=== PATIENT | female | born 1980 | race Two or more races ===

== ENCOUNTER 2023-04-03 10:40 | Emergency (ER) | payer MEDICARE, OTHER ==
[~2023-04-03] VITALS: Ht 167.6 cm; Wt 63.6 kg
[2023-04-03] MEDS ORDERED: ACETAMINOPHEN/CODEINE#3 (300/30mg) TAB PO ONE (11:30)
[2023-04-03] MEDS ORDERED: DexAMETHasone SOD PHOS 10MG/1ML VIAL INJ IM ONE (11:30)
[2023-04-03] MEDS ORDERED: diphenhdrAMINE HCL 25 MG CAP PO ONE (11:30)
[2023-04-03 11:38] VITALS: TEMP 99.8
[2023-04-03 12:00] LABS: Basophils # (auto) 0.1 10 ^3/uL (0-0.2); Basophils % (auto) 0.6 % (0.0-2.0); Eosinophils # (auto) 0.1 10 ^3/uL (0-0.8); Eosinophils % (auto) 0.7 % (0.0-7.0); Hematocrit 41.8 % (36.0-46.0); Hemoglobin 13.9 g/dL (12.2-16.2); Lymphocytes # (auto) 0.9 10 ^3/uL (0.4-5.4); Lymphocytes % (auto) 8.8 % (10.0-50.0); Mean Corpuscular Hemoglobin 30.7 pg (28.0-32.0); Mean Corpuscular Hgb Conc. 33.3 g/dL (32.0-36.0); Mean Corpuscular Volume 92.3 fL (80.0-100.0); Monocytes # (auto) 0.8 10 ^3/uL (0-1.3); Monocytes % (auto) 7.7 % (0.0-12.0); Neutrophils # (auto) 8.4 10 ^3/uL (1.6-8.6); Neutrophils % (auto) 82.2 % (37.0-80.0); Red Blood Cells 4.53 10^6/uL (4.0-5.20); Red Cell Distribution Width 12.3 % (11.8-14.3); White Blood Cell 10.2 10^3/uL (4.4-10.8)
[2023-04-03 12:10] LABS: Alanine Aminotransferase 44 U/L (7-40); Albumin 4.7 g/dL (3.2-4.8); Alkaline Phosphatase 197 U/L (46-116); Anion Gap 8 (5-15); Aspartate Aminotransferase 26 U/L (13-40); BUN/Creatinine Ratio 13.5 (10.0-20.0); Blood Urea Nitrogen 18 mg/dL (9-23); Calcium 9.1 mg/dL (8.7-10.4); Carbon Dioxide 20 mmol/L (20-30); Chloride 105 mmol/L (98-107); Glucose 142 mg/dL (74-106); Lipase 36 U/L (12-53); Potassium 4.4 mmol/L (3.5-5.1); Sodium 133 mmol/L (136-145)
[2023-04-03 12:11] LABS: Bilirubin, Total 0.6 mg/dL (0.2-1.0); Total Protein 7.9 g/dL (5.7-8.2)
[2023-04-03 12:57] LABS: Urine Bacteria MANY /hpf (None Seen); Urine Blood Negative /uL (Negative); Urine Clarity CLOUDY (Clear); Urine Color Yellow (Yellow); Urine Protein, UAD 3+ (Negative); Urine Specific Gravity 1.026 (1.001-1.035); Urine WBC 15 /hpf (0 - 5)
[2023-04-03 15:21] LABS: COVID19 ANTIGEN SOFIA FIA NEGATIVE (NEGATIVE); Rapid Influenza A Negative (Negative); Rapid Influenza B Negative (Negative)
[2023-04-03 15:39] VITALS: BP 124/88; PULSE 113; RESP 18; O2SAT 96
[2023-04-03] MEDS ORDERED: ACET500T58 PO (15:43)
[2023-04-03] MEDS ORDERED: IBUP-1455 PO (15:43)
[2023-04-03] MEDS ORDERED: LEVO750T8 PO (15:43)
[2023-04-03] MEDS ORDERED: LORA10CA PO (15:43)
== END 2023-04-03 15:51 | disposition home or self-care (01) ==
LOC: ER 10:40
DX: J18.9 Pneumonia, unspecified organism (principal); T78.40XA Allergy, unspecified, initial encounter; K52.9 Noninfective gastroenteritis and colitis, unspecified; N39.0 Urinary tract infection, site not specified; I10 Essential (primary) hypertension; F41.9 Anxiety disorder, unspecified; Z20.822 Contact with and (suspected) exposure to COVID-19; X58.XXXA Exposure to other specified factors, initial encounter
CPT/HCPCS: 36415; 71046; 74176; 80053; 81001; 81025; 83690; 85025; 87426; 87804; 96372; 99285; J1100

== ENCOUNTER 2023-04-07 14:35 | Emergency (ER) | payer MEDICARE, OTHER ==
[~2023-04-07] VITALS: Ht 167.6 cm; Wt 65.0 kg
[~2023-04-07 14:35] MED LIST: ACET500T58 PO; IBUP-1455 PO; LEVO750T8 PO; LORA10CA PO
[2023-04-07] MEDS ORDERED: HYDROcodone-ACET 10/325MG TAB PO ONE (15:30)
[2023-04-07 15:57] LABS: Basophils # (auto) 0 10 ^3/uL (0-0.2); Basophils % (auto) 0.6 % (0.0-2.0); Eosinophils # (auto) 0.2 10 ^3/uL (0-0.8); Eosinophils % (auto) 2.3 % (0.0-7.0); Hematocrit 37.8 % (36.0-46.0); Hemoglobin 12.6 g/dL (12.2-16.2); Lymphocytes # (auto) 0.9 10 ^3/uL (0.4-5.4); Lymphocytes % (auto) 13.2 % (10.0-50.0); Mean Corpuscular Hemoglobin 30.6 pg (28.0-32.0); Mean Corpuscular Hgb Conc. 33.4 g/dL (32.0-36.0); Mean Corpuscular Volume 91.6 fL (80.0-100.0); Monocytes # (auto) 0.4 10 ^3/uL (0-1.3); Monocytes % (auto) 5.6 % (0.0-12.0); Neutrophils # (auto) 5.5 10 ^3/uL (1.6-8.6); Neutrophils % (auto) 78.3 % (37.0-80.0); Red Blood Cells 4.13 10^6/uL (4.0-5.20)
[2023-04-07 16:06] LABS: Chloride 110 mmol/L (98-107); Potassium 4.3 mmol/L (3.5-5.1); Sodium 138 mmol/L (136-145)
[2023-04-07 16:07] LABS: Anion Gap 7 (5-15); Calcium 8.9 mg/dL (8.7-10.4); Carbon Dioxide 21 mmol/L (20-30)
[2023-04-07 16:12] LABS: Blood Urea Nitrogen 26 mg/dL (9-23); Glucose 116 mg/dL (74-106)
[2023-04-07] MEDS ORDERED: TRAM50TA2 PO (16:38)
[2023-04-07] MEDS ORDERED: CLIN150C PO (16:38)
[2023-04-07] MEDS ORDERED: CLINDAMYCIN HCL 150 MG CAP PO ONE (16:45)
[2023-04-07 18:00] VITALS: BP 125/87; PULSE 86; RESP 17; TEMP 98; O2SAT 98
== END 2023-04-07 18:18 | disposition home or self-care (01) ==
LOC: ER 14:35
DX: L03.116 Cellulitis of left lower limb (principal); I10 Essential (primary) hypertension
CPT/HCPCS: 36415; 80048; 85025; 93971

== ENCOUNTER 2023-04-14 16:03 | Emergency (ER) | payer MEDICARE, OTHER ==
[~2023-04-14] VITALS: Ht 167.6 cm; Wt 63.7 kg
[~2023-04-14 16:03] MED LIST changes: +CLIN150C PO; +TRAM50TA2 PO
[2023-04-14 16:11] VITALS: BP 118/83; PULSE 86; RESP 18; O2SAT 98
[2023-04-14 17:07] LABS: Basophils # (auto) 0.1 10 ^3/uL (0-0.2); Basophils % (auto) 0.9 % (0.0-2.0); Eosinophils # (auto) 0.1 10 ^3/uL (0-0.8); Eosinophils % (auto) 1.3 % (0.0-7.0); Hematocrit 38.6 % (36.0-46.0); Hemoglobin 12.4 g/dL (12.2-16.2); Lymphocytes # (auto) 1.6 10 ^3/uL (0.4-5.4); Lymphocytes % (auto) 17.9 % (10.0-50.0); Mean Corpuscular Hemoglobin 29.5 pg (28.0-32.0); Mean Corpuscular Hgb Conc. 32.2 g/dL (32.0-36.0); Mean Corpuscular Volume 91.7 fL (80.0-100.0); Monocytes # (auto) 0.7 10 ^3/uL (0-1.3); Monocytes % (auto) 7.4 % (0.0-12.0); Neutrophils # (auto) 6.5 10 ^3/uL (1.6-8.6); Neutrophils % (auto) 72.5 % (37.0-80.0); Nucleated Red Blood Cells % 0.1 %; Red Blood Cells 4.21 10^6/uL (4.0-5.20); Red Cell Distribution Width 13.1 % (11.8-14.3)
[2023-04-14 17:27] LABS: Alanine Aminotransferase 22 U/L (7-40); Albumin 4.3 g/dL (3.2-4.8); Alkaline Phosphatase 162 U/L (46-116); Anion Gap 5 (5-15); Aspartate Aminotransferase 26 U/L (13-40); BUN/Creatinine Ratio 11.8 (10.0-20.0); Blood Urea Nitrogen 14 mg/dL (9-23); Calcium 8.9 mg/dL (8.7-10.4); Carbon Dioxide 27 mmol/L (20-30); Chloride 106 mmol/L (98-107); Glucose 85 mg/dL (74-106); Potassium 4.4 mmol/L (3.5-5.1); Sodium 138 mmol/L (136-145)
[2023-04-14 17:28] LABS: Bilirubin, Total 0.3 mg/dL (0.2-1.0); Total Protein 7.5 g/dL (5.7-8.2)
[2023-04-14 18:23] LABS: Urine Bacteria FEW /hpf (None Seen); Urine Blood Negative /uL (Negative); Urine Clarity HAZY (Clear); Urine Color Yellow (Yellow); Urine Protein, UAD 1+ (Negative); Urine Specific Gravity 1.019 (1.001-1.035); Urine Urobilinogen Normal (Negative); Urine WBC 4 /hpf (0 - 5); Urine pH 5.5 (5.0-8.0)
[2023-04-14] MEDS ORDERED: MELO-335 PO (22:45)
[2023-04-15] MEDS ORDERED: CEPH500C PO (00:16)
[2023-04-15] MEDS ORDERED: BACDST PO (00:16)
== END 2023-04-15 00:35 | disposition home or self-care (01) ==
LOC: ER 16:03
DX: L03.116 Cellulitis of left lower limb (principal)
CPT/HCPCS: 36415; 80053; 81001; 83605; 85025; 87040

== ENCOUNTER 2024-02-16 13:16 | Inpatient (IN) | payer MEDICARE, OTHER ==
[~2024-02-16] VITALS: Ht 167.6 cm; Wt 73.0 kg
[~2024-02-16 13:16] MED LIST changes: +BACDST PO; +CEPH500C PO; +MELO15TA29 PO
[2024-02-16 14:28] LABS: Basophils # (auto) 0 10 ^3/uL (0-0.2); Basophils % (auto) 0.5 % (0.0-2.0); Eosinophils # (auto) 0.3 10 ^3/uL (0-0.8); Eosinophils % (auto) 4.4 % (0.0-7.0); Hematocrit 37.9 % (36.0-46.0); Hemoglobin 12.3 g/dL (12.2-16.2); Lymphocytes # (auto) 1.3 10 ^3/uL (0.4-5.4); Lymphocytes % (auto) 21.2 % (10.0-50.0); Mean Corpuscular Hemoglobin 30.1 pg (28.0-32.0); Mean Corpuscular Hgb Conc. 32.5 g/dL (32.0-36.0); Mean Corpuscular Volume 92.5 fL (80.0-100.0); Monocytes # (auto) 0.4 10 ^3/uL (0-1.3); Monocytes % (auto) 6.9 % (0.0-12.0); Neutrophils # (auto) 4.1 10 ^3/uL (1.6-8.6); Platelet Count (auto) 169 10^3/uL (140-450); Red Blood Cells 4.09 10^6/uL (4.0-5.20); Red Cell Distribution Width 14.1 % (11.8-14.3); White Blood Cell 6.1 10^3/uL (4.4-10.8)
[2024-02-16 14:57] LABS: Albumin 4.6 g/dL (3.2-4.8); Alkaline Phosphatase 96 U/L (46-116); Anion Gap 7 (5-15); Aspartate Aminotransferase 36 U/L (13-40); BUN/Creatinine Ratio 14.3 (10.0-20.0); Bilirubin, Total 0.3 mg/dL (0.2-1.0); Blood Urea Nitrogen 20 mg/dL (9-23); Calcium 9.5 mg/dL (8.7-10.4); Carbon Dioxide 24 mmol/L (20-31); Chloride 110 mmol/L (98-107); Glucose 165 mg/dL (74-106); Potassium 3.7 mmol/L (3.5-5.1); Sodium 141 mmol/L (136-145); Total Protein 7.2 g/dL (5.7-8.2)
[2024-02-16 15:01] LABS: Alanine Aminotransferase 25 U/L (7-40)
[2024-02-16 17:45] LABS: Urine Blood TRACE /uL (Negative); Urine Clarity Turbid (Clear); Urine Color Light-Yellow (Yellow); Urine Protein, UAD 1+ (Negative); Urine Specific Gravity 1.022 (1.001-1.035); Urine Urobilinogen Normal (Negative); Urine pH 5.5 (5.0-9.0)
[2024-02-16] MEDS: SODIUM CHLORIDE 0.9% 1,000 ML IV ONE (17:45)
[2024-02-16 18:50] VITALS: PULSE 62; RESP 12; O2SAT 98
[2024-02-16] MEDS: ONDANSETRON HCL 4 MG/2 ML VIAL IV ONE (18:50)
[2024-02-16] MEDS: MORPHINE SULFATE 4 MG/ML SYR/VIAL IV ONE (18:50)
[2024-02-16 19:20] VITALS: PULSE 67; RESP 12; O2SAT 98
[2024-02-16] MEDS ORDERED: ACETAMINOPHEN 500 MG TAB PO PRN (22:30)
[2024-02-16] MEDS ORDERED: ONDANSETRON HCL 4 MG/2 ML VIAL IV PRN (22:30)
[2024-02-16] MEDS: traMADol HCL 50 MG TAB PO PRN (23:01)
[2024-02-16 23:21] LABS: INR 1.04 (0.9-1.15); Partial Thromboplastin Time 28.2 SEC (24.5-34.5)
[2024-02-16] MEDS: SODIUM CHLORIDE 0.9% 500 ML IV ONE (23:26)
[2024-02-17 05:00] VITALS: BP 117/72; PULSE 82; RESP 20; TEMP 97.7; O2SAT 96
[2024-02-17] MEDS: HYDROCORTISONE 2.5% TOPICAL CREAM 30GM TUBE TOP SCH (06:00)
[2024-02-17] MEDS: POTASSIUM EFFERVESENT TAB 25 MEQ PO ONE (06:18)
[2024-02-17] MEDS: cefTRIAXone 1GM/50ML D5W 50 ML IV SCH (06:19)
[2024-02-17 06:57] LABS: Basophils # (auto) 0 10 ^3/uL (0-0.2); Basophils % (auto) 0.6 % (0.0-2.0); Eosinophils # (auto) 0.2 10 ^3/uL (0-0.8); Eosinophils % (auto) 3.8 % (0.0-7.0); Hematocrit 32.4 % (36.0-46.0); Hemoglobin 10.4 g/dL (12.2-16.2); Lymphocytes # (auto) 1.4 10 ^3/uL (0.4-5.4); Lymphocytes % (auto) 30.8 % (10.0-50.0); Mean Corpuscular Hgb Conc. 32.2 g/dL (32.0-36.0); Mean Corpuscular Volume 93.1 fL (80.0-100.0); Monocytes # (auto) 0.5 10 ^3/uL (0-1.3); Monocytes % (auto) 10.7 % (0.0-12.0); Neutrophils # (auto) 2.4 10 ^3/uL (1.6-8.6); Neutrophils % (auto) 54.1 % (37.0-80.0); Platelet Count (auto) 135 10^3/uL (140-450); Red Blood Cells 3.48 10^6/uL (4.0-5.20); White Blood Cell 4.5 10^3/uL (4.4-10.8)
[2024-02-17 07:06] LABS: Chloride 114 mmol/L (98-107); Potassium 4.3 mmol/L (3.5-5.1); Sodium 141 mmol/L (136-145)
[2024-02-17 07:07] LABS: Anion Gap 4 (5-15); Carbon Dioxide 23 mmol/L (20-31)
[2024-02-17 07:08] LABS: Calcium 8.2 mg/dL (8.7-10.4)
[2024-02-17 07:13] LABS: BUN/Creatinine Ratio 15.7 (10.0-20.0); Blood Urea Nitrogen 22 mg/dL (9-23); Glucose 101 mg/dL (74-106)
[2024-02-17 08:00] VITALS: BP 101/67; PULSE 68; PULSE 69; RESP 18; TEMP 97.6; O2SAT 100
[2024-02-17] MEDS: MORPHINE SULFATE INJ 2 MG/ml SYRG IV PRN (08:53)
[2024-02-17] MEDS: lamoTRIgine 25 MG TAB PO SCH (08:53)
[2024-02-17] MEDS: GABAPENTIN 300 MG CAP PO SCH (08:53)
[2024-02-17] MEDS: SERTRALINE HCL 50 MG TAB PO SCH (08:54)
[2024-02-17 09:06] LABS: Hepatitis B Surface Antigen Negative (Negative)
[2024-02-17 09:28] LABS: Hepatitis C Antibody Negative (Negative)
[2024-02-17] MEDS ORDERED: AZITHROMYCIN 500MG/ 250ML 250 ML IV SCH (10:00)
[2024-02-17] MEDS: METOPROLOL TARTRATE 50 MG TAB PO ONE (10:00)
[2024-02-17] MEDS: AZITHROMYCIN 500MG/ 250ML 250 ML IV ONE (11:01)
[2024-02-17 12:00] VITALS: BP 124/80; PULSE 67; RESP 18; TEMP 98.7; O2SAT 93
[2024-02-17 12:35] LABS: Urine Bacteria FEW /hpf (None Seen); Urine Blood 2+ /uL (Negative); Urine Clarity Clear (Clear); Urine Color Light-Yellow (Yellow); Urine Protein, UAD Negative (Negative); Urine Specific Gravity 1.015 (1.001-1.035); Urine Urobilinogen Normal (Negative); Urine WBC 8 /hpf (0 - 5); Urine pH 5.5 (5.0-9.0)
[2024-02-17 12:44] LABS: Barbiturate Scree,Urine Neg (NEGATIVE); Benzodiazephine Screen, Urine Neg (NEGATIVE); Cannabinoid Screen, Urine Neg (NEGATIVE); Cocaine Screen, Urine Neg (NEGATIVE); Opiate Scree,Urine Neg (NEGATIVE); Phencyclidine Screen, Urine Neg (NEGATIVE)
[2024-02-17 12:45] LABS: Amphetamine Screen, Urine Neg (NEGATIVE)
[2024-02-17 13:31] LABS: COVID19 ANTIGEN SOFIA FIA NEGATIVE (NEGATIVE)
[2024-02-17 16:00] VITALS: BP 93/64; PULSE 81; RESP 18; TEMP 97.2; O2SAT 90
[2024-02-17 20:00] VITALS: PULSE 71; RESP 17; O2SAT 95
[2024-02-17 21:00] VITALS: BP 119/83; PULSE 71; RESP 17; TEMP 97.9; O2SAT 94
[2024-02-17] MEDS: GABAPENTIN 100 MG CAP PO SCH (21:07)
[2024-02-17] MEDS: HYDROcodone-ACET 5/325MG TAB PO PRN (21:08)
[2024-02-17] MEDS: LORazepam 0.5 MG TAB PO PRN (23:42)
[2024-02-18] VITALS (8 sets, daily range): BP systolic 102–148; BP diastolic 72–90; PULSE 54–93; RESP 18–20; TEMP 36.9; O2SAT 92–96
[2024-02-18 07:36] LABS: Basophils # (auto) 0 10 ^3/uL (0-0.2); Basophils % (auto) 0.9 % (0.0-2.0); Eosinophils # (auto) 0.1 10 ^3/uL (0-0.8); Eosinophils % (auto) 3.7 % (0.0-7.0); Hematocrit 33.9 % (36.0-46.0); Hemoglobin 11.1 g/dL (12.2-16.2); Lymphocytes % (auto) 28.7 % (10.0-50.0); Mean Corpuscular Hemoglobin 30.3 pg (28.0-32.0); Mean Corpuscular Hgb Conc. 32.7 g/dL (32.0-36.0); Mean Corpuscular Volume 92.6 fL (80.0-100.0); Monocytes # (auto) 0.3 10 ^3/uL (0-1.3); Monocytes % (auto) 9.6 % (0.0-12.0); Neutrophils % (auto) 57.1 % (37.0-80.0); Nucleated Red Blood Cells % 0.1 %; Platelet Count (auto) 108 10^3/uL (140-450); Red Blood Cells 3.66 10^6/uL (4.0-5.20); Red Cell Distribution Width 13.9 % (11.8-14.3); White Blood Cell 3.4 10^3/uL (4.4-10.8)
[2024-02-18 07:46] LABS: Anion Gap 5 (5-15); Carbon Dioxide 22 mmol/L (20-31); Chloride 115 mmol/L (98-107); Potassium 4.1 mmol/L (3.5-5.1); Sodium 142 mmol/L (136-145)
[2024-02-18 07:47] LABS: Calcium 8.6 mg/dL (8.7-10.4)
[2024-02-18 07:51] LABS: Glucose 93 mg/dL (74-106)
[2024-02-18 07:52] LABS: BUN/Creatinine Ratio 10.9 (10.0-20.0); Blood Urea Nitrogen 14 mg/dL (9-23)
[2024-02-18] MEDS: AZITHROMYCIN 500MG/ 250ML 250 ML IV SCH (08:48)
[2024-02-18] MEDS ORDERED: CYAN-17 PO (12:08)
[2024-02-18] MEDS ORDERED: AZITTAB PO (12:08)
[2024-02-18] MEDS ORDERED: GAB100C PO (12:08)
[2024-02-18] MEDS ORDERED: CEPH250C PO (12:08)
[2024-02-18] MEDS ORDERED: ERGO1CAP23 PO (12:08)
[2024-02-18] MEDS: CYANOCOBALAMIN (B-12) 1000 MCG/1 ML VIAL IM ONE (13:17)
[2024-02-18] MEDS: ERGOCALCIFEROL 50,000 UNIT(1.25MG) CAP PO SCH (13:18)
== END 2024-02-18 18:30 | disposition home or self-care (01) | DRG 604 ==
LOC: ER 13:16 → TELE 22:28 → TELE-WESTW 23:50 → WEST WING 02-17 21:26 → TELE-WESTW 02-17 23:23
PROVIDERS: ADMIT Internal Medicine; ATTEND Surgery
DX: S01.01XA Laceration without foreign body of scalp, initial encounter (principal); J15.69 Pneumonia due to other Gram-negative bacteria; J15.9 Unspecified bacterial pneumonia; N30.00 Acute cystitis without hematuria; N12 Tubulo-interstitial nephritis, not specified as acute or chronic; G47.10 Hypersomnia, unspecified; G47.419 Narcolepsy without cataplexy; K70.30 Alcoholic cirrhosis of liver without ascites; F10.10 Alcohol abuse, uncomplicated; Y90.9 Presence of alcohol in blood, level not specified; K80.20 Calculus of gallbladder without cholecystitis without obstruction; Z20.822 Contact with and (suspected) exposure to COVID-19; I12.9 Hypertensive chronic kidney disease with stage 1 through stage 4 chronic kidney disease, or unspecified chronic kidney disease; N18.32 Chronic kidney disease, stage 3b; F31.9 Bipolar disorder, unspecified; L40.9 Psoriasis, unspecified; F41.9 Anxiety disorder, unspecified; W18.39XA Other fall on same level, initial encounter; M54.50 Low back pain, unspecified; Z99.2 Dependence on renal dialysis; Z79.899 Other long term (current) drug therapy; Y93.89 Activity, other specified; Y92.89 Other specified places as the place of occurrence of the external cause; Y99.8 Other external cause status; Z83.3 Family history of diabetes mellitus
CPT/HCPCS: 36415; 70450; 70551; 71045; 74176; 80048; 80053; 80307; 80320; 81001; 81003; 82140; 82306; 82607; 82962; 83036; 83605; 83690; 83735; 83880; 84443; 84484; 84702; 85025; 85610; 85730; 86301; 86803; 87081; 87086; 87340; 87426; 93005; 93306; 93886; 96361; 96374; 96375; 97110; 97116; 97163; 97530; G0378; J2405

== ENCOUNTER 2024-05-11 20:53 | Emergency (ER) | payer MEDICARE, OTHER ==
[~2024-05-11] VITALS: Ht 167.6 cm; Wt 67.6 kg
[~2024-05-11 20:53] MED LIST changes: +AZITTAB PO; -BACDST PO; +CEPH250C PO; -CEPH500C PO; -CLIN150C PO; +CYAN-17 PO; +ERGO1CAP23 PO; +GAB100C PO; -IBUP-1455 PO; -LEVO750T8 PO; -LORA10CA PO; -MELO15TA29 PO
[2024-05-11 21:05] VITALS: BP 146/101; PULSE 83; RESP 18; O2SAT 93
[2024-05-11 21:15] VITALS: TEMP 100.5
[2024-05-11] MEDS: ACETAMINOPHEN 325 MG TAB PO ONE (21:15)
[2024-05-11 21:37] LABS: Basophils # (auto) 0 10 ^3/uL (0-0.2); Basophils % (auto) 0.3 % (0.0-2.0); Eosinophils # (auto) 0.2 10 ^3/uL (0-0.8); Eosinophils % (auto) 3.3 % (0.0-7.0); Hematocrit 36.4 % (36.0-46.0); Hemoglobin 11.8 g/dL (12.2-16.2); Lymphocytes # (auto) 0.8 10 ^3/uL (0.4-5.4); Lymphocytes % (auto) 11.1 % (10.0-50.0); Mean Corpuscular Hemoglobin 29.3 pg (28.0-32.0); Mean Corpuscular Hgb Conc. 32.5 g/dL (32.0-36.0); Mean Corpuscular Volume 90.2 fL (80.0-100.0); Monocytes # (auto) 0.6 10 ^3/uL (0-1.3); Monocytes % (auto) 7.7 % (0.0-12.0); Neutrophils # (auto) 5.6 10 ^3/uL (1.6-8.6); Neutrophils % (auto) 77.6 % (37.0-80.0); Nucleated Red Blood Cells % 0.1 %; Platelet Count (auto) 121 10^3/uL (140-450); Red Blood Cells 4.03 10^6/uL (4.0-5.20); Red Cell Distribution Width 14.5 % (11.8-14.3); White Blood Cell 7.2 10^3/uL (4.4-10.8)
--- NOTE | 2024-05-11 21:37 | DVH ---
Exam: CT CT AB PEL WO CON-NO ORAL OR IV History: abd pain Comparison Study: None available at time of dictation. TECHNIQUE: Multidetector CT of the abdomen was performed from lung bases to pubic symphysis. Imaging was performed without IV contrast. Axial, coronal and sagittal multiplanar reformats were obtained fr om the axial data set by the technologist. Radiation Dose Information: CT Dose: CTDI volume is 6.87 mGy. Dose-length product is 376.6 mGy*cm FINDINGS: Evaluation of solid organs is limited due to lack of intravenous contrast use. Findings: Lung Bases: Scarring or atelectasis posterior costophrenic angles bilaterally. Not much different dahlia n Normal heart size. No pleural or pericardial effusion. Liver: The liver is normal in size. No focal lesions. Gallbladder and Biliary Tree: Small gallstones in the gallbladder. Spleen: Unremarkable Pancreas: The pancreas is grossly normal in appearance. Adrenal Glands: Unremarkable Kidneys: Kidneys are grossly normal without calculi or hydronephrosis. Bladder: Grossly unremarkable for degree of distention. Bowel: The stomach is grossly normal in appearance. Small bowel and colon are normal in caliber and d istribution. The appendix is not visualized; however, no secondary findings of acute appendicitis id entified. Ascites: Absent Lymphadenopathy: No mesenteric, retroperitoneal or periportal lymphadenopathy. Abdominal Wall and Mesentery: Unremarkable. Vasculature: The visualized abdominal aorta is normal in size and caliber. Evaluation of abdominal a nd pelvic vessels is limited due to lack of intravenous contrast. Pelvic Organs: Unremarkable Musculoskeletal: No aggressive focal bony lesions, acute fractures or dislocation. Soft tissues: Unremarkable IMPRESSION: 1. Small gallstones in the gallbladder 2. Scarring in the lung bases bilaterally not significantly changed from February of 2024. 3. No findings to suggest bowel obstruction. Large stool burden throughout the colon. Radiation optimization: All CT scans at this facility use at least one of these dose optimization radha hniques: automated exposure control mA and/or kV adjustment per patient size (includes targeted exam s where dose is matched to clinical indication) or iterative reconstruction. HS:Y
[2024-05-11 21:46] LABS: Alanine Aminotransferase 14 U/L (7-40); Albumin 4.6 g/dL (3.2-4.8); Alkaline Phosphatase 87 U/L (46-116); Anion Gap 6 (5-15); Aspartate Aminotransferase 14 U/L (13-40); BUN/Creatinine Ratio 12.9 (10.0-20.0); Bilirubin, Total 0.4 mg/dL (0.2-1.0); Blood Urea Nitrogen 19 mg/dL (9-23); Calcium 9.5 mg/dL (8.7-10.4); Carbon Dioxide 22 mmol/L (20-31); Chloride 106 mmol/L (98-107); Glucose 86 mg/dL (74-106); Lipase 24 U/L (12-53); Potassium 4.6 mmol/L (3.5-5.1); Total Protein 7.2 g/dL (5.7-8.2)
[2024-05-11 22:03] LABS: Sodium 134 mmol/L (136-145)
[2024-05-11 22:22] LABS: Urine Bacteria FEW /hpf (None Seen); Urine Blood TRACE /uL (Negative); Urine Clarity Ex.Turbid (Clear); Urine Color Colorless (Yellow); Urine Protein, UAD TRACE (Negative); Urine Specific Gravity 1.012 (1.001-1.035); Urine Squamous Epithelial Cell MANY /hpf (<5); Urine Urobilinogen Normal (Negative); Urine WBC 118 /hpf (0 - 5); Urine pH 5.5 (5.0-9.0)
--- NOTE | 2024-05-11 22:33 | ED.PDOC ---
History of Present Illness HPI Comments 44-year-old female complaining of left upper quadrant abdominal pain for the last two days. Patient was concerned because she has a history of pancreatitis. She was has a history of gallstones. Last episode of pancreatitis he was two months ago. She has been advised by GI specialist she needs surgery on her pancreas and on her gallbladder which he was not been scheduled yet. Patient states he has been feeling very fatigued, lethargic. No new foods no new medications. Chief Complaint: Abdominal Pain Time Seen by MD: 21:00 Primary Care Provider: BENEDICT Reviewed Notes: Nurses Notes Allergies: Coded Allergies: NO KNOWN ALLERGIES (Unverified , 03/10/16) Home Meds Active Scripts Cyanocobalamin (B12) 1,000 Mcg Cap, 1000 MCG PO DAILY for 30 Days, #30 CAP Prov:JAQUELIN BLANCHARD RESIDENT 02/18/24 Gabapentin (Gabapentin) 100 Mg Cap, 100 MG PO BID for 30 Days, #60 CAP Prov:JAQUELIN BLANCHARD [facility] 02/18/24 Ergocalciferol (VITAMIN D 85515 UNIT) 50,000 [place], [address] UNIT PO Q7D for 90 Days, #12 CAP Prov:JAQUELIN BLANCHARD [facility] 02/18/24 Cephalexin (KEFLEX CAPSULE) 250 Mg Cp, 2 CAP PO BID for 4 Days, #28 CAP Prov:JAQUELIN BLANCHARD 02/18/24 Azithromycin (Zithromax Z-Rafiq) 250 Mg Tab, 250 MG PO DAILY for 4 Days, #4 TAB Prov:JAQUELIN BLANCHARD [facility] 02/18/24 Tramadol Hcl (Tramadol Hcl) 50 Mg Tab, 50 MG PO Q8HP PRN for 5 Days, #15 TAB Prov:YOANA LANDA MD 04/07/23 Acetaminophen (Acetaminophen) 500 Mg Tab, 500 MG PO Q4HP PRN, #30 TAB Prov:WENCESLAO MCCLOUD PAC 04/03/23 Information Source: Patient Mode of Arrival: Ambulatory Past Medical History PAST MEDICAL HISTORY: Anxiety, HTN 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 AIRPLANE RENTAL CLERK History Family History Family History: Unknown Social History Smoker: Non-Smoker Alcohol: Denies ETOH Use, Sober Drugs: Denies Drug Use Lives In: Home Constitutional: denies: chills, diaphoresis, fatigue, fever, malaise, sweats, weakness, others EENTM: denies: blurred vision, double vision, ear bleeding, ear discharge, ear drainage, ear pain, ear ringing, eye pain, eye redness, hearing loss, mouth pain, mouth swelling, nasal discharge, nose bleeding, nose congestion, nose pain, photophobia, tearing, throat pain, throat swelling, voice changes, others Respiratory: denies: cough, hemoptysis, orthopnea, SOB at rest, shortness of breath, SOB with excertion, stridor, wheezing, others Cardiovascular: denies: chest pain, dizzy spells, diaphoresis, Dyspnea on exertion, edema, irregular heart beat, left arm pain, lightheadedness, palpitati ons, PND, syncope, others Gastrointestinal: reports: abdomen distended, abdominal pain, nausea; denies: blood streaked bowels, constipated, diarrhea, dysphagia, difficulty swallowing, hematemesis, melena, poor appetite, poor fluid intake, rectal bleeding, rectal pain, vomiting, others Genitourinary: denies: abnormal vagina bleeding, burning, dyspareunia, dysuria, flank pain, frequency, hematuria, incontinence, pain, , vagina discharge, urgency, others Neurological: denies: dizziness, fainting, headache, left sided numbness, left sided weakness, numbness, paresthesia, pre-existing deficit, right sided numbness, right sided weakness, seizure, speech problems, tingling, tremors, weakness, others Musculoskeletal: denies: back pain, gout, joint pain, joint swelling, muscle pain, muscle stiffness, neck pain, others Integumetry: denies: bruises, change in color, change in hair/nails, dryness, laceration, lesions, lumps, rash, wounds, others Allergic/Immunocompromised: denies: Difficulty Healing, Frequent Infections, Hives, Itching, others Hematologic/Lymphatic: denies: anemia, blood clots, easy bleeding, easy bruising, swollen glands, others Endocrine: denies: excessive hunger, excessive sweating, excessive thirst, excessive urination, flushing, intolerance to cold, intolerance to heat, unexplained weight gain, unexplained weight loss, others Psychiatric: denies: anxiety, bipolar disorder, depression, hopeless, panic disorder, schizophrenia, sleepless, suicidal, others Physical Exam General Appearance: No Apparent Distress, Normal HEENT: Normal ENT Inspection, Pharynx Normal, TMs Normal Neck: Full Range of Motion, Non-Tender, Normal, Normal Inspection Respiratory: Chest Non-Tender, Lungs Clear, No Accessory Muscle Use, No Respiratory Distress, Normal Breath Sounds Cardiovascular: No Edema, No JVD, No Murmur, No Gallop, Normal Peripheral Pulses, Regular Rate/Rhythm Breast Exam: Deferred Gastrointestinal: LUQ (Tender to palpation), No Organomegaly, Normal Bowel Sounds, Soft Genitalia: Deferred Pelvic: Deferred Rectal: Deferred Extremities: No calf tenderness, Normal capillary refill, Normal inspection, Normal range of motion, Non-tender, No pedal edema Musculoskeletal : Apperance: Normal Neurologic: Alert, downstairs maid II-XII nml as Tested, No Motor Deficits, Normal Affect, Normal Mood, No Sensory Deficits Cerebellar Function: Normal Reflexes: Normal Skin: Dry, Normal Color, Warm Lymphatic: No Adenopathy Was a procedure done? Was a procedure done?: No Differential Dx Considerations may include: Pancreatitis, cholecystitis, urinary tract infection, pyelonephritis X-Ray, Labs, Meds, VS Vital Signs Date Time Temp Pulse Resp B/P (MAP) Pulse Ox O2 Delivery O2 Flow Rate FiO2 05/11/24 21:15 100.5 05/11/24 21:05 100.5 83 18 146/101 (116) 93 Lab Test 05/11/24 21:11 05/11/24 21:03 Range/Units White Blood Count 7.2 4.4-10.8 10^3/uL Red Blood Count 4.03 4.0-5.20 10^6/uL Hemoglobin 11.8 L 12.2-16.2 g/dL Hematocrit 36.4 36.0-46.0 % Mean Corpuscular Volume 90.2 80.0-100.0 fL Mean Corpuscular Hemoglobin 29.3 28.0-32.0 pg Mean Corpuscular Hemoglobin Concent 32.5 32.0-36.0 g/dL Red Cell Distribution Width 14.5 H 11.8-14.3 % Platelet Count 121 L 140-450 10^3/uL Mean Platelet Volume 9.0 6.9-10.8 fL Neutrophils (%) (Auto) 77.6 37.0-80.0 % Lymphocytes (%) (Auto) 11.1 10.0-50.0 % Monocytes (%) (Auto) 7.7 0.0-12.0 % Eosinophils (%) (Auto) 3.3 0.0-7.0 % Basophils (%) (Auto) 0.3 0.0-2.0 % Neutrophils # (Auto) 5.6 1.6-8.6 10 ^3/uL Lymphocytes # (Auto) 0.8 0.4-5.4 10 ^3/uL Monocytes # (Auto) 0.6 0-1.3 10 ^3/uL Eosinophils # (Auto) 0.2 0-0.8 10 ^3/uL Basophils # (Auto) 0 0-0.2 10 ^3/uL Nucleated Red Blood Cells 0.1 % Sodium Level 134 L 136-145 mmol/L Potassium Level 4.6 3.5-5.1 mmol/L Chloride Level 106 98-107 mmol/L Carbon Dioxide Level 22 20-31 mmol/L Anion Gap 6 5-15 Blood Urea Nitrogen 19 9-23 mg/dL Creatinine 1.47 H 0.550-1.02 mg/dL Glomerular Filtration Rate Calc 45 >90 mL/min BUN/Creatinine Ratio 12.9 10.0-20.0 Serum Glucose 86 74-106 mg/dL Calcium Level 9.5 8.7-10.4 mg/dL Total Bilirubin 0.4 0.2-1.0 mg/dL Aspartate Amino Transferase (AST) 14 13-40 U/L Alanine Aminotransferase (ALT) 14 7-40 U/L Alkaline Phosphatase 87 46-116 U/L Total Protein 7.2 5.7-8.2 g/dL Albumin 4.6 3.2-4.8 g/dL Lipase 24 12-53 U/L Urine Color Colorless Yellow Urine Clarity Ex.turbid Clear Urine pH 5.5 5.0-9.0 Urine Specific [place] 1.012 1.001-1.035 Urine Protein Trace H Negative Urine Ketones Negative Negative Urine Blood Trace H Negative /uL Urine Nitrite Negative Negative Urine Bilirubin Negative Negative Urine Urobilinogen Normal Negative mg/dL Urine Leukocyte Esterase 3+ Negative /uL Urine RBC 6 0 - 4 /hpf Urine WBC 118 0 - 5 /hpf Urine Squamous Epithelial Cells Many <5 /hpf Urine Bacteria Few H None Seen /hpf Urine Glucose Normal Normal mg/dL Current Medications Medications (Trade) Dose Ordered Sig/Juancarlos Route Start Time Stop Time Status Last Admin Acetaminophen (Tylenol Tablet) 1,000 mg ONCE ONCE PO 05/11/24 21:15 05/11/24 21:16 DC 05/11/24 21:15 X-Ray, Labs, Meds, VS Comment Imaging: X-rays and CT scans were reviewed and interpreted by this provider, imaging shows no fractures and no pathological disease. Pending radiology review. Laboratory: Labs reviewed and interpreted by this provider. No significant abnormalities noted. Patient has prior medical visits reviewed. Med reconciliation performed Vital signs reviewed Time of 1ST Reevaluation: 22:41 Reevaluation 1ST: Improved Patient Education/Counseling: Diagnosis, Treatment, Need For Follow Up (Follow up in the next 24 hours if symptoms worsen.) Family Education/Counseling: Diagnosis Departure 1 Departure Time of Disposition: 22:40 Impression: Primary Impression: Urinary tract infection Qualified Codes: N30.01 - Acute cystitis with hematuria Disposition: HOME / SELF CARE / HOMELESS Condition: Fair e-Prescriptions Nitrofurantoin Monohydrate Mac (Macrobid) 100 Mg Cap 100 MG PO BID for 7 Days, #14 CAP Prov: LUPE BROWNE 05/11/24 Discharged With: Self Critical Care Note Critical Care Time?: No Stability Stability form required: No Heart Score Heart Score: Heart Score Response (Comments) Value History N/A 0 EKG N/A 0 Age N/A 0 Risk Factors N/A 0 Troponin N/A 0 Total 0 LUPE BROWNE May 11, 2024 22:33
[2024-05-11] MEDS ORDERED: NITR-87 PO (22:41)
[2024-05-11] MEDS: MORPHINE SULFATE 4 MG/ML SYR/VIAL IM ONE (23:15)
[2024-05-11] MEDS: ONDANSETRON ODT 4 MG TAB PO ONE (23:16)
[2024-05-11] MEDS: cefTRIAXone SOD 1,000 MG VL IM ONE (23:16)
== END 2024-05-11 23:16 | disposition home or self-care (01) ==
LOC: ER 20:53
DX: N39.0 Urinary tract infection, site not specified (principal); I10 Essential (primary) hypertension; F41.9 Anxiety disorder, unspecified; Z98.890 Other specified postprocedural states; Z79.899 Other long term (current) drug therapy
CPT/HCPCS: 36415; 74176; 80053; 81001; 83690; 85025; 96372; 99285; J0696

== ENCOUNTER 2024-08-31 17:47 | Emergency (ER) | payer MEDICARE, OTHER ==
[~2024-08-31] VITALS: Ht 165.1 cm; Wt 69.6 kg
[~2024-08-31 17:47] MED LIST changes: +NITR-87 PO
--- NOTE | 2024-08-31 18:19 | ED.PDOC ---
History of Present Illness(SKN Chief Complaint: Rash Time Seen by MD: 17:53 Primary Care Provider: [facility] History of Present Illness: Nurses Notes, Medications, Allergies Allergies: Coded Allergies: NO KNOWN ALLERGIES (Unverified , 03/10/16) Home Meds Active Scripts Nitrofurantoin Monohydrate Mac (Macrobid) 100 Mg Cap, 100 MG PO BID for 7 Days, #14 CAP Prov:LUPE BROWNE GUIDE VISITOR 05/11/24 Cyanocobalamin (B12) 1,000 Mcg Cap, 1000 MCG PO DAILY for 30 Days, #30 CAP Prov:JAQUELIN BLANCHARD [facility] 02/18/24 Gabapentin (Gabapentin) 100 Mg Cap, 100 MG PO BID for 30 Days, #60 CAP Prov:JAQUELIN BLANCHARD [facility] 02/18/24 Ergocalciferol (VITAMIN D 12964 UNIT) 50,000 [place], [address] UNIT PO Q7D for 90 Days, #12 CAP Prov:JAQUELIN BLANCHARD [facility] 02/18/24 Cephalexin (KEFLEX CAPSULE) 250 Mg Cp, 2 CAP PO BID for 4 Days, #28 CAP Prov:JAQUELIN BLANCHARD [facility] 02/18/24 Azithromycin (Zithromax Z-Rafiq) 250 Mg Tab, 250 MG PO DAILY for 4 Days, #4 TAB Prov:JAQUELIN BLANCHARD [facility] 02/18/24 Tramadol Hcl (Tramadol Hcl) 50 Mg Tab, 50 MG PO Q8HP PRN for 5 Days, #15 TAB Prov:YOANA LANDA MD 04/07/23 Acetaminophen (Acetaminophen) 500 Mg Tab, 500 MG PO Q4HP PRN, #30 TAB Prov:WENCESLAO MCCLOUD PAC 04/03/23 Information Source: Patient Mode of Arrival: Ambulatory Past Medical History PAST MEDICAL HISTORY: Anxiety, HTN 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: No Pertinent PUMP SERVICE SUPERVISOR History Family History Family History: Unknown Social History Smoker: Non-Smoker Alcohol: Denies ETOH Use, Sober Drugs: Denies Drug Use Lives In: Home Constitutional: denies: chills, diaphoresis, fatigue, fever, malaise, sweats, weakness, others EENTM: denies: blurred vision, double vision, ear bleeding, ear discharge, ear drainage, ear pain, ear ringing, eye pain, eye redness, hearing loss, mouth pain, mouth swelling, nasal discharge, nose bleeding, nose congestion, nose pain, photophobia, tearing, throat pain, throat swelling, voice changes, others Respiratory: denies: cough, hemoptysis, orthopnea, SOB at rest, shortness of breath, SOB with excertion, stridor, wheezing, others Cardiovascular: denies: chest pain, dizzy spells, diaphoresis, Dyspnea on exertion, edema, irregular heart beat, left arm pain, lightheadedness, palpitations, PND, syncope, others Gastrointestinal: denies: abdomen distended, abdominal pain, blood streaked bowels, constipated, diarrhea, dysphagia, difficulty swallowing, hematemesis, melena, nausea, poor appetite, poor fluid intake, rectal bleeding, rectal pain, vomiting, others Genitourinary: denies: abnormal vagina bleeding, burning, dyspareunia, dysuria, flank pain, frequency, hematuria, incontinence, pain, , vagina discharge, urgency, others Neurological: denies: dizziness, fainting, headache, left sided numbness, left sided weakness, numbness, paresthesia, pre-existing deficit, right sided numbness, right sided weakness, seizure, speech problems, tingling, tremors, weakness, others Musculoskeletal: denies: back pain, gout, joint pain, joint swelling, muscle pain, muscle stiffness, neck pain, others Integumetry: reports: rash; denies: bruises, change in color, change in hair/nails, dryness, laceration, lesions, lumps, wounds, others Allergic/Immunocompromised: denies: Difficulty Healing, Frequent Infections, Hives, Itching, others Hematologic/Lymphatic: denies: anemia, blood clots, easy bleeding, easy bruising, swollen glands, others Endocrine: denies: excessive hunger, excessive sweating, excessive thirst, excessive urination, flushing, intolerance to cold, intolerance to heat, unexplained weight gain, unexplained weight loss, others Psychiatric: denies: anxiety, bipolar disorder, depression, hopeless, panic disorder, schizophrenia, sleepless, suicidal, others Physical Exam General Appearance: No Apparent Distress, Normal HEENT: Normal ENT Inspection, Pharynx Normal, TMs Normal Neck: Full Range of Motion, Non-Tender, Normal, Normal Inspection Respiratory: Chest Non-Tender, Lungs Clear, No Accessory Muscle Use, No Respiratory Distress, Normal Breath Sounds Cardiovascular: No Edema, No JVD, No Murmur, No Gallop, Normal Peripheral Pulses, Regular Rate/Rhythm Breast Exam: Deferred Gastrointestinal: No Organomegaly, Non Tender, No Pulsatile Mass, Normal Bowel Sounds, Soft Genitalia: Deferred Pelvic: Deferred Rectal: Deferred Extremities: No calf tenderness, Normal capillary refill, Normal inspection, Normal range of motion, Non-tender, No pedal edema Musculoskeletal : Apperance: Normal Neurologic: Alert, proofreader II-XII nml as Tested, No Motor Deficits, Normal Affect, Normal Mood, No Sensory Deficits Cerebellar Function: Normal Reflexes: Normal Skin: Dry, Normal Color, Warm Lymphatic: No Adenopathy Was a procedure done? Was a procedure done?: No Differential Diagnosis (INTG) Differential Diagnosis: Abrasion Differential Diagnosis: Impetigo, Lyme disease, Scabies, Tinea X-Ray, Labs, Meds, VS Vital Signs Date Time Temp Pulse Resp B/P (MAP) Pulse Ox O2 Delivery O2 Flow Rate FiO2 08/31/24 18:23 98.4 75 20 135/86 (102) 93 98.4 08/31/24 18:23 75 20 93 Room Air 08/31/24 18:07 98.4 75 20 135/86 (102) 93 98.4 Lab Test 08/31/24 19:47 Range/Units White Blood Count 5.2 4.4-10.8 10^3/uL Red Blood Count 4.28 4.0-5.20 10^6/uL Hemoglobin 12.6 12.2-16.2 g/dL Hematocrit 38.0 36.0-46.0 % Mean Corpuscular Volume 88.7 80.0-100.0 fL Mean Corpuscular Hemoglobin 29.3 28.0-32.0 pg Mean Corpuscular Hemoglobin Concent 33.1 32.0-36.0 g/dL Red Cell Distribution Width 13.7 11.8-14.3 % Platelet Count 131 L 140-450 10^3/uL Mean Platelet Volume 9.3 6.9-10.8 fL Neutrophils (%) (Auto) 60.9 37.0-80.0 % Lymphocytes (%) (Auto) 26.1 10.0-50.0 % Monocytes (%) (Auto) 9.3 0.0-12.0 % Eosinophils (%) (Auto) 3.1 0.0-7.0 % Basophils (%) (Auto) 0.6 0.0-2.0 % Neutrophils # (Auto) 3.2 1.6-8.6 10 ^3/uL Lymphocytes # (Auto) 1.4 0.4-5.4 10 ^3/uL Monocytes # (Auto) 0.5 0-1.3 10 ^3/uL Eosinophils # (Auto) 0.2 0-0.8 10 ^3/uL Basophils # (Auto) 0 0-0.2 10 ^3/uL Nucleated Red Blood Cells 0.0 % Sodium Level 142 136-145 mmol/L Potassium Level 4.3 3.5-5.1 mmol/L Chloride Level 111 H 98-107 mmol/L Carbon Dioxide Level 23 20-31 mmol/L Anion Gap 8 5-15 Blood Urea Nitrogen 18 9-23 mg/dL Creatinine 1.38 H 0.550-1.02 mg/dL Glomerular Filtration Rate Calc 49 >90 mL/min BUN/Creatinine Ratio 13.0 10.0-20.0 Serum Glucose 116 H 74-106 mg/dL Lactic Acid Level 0.6 0.4-2.0 mmol/L Calcium Level 9.1 8.7-10.4 mg/dL Total Bilirubin 0.2 0.2-1.0 mg/dL Aspartate Amino Transferase (AST) 18 13-40 U/L Alanine Aminotransferase (ALT) 15 7-40 U/L Alkaline Phosphatase 91 46-116 U/L Total Protein 6.5 5.7-8.2 g/dL Albumin 4.3 3.2-4.8 g/dL Time of 1ST Reevaluation: 18:18 Reevaluation 1ST: Unchanged Patient Education/Counseling: Diagnosis, Treatment, Prognosis, Need For Follow Up Family Education/Counseling: No Family Present Departure 1 Departure Disposition: 01 HOME / SELF CARE / HOMELESS Condition: Stable Discharged With: Self Critical Care Note Critical Care Time?: No Stability Stability form required: ÁNGEL Noel Aug 31, 2024 18:19
[2024-08-31 18:23] VITALS: BP 135/86; PULSE 75; RESP 20; TEMP 98.4; O2SAT 93
[2024-08-31 19:58] LABS: Basophils # (auto) 0 10 ^3/uL (0-0.2); Basophils % (auto) 0.6 % (0.0-2.0); Eosinophils # (auto) 0.2 10 ^3/uL (0-0.8); Eosinophils % (auto) 3.1 % (0.0-7.0); Hemoglobin 12.6 g/dL (12.2-16.2); Lymphocytes # (auto) 1.4 10 ^3/uL (0.4-5.4); Lymphocytes % (auto) 26.1 % (10.0-50.0); Mean Corpuscular Hemoglobin 29.3 pg (28.0-32.0); Mean Corpuscular Hgb Conc. 33.1 g/dL (32.0-36.0); Mean Corpuscular Volume 88.7 fL (80.0-100.0); Monocytes # (auto) 0.5 10 ^3/uL (0-1.3); Monocytes % (auto) 9.3 % (0.0-12.0); Neutrophils # (auto) 3.2 10 ^3/uL (1.6-8.6); Neutrophils % (auto) 60.9 % (37.0-80.0); Platelet Count (auto) 131 10^3/uL (140-450); Red Blood Cells 4.28 10^6/uL (4.0-5.20); Red Cell Distribution Width 13.7 % (11.8-14.3); White Blood Cell 5.2 10^3/uL (4.4-10.8)
[2024-08-31 20:24] LABS: Alanine Aminotransferase 15 U/L (7-40); Albumin 4.3 g/dL (3.2-4.8); Alkaline Phosphatase 91 U/L (46-116); Anion Gap 8 (5-15); Aspartate Aminotransferase 18 U/L (13-40); Blood Urea Nitrogen 18 mg/dL (9-23); Calcium 9.1 mg/dL (8.7-10.4); Carbon Dioxide 23 mmol/L (20-31); Potassium 4.3 mmol/L (3.5-5.1); Sodium 142 mmol/L (136-145); Total Protein 6.5 g/dL (5.7-8.2)
[2024-08-31 20:27] LABS: Bilirubin, Total 0.2 mg/dL (0.2-1.0); Chloride 111 mmol/L (98-107); Glucose 116 mg/dL (74-106)
[2024-08-31] MEDS: IOHEXOL 300 MG/ML 100ML BOTTLE IJ ONE (21:16)
--- NOTE | 2024-08-31 21:55 | DVH ---
Exam: CT CT AB PEL WITH IV CON ONLY History: abdominal pain COMPARISON: May 11, 2024 Technique: Multidetector spiral CT of the abdomen and pelvis was performed from lung bases to pubic s ymphysis. Intravenous contrast was administered during this examination. Portal venous imaging was obtained. Axial, coronal and sagittal multiplanar reformats were performed by the technologist on a separate workstation. Radiation Dose : 1. Abdomen/Pelvis: CTDIvol 9.27mGy, DLP 519.78 mGy*cm. CONTRAST: Type of contrast: Omnipaque 350 Contrast injected: 100 ml Findings: Lung Bases: No acute or significant lung base finding. Normal heart size. No pleural or pericardial effusion. Bibasilar atelectasis/scarring Liver: The liver is normal in size. No focal lesions. Normal hepatic vascular enhancement. Diffuse s teatosis. Gallbladder and Biliary Tree: Cholelithiasis noted without secondary findings of cholecystitis or lin iary obstruction. Spleen: Unremarkable Pancreas: The pancreas is normal in appearance without focal lesions or abnormal enhancement. Adrenal Glands: Unremarkable Kidneys: No hydronephrosis. Bladder: Unremarkable Bowel: The stomach is grossly normal in appearance. Small bowel and colon are normal in caliber and d istribution. The appendix is not visualized; however, no secondary findings of acute appendicitis id entified. Moderate to large colonic stool burden Ascites: Absent Lymphadenopathy: No mesenteric, retroperitoneal or periportal lymphadenopathy. Abdominal Wall and Mesentery: Unremarkable. Vasculature: The visualized abdominal aorta is normal in size and caliber. Abdominal and pelvic vess els demonstrate normal enhancement. Pelvic Organs: Unremarkable Musculoskeletal: No aggressive focal bony lesions, acute fractures or dislocation. IMPRESSION: 1. No acute abdominal or pelvic finding. 2. Moderate to large colonic stool burden Radiation optimization: All CT scans at this facility use at least one of these dose optimization radha hniques: automated exposure control mA and/or kV adjustment per patient size (includes targeted exam s where dose is matched to clinical indication) or iterative reconstruction.
[2024-08-31] MEDS ORDERED: ONDANSETRON HCL 4 MG/2 ML VIAL IV ONE (23:00)
[2024-08-31] MEDS ORDERED: SODIUM CHLORIDE 0.9% 1,000 ML IV ONE (23:00)
[2024-08-31] MEDS ORDERED: PANTOPRAZOLE 40 MG/10 ML VIAL INJ IV ONE (23:00)
--- NOTE | 2024-08-31 23:25 | ED.PDOC ---
GI ASSESSMENT HPI Comments 44-year-old female with PMHx Chronic Pancreatitis, Anxiety presents with a chief complaint of abdominal pain with constipation. Patient states that she has chronic pancreatitis and is requesting pain medication. Patient became agitated after speaking with physician and requested to have her IV removed so that she may elope from the department. Patient was seen leaving the ER with steady gait. Chief Complaint: Abdominal Pain Time Seen by MD: 23:08 Primary Care Provider: [facility] Reviewed Notes: Medications, Allergies Allergies: Coded Allergies: NO KNOWN ALLERGIES (Unverified , 03/10/16) Home Meds Active Scripts Nitrofurantoin Monohydrate Mac (Macrobid) 100 Mg Cap, 100 MG PO BID for 7 Days, #14 CAP Prov:LUPE BROWNE 05/11/24 Cyanocobalamin (B12) 1,000 Mcg Cap, 1000 MCG PO DAILY for 30 Days, #30 CAP Prov:JAQUELIN BLANCHARD 02/18/24 Gabapentin (Gabapentin) 100 Mg Cap, 100 MG PO BID for 30 Days, #60 CAP Prov:JAQUELIN BLANCHARD 02/18/24 Ergocalciferol (VITAMIN D 45987 UNIT) 50,000 [place], [address] UNIT PO Q7D for 90 Days, #12 CAP Prov:JAQUELIN BLANCHARD 02/18/24 Cephalexin (KEFLEX CAPSULE) 250 Mg Cp, 2 CAP PO BID for 4 Days, #28 CAP Prov:JAQUELIN BLANCHARD 02/18/24 Azithromycin (Zithromax Z-Rafiq) 250 Mg Tab, 250 MG PO DAILY for 4 Days, #4 TAB Prov:JAQUELIN BLANCHARD 02/18/24 Tramadol Hcl (Tramadol Hcl) 50 Mg Tab, 50 MG PO Q8HP PRN for 5 Days, #15 TAB Prov:YOANA LANDA MD 04/07/23 Acetaminophen (Acetaminophen) 500 Mg Tab, 500 MG PO Q4HP PRN, #30 TAB Prov:WENCESLAO MCCLOUD PAC 04/03/23 Information Source: Patient Mode of Arrival: Ambulatory Timing: Days Duration: Intermittent Prehospital treatment: None Quality: Aching Vomitus: None Stool: Impaction Severity: Moderate Recent: None Recent Hx of: None Pain Location: Epigastric Associated sign and symptoms: Constipation, Abdominal Pain Past Medical History PAST MEDICAL HISTORY: Anxiety, HTN 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 TELEVISION INSTALLER HELPER History Family History Family History: Unknown Social History Smoker: Non-Smoker Alcohol: Sober Drugs: Denies Drug Use Lives In: Home Constitutional: denies: chills, diaphoresis, fatigue, fever, malaise, sweats, weakness, others EENTM: denies: blurred vision, double vision, ear bleeding, ear discharge, ear drainage, ear pain, ear ringing, eye pain, eye redness, hearing loss, mouth pain, mouth swelling, nasal discharge, nose bleeding, nose congestion, nose kiko n, photophobia, tearing, throat pain, throat swelling, voice changes, others Respiratory: denies: cough, hemoptysis, orthopnea, SOB at rest, shortness of breath, SOB with excertion, stridor, wheezing, others Cardiovascular: denies: chest pain, dizzy spells, diaphoresis, Dyspnea on exertion, edema, irregular heart beat, left arm pain, lightheadedness, palpitations, PND, syncope, others Gastrointestinal: reports: abdominal pain, constipated; denies: abdomen distended, blood streaked bowels, diarrhea, dysphagia, difficulty swallowing, hematemesis, melena, nausea, poor appetite, poor fluid intake, rectal bleeding, rectal pain, vomiting, others Genitourinary: denies: abnormal vagina bleeding, burning, dyspareunia, dysuria, flank pain, frequency, hematuria, incontinence, pain, , vagina discharge, urgency, others Neurological: denies: dizziness, fainting, headache, left sided numbness, left sided weakness, numbness, paresthesia, pre-existing deficit, right sided numbness, right sided weakness, seizure, speech problems, tingling, tremors, weakness, others Musculoskeletal: denies: back pain, gout, joint pain, joint swelling, muscle pain, muscle stiffness, neck pain, others Integumetry: denies: bruises, change in color, change in hair/nails, dryness, laceration, lesions, lumps, rash, wounds, others Allergic/Immunocompromised: denies: Difficulty Healing, Frequent Infections, Hives, Itching, others Hematologic/Lymphatic: denies: anemia, blood clots, easy bleeding, easy bruising, swollen glands, others Endocrine: denies: excessive hunger, excessive sweating, excessive thirst, excessive urination, flushing, intolerance to cold, intolerance to heat, unexplained weight gain, unexplained weight loss, others Psychiatric: denies: anxiety, bipolar disorder, depression, hopeless, panic disorder, schizophrenia, sleepless, suicidal, others All Other Systems: Reviewed and Negative Physical Exam General Appearance: No Apparent Distress, Normal HEENT: Normal ENT Inspection, Pharynx Normal, TMs Normal Neck: Full Range of Motion, Non-Tender, Normal, Normal Inspection Respiratory: Chest Non-Tender, Lungs Clear, No Accessory Muscle Use, No Respiratory Distress, Normal Breath Sounds Cardiovascular: No Edema, No JVD, No Murmur, No Gallop, Normal Peripheral Pulses, Regular Rate/Rhythm Breast Exam: Deferred Gastrointestinal: No Organomegaly, Non Tender, No Pulsatile Mass, Normal Bowel Sounds, Soft Genitalia: Deferred Pelvic: Deferred Rectal: Deferred Extremities: No calf tenderness, Normal capillary refill, Normal inspection, Normal range of motion, Non-tender, No pedal edema Musculoskeletal : Apperance: Normal Neurologic: Alert, stemhole borer II-XII nml as Tested, No Motor Deficits, Normal Affect, Normal Mood, No Sensory Deficits Cerebellar Function: Normal Reflexes: Normal Skin: Dry, Normal Color, Warm Lymphatic: No Adenopathy Was a procedure done? Was a procedure done?: No GI differential Dx Differential Diagnosis: Appendicitis, Hernia, Hepatitis, Inflammatory BD, UTI, Urolithiasis, Dehydration, Electrolyte Imbalance, Food Poisoning, Bacterial X-Ray, Labs, Meds, VS Vital Signs Date Time Temp Pulse Resp B/P (MAP) Pulse Ox O2 Delivery O2 Flow Rate FiO2 08/31/24 18:23 98.4 75 20 135/86 (102) 93 98.4 08/31/24 18:23 75 20 93 Room Air 08/31/24 18:07 98.4 75 20 135/86 (102) 93 98.4 Lab Test 08/31/24 23:10 08/31/24 19:47 Range/Units Urine Color Light-yellow Yellow Urine Clarity Turbid H Clear Urine pH 6.0 5.0-9.0 Urine Specific [place] > 1.050 H 1.001-1.035 Urine Protein Negative Negative Urine Ketones Negative Negative Urine Blood Negative Negative /uL Urine Nitrite Negative Negative Urine Bilirubin Negative Negative Urine Urobilinogen Normal Negative mg/dL Urine Leukocyte Esterase Negative Negative /uL Urine RBC 2 0 - 4 /hpf Urine Microscopic WBC 5 0-5 /HPF Urine Squamous Epithelial Cells Many <5 /hpf Urine Bacteria Few H None Seen /hpf Urine Mucus Few None Seen Urine Glucose Normal Normal mg/dL White Blood Count 5.2 4.4-10.8 10^3/uL Red Blood Count 4.28 4.0-5.20 10^6/uL Hemoglobin 12.6 12.2-16.2 g/dL Hematocrit 38.0 36.0-46.0 % Mean Corpuscular Volume 88.7 80.0-100.0 fL Mean Corpuscular Hemoglobin 29.3 28.0-32.0 pg Mean Corpuscular Hemoglobin Concent 33.1 32.0-36.0 g/dL Red Cell Distribution Width 13.7 11.8-14.3 % Platelet Count 131 L 140-450 10^3/uL Mean Platelet Volume 9.3 6.9-10.8 fL Neutrophils (%) (Auto) 60.9 37.0-80.0 % Lymphocytes (%) (Auto) 26.1 10.0-50.0 % Monocytes (%) (Auto) 9.3 0.0-12.0 % Eosinophils (%) (Auto) 3.1 0.0-7.0 % Basophils (%) (Auto) 0.6 0.0-2.0 % Neutrophils # (Auto) 3.2 1.6-8.6 10 ^3/uL Lymphocytes # (Auto) 1.4 0.4-5.4 10 ^3/uL Monocytes # (Auto) 0.5 0-1.3 10 ^3/uL Eosinophils # (Auto) 0.2 0-0.8 10 ^3/uL Basophils # (Auto) 0 0-0.2 10 ^3/uL Nucleated Red Blood Cells 0.0 % Sodium Level 142 136-145 mmol/L Potassium Level 4.3 3.5-5.1 mmol/L Chloride Level 111 H 98-107 mmol/L Carbon Dioxide Level 23 20-31 mmol/L Anion Gap 8 5-15 Blood Urea Nitrogen 18 9-23 mg/dL Creatinine 1.38 H 0.550-1.02 mg/dL Glomerular Filtration Rate Calc 49 >90 mL/min BUN/Creatinine Ratio 13.0 10.0-20.0 Serum Glucose 116 H 74-106 mg/dL Lactic Acid Level 0.6 0.4-2.0 mmol/L Calcium Level 9.1 8.7-10.4 mg/dL Total Bilirubin 0.2 0.2-1.0 mg/dL Aspartate Amino Transferase (AST) 18 13-40 U/L Alanine Aminotransferase (ALT) 15 7-40 U/L Alkaline Phosphatase 91 46-116 U/L Total Protein 6.5 5.7-8.2 g/dL Albumin 4.3 3.2-4.8 g/dL Time of 1ST Reevaluation: 23:52 Reevaluation 1ST: Unchanged Patient Education/Counseling: Diagnosis, Treatment Family Education/Counseling: No Family Present Departure 1 Departure Time of Disposition: 05:18 (When patient hurt I was going to call her other doctors to come up with a treatment plan, patient decided she was going to leave the emergency room.) Impression: Primary Impression: Abdominal pain Qualified Codes: R10.84 - Generalized abdominal pain Additional Impression: At risk for elopement from emergency department Disposition: 07 LEFT AWOL/ELOPED Condition: Fair Discharged With: Self Critical Care Note Critical Care Time?: No Stability Stability form required: No Heart Score Heart Score: Heart Score Response (Comments) Value History N/A 0 EKG N/A 0 Age N/A 0 Risk Factors N/A 0 Troponin N/A 0 Total 0 I personally scribed for CONNOR ESCALANTE MD ([email or web address]) on 08/31/24 at 23:25. Electronically submitted by Fahad Hernandez ([email or web address]). CONNOR ESCALANTE MD Aug 31, 2024 23:25
[2024-08-31 23:30] LABS: Urine Bacteria FEW /hpf (None Seen); Urine Blood Negative /uL (Negative); Urine Clarity Turbid (Clear); Urine Color Light-Yellow (Yellow); Urine Mucus FEW (None Seen); Urine Protein, UAD Negative (Negative); Urine Squamous Epithelial Cell MANY /hpf (<5); Urine Urobilinogen Normal (Negative); Urine WBC 5 /HPF (0-5)
[2024-08-31 23:31] LABS: Urine Specific Gravity > 1.050 (1.001-1.035)
== END 2024-08-31 23:22 | disposition left against medical advice (07) ==
LOC: ER 17:47
DX: R10.9 Unspecified abdominal pain (principal); R45.1 Restlessness and agitation; F41.9 Anxiety disorder, unspecified; I10 Essential (primary) hypertension; Z98.890 Other specified postprocedural states; Z79.899 Other long term (current) drug therapy
CPT/HCPCS: 36415; 74177; 80053; 81001; 83605; 85025; 99285; Q9967

== ENCOUNTER 2024-10-17 22:27 | Emergency (ER) | payer MEDICARE, OTHER ==
[~2024-10-17] VITALS: Ht 165.1 cm; Wt 71.8 kg
[2024-10-17 22:56] VITALS: BP 30/87; PULSE 86; RESP 18; TEMP 98.4; O2SAT 96
--- NOTE | 2024-10-17 23:07 | ED.PDOC ---
History of Present Illness HPI Comments 44-year-old female patient with past medical history of COVID-19 infection complicated by acute hypoxemic respiratory failure and mechanical ventilation with a tracheostomy at [facility] in 2020, after which she was to relearn everything. chronic pancreatitis status post pancreatic stent, questionable c irrhosis, chronic kidney disease, she presented to the emergency department with a chief complaint of repeated falls over the past 2 days. Patient states she fell once yesterday, and fell twice the other day. Patient states like she is about to pass out at any time. Noted also a right hand weakness past 2 days Chief Complaint: Syncope Time Seen by MD: 23:07 Primary Care Provider: [facility] Reviewed Notes: Nurses Notes Allergies: Coded Allergies: NO KNOWN ALLERGIES (Unverified , 03/10/16) Home Meds Active Scripts Elastic Bandages & Supports (Hong Wrist Brace) Mis, UNIT XX DAILY, #1 3 Refills Prov:VICENTA CARMONA MD 10/18/24 Nitrofurantoin Monohydrate Mac (Macrobid) 100 Mg Cap, 100 MG PO BID for 7 Days, #14 CAP Prov:LUPE BROWNE 05/11/24 Cyanocobalamin (B12) 1,000 Mcg Cap, 1000 MCG PO DAILY for 30 Days, #30 CAP Prov:JAQUELIN BLANCHARD 02/18/24 Gabapentin (Gabapentin) 100 Mg Cap, 100 MG PO BID for 30 Days, #60 CAP Prov:JAQUELIN BLANCHARD 02/18/24 Ergocalciferol (VITAMIN D 19766 UNIT) 50,000 [place], [address] UNIT PO Q7D for 90 Days, #12 CAP Prov:JAQUELIN BLANCHARD 02/18/24 Cephalexin (KEFLEX CAPSULE) 250 Mg Cp, 2 CAP PO BID for 4 Days, #28 CAP Prov:JAQUELIN BLANCHARD 02/18/24 Azithromycin (Zithromax Z-Rafiq) 250 Mg Tab, 250 MG PO DAILY for 4 Days, #4 TAB Prov:JAQUELIN BLANCHARD 02/18/24 Tramadol Hcl (Tramadol Hcl) 50 Mg Tab, 50 MG PO Q8HP PRN for 5 Days, #15 TAB Prov:YOANA LANDA MD 04/07/23 Acetaminophen (Acetaminophen) 500 Mg Tab, 500 MG PO Q4HP PRN, #30 TAB Prov:WENCESLAO MCCLOUD PAC 04/03/23 Information Source: Patient Mode of Arrival: Ambulatory Severity: Moderate Timing: Days Duration: Intermittent Past Medical History PAST MEDICAL HISTORY: Anxiety, HTN, Liver Past Medical History (Other): Pancreatitis, alcoholic liver cirrhosis, psoriasis 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 STONE POLISHER HAND History Family History Family History: Unknown Social History Smoker: Non-Smoker Alcohol: Sober Drugs: Denies Drug Use Lives In: Home Constitutional: denies: chills, diaphoresis, fatigue, fever, malaise, sweats, weakness, others EENTM: denies: blurred vision, double vision, ear bleeding, ear discharge, ear drainage, ear pain, ear ringing, eye pain, eye redness, hearing loss, mouth pain, mouth swelling, nasal discharge, nose bleeding, nose congestion, nose pain, photophobia, tearing, throat pain, throat swelling, voice changes, others Respiratory: denies: cough, hemoptysis, orthopnea, SOB at rest, shortness of breath, SOB with excertion, stridor, wheezing, others Cardiovascular: denies: chest pain, dizzy spells, diaphoresis, Dyspnea on exertion, edema, irregular heart beat, left arm pain, lightheadedness, palpitations, PND, syncope, others Gastrointestinal: denies: abdomen distended, abdominal pain, blood streaked bowels, constipated, diarrhea, dysphagia, difficulty swallowing, hematemesis, melena, nausea, poor appetite, poor fluid intake, rectal bleeding, rectal pain, vomiting, others Genitourinary: denies: abnormal vagina bleeding, burning, dyspareunia, dysuria, flank pain, frequency, hematuria, incontinence, pain, , vagina discharge, urgency, others Neurological: reports: fainting, right sided weakness (Right hand), weakness; denies: dizziness, headache, left sided numbness, left sided weakness, numbness, paresthesia, pre-existing deficit, right sided numbness, seizure, speech problems, tingling, tremors, others Musculoskeletal: denies: back pain, gout, joint pain, joint swelling, muscle pain, muscle stiffness, neck pain, others Integumetry: denies: bruises, change in color, change in hair/nails, dryness, laceration, lesions, lumps, rash, wounds, others Allergic/Immunocompromised: denies: Difficulty Healing, Frequent Infections, Hives, Itching, others Hematologic/Lymphatic: denies: anemia, blood clots, easy bleeding, easy bruising, swollen glands, others Endocrine: denies: excessive hunger, excessive sweating, excessive thirst, excessive urination, flushing, intolerance to cold, intolerance to heat, unexplained weight gain, unexplained weight loss, others Psychiatric: denies: anxiety, bipolar disorder, depression, hopeless, panic disorder, schizophrenia, sleepless, suicidal, others Physical Exam General Appearance: No Apparent Distress, Normal HEENT: Normal ENT Inspection, Pharynx Normal, TMs Normal Neck: Full Range of Motion, Non-Tender, Normal, Normal Inspection Respiratory: Chest Non-Tender, Lungs Clear, No Accessory Muscle Use, No Respiratory Distress, Normal Breath Sounds Cardiovascular: No Edema, No JVD, No Murmur, No Gallop, Normal Peripheral Pulses, Regular Rate/Rhythm Breast Exam: Deferred Gastrointestinal: No Organomegaly, Non Tender, No Pulsatile Mass, Normal Bowel Sounds, Soft Genitalia: Deferred Pelvic: Deferred Rectal: Deferred Extremities: No calf tenderness, Normal capillary refill, Normal inspection, Normal range of motion, Non-tender, No pedal edema Musculoskeletal : Apperance: Normal Neurologic: Alert, cooler servicer II-XII nml as Tested, No Motor Deficits, Normal Affect, Normal Mood, No Sensory Deficits Cerebellar Function: Normal Reflexes: Normal Skin: Dry, Normal Color, Warm Lymphatic: No Adenopathy Was a procedure done? Was a procedure done?: No Differential Dx Considerations may include: Anemia, electrolyte imbalance, syncope, confusion X-Ray, Labs, Meds, VS Vital Signs Date Time Temp Pulse Resp B/P (MAP) Pulse Ox O2 Delivery O2 Flow Rate FiO2 10/17/24 22:56 98.4 86 18 30/87 (68) 96 98.4 Lab Test 10/17/24 23:12 Range/Units White Blood Count 4.8 4.4-10.8 10^3/uL Red Blood Count 4.15 4.0-5.20 10^6/uL Hemoglobin 12.3 12.2-16.2 g/dL Hematocrit 37.3 36.0-46.0 % Mean Corpuscular Volume 89.7 80.0-100.0 fL Mean Corpuscular Hemoglobin 29.6 28.0-32.0 pg Mean Corpuscular Hemoglobin Concent 33.0 32.0-36.0 g/dL Red Cell Distribution Width 15.0 H 11.8-14.3 % Platelet Count 123 L 140-450 10^3/uL Mean Platelet Volume 9.2 6.9-10.8 fL Neutrophils (%) (Auto) 62.5 37.0-80.0 % Lymphocytes (%) (Auto) 22.8 10.0-50.0 % Monocytes (%) (Auto) 10.6 0.0-12.0 % Eosinophils (%) (Auto) 3.3 0.0-7.0 % Basophils (%) (Auto) 0.8 0.0-2.0 % Neutrophils # (Auto) 3.0 1.6-8.6 10 ^3/uL Lymphocytes # (Auto) 1.1 0.4-5.4 10 ^3/uL Monocytes # (Auto) 0.5 0-1.3 10 ^3/uL Eosinophils # (Auto) 0.2 0-0.8 10 ^3/uL Basophils # (Auto) 0 0-0.2 10 ^3/uL Nucleated Red Blood Cells 0.1 % Sodium Level 142 136-145 mmol/L Potassium Level 3.9 3.5-5.1 mmol/L Chloride Level 108 H 98-107 mmol/L Carbon Dioxide Level 26 20-31 mmol/L Anion Gap 8 5-15 Blood Urea Nitrogen 15 9-23 mg/dL Creatinine 1.40 H 0.550-1.02 mg/dL Glomerular Filtration Rate Calc 48 >90 mL/min BUN/Creatinine Ratio 10.7 10.0-20.0 Serum Glucose 84 74-106 mg/dL Calcium Level 9.7 8.7-10.4 mg/dL Magnesium Level 1.9 1.6-2.6 mg/dL Total Bilirubin 0.4 0.2-1.0 mg/dL Aspartate Amino Transferase (AST) 30 13-40 U/L Alanine Aminotransferase (ALT) 19 7-40 U/L Alkaline Phosphatase 84 46-116 U/L Total Protein 7.0 5.7-8.2 g/dL Albumin 4.5 3.2-4.8 g/dL Plasma/Serum Blood Alcohol < 3.0 <10 mg/dL EXAM: CT HEAD WITHOUT CONTRAST INDICATION: syncope, right hand weakness TECHNIQUE: CT of the head without intravenous contrast. Radiation Dose : 1. Head: CT Dose: CTDI volume is 57.01 mGy. Dose-length product is 1123.41 mGy*cm The dose indicators for CT are the volume Computed Tomography (CT) Dose Index (CTDIvol) and the Dose Length Product (DLP), and are measured in units of mGy and mGy-cm, respectively. These indicators are not patient dose, but values generated from the CT scanner acquisition factors. The report includes radiation exposure data for exposures received during this examination. COMPARISON: CT HEAD WITHOUT CONTRAST on DOS: 02/16/24 FINDINGS: There is no evidence of acute intracranial hemorrhage, extra-axial collection, mass effect, midline shift, herniation or hydrocephalus. The ventricles, sulci and cisterns are age appropriate. The orr-white differentiation is intact. The visualized paranasal sinuses and mastoid air cells are clear. The surrounding soft tissues and osseous structures are unremarkable. IMPRESSION: 1. No acute intracranial abnormality. Time of 1ST Reevaluation: 23:05 Reevaluation 1ST: Unchanged Patient Education/Counseling: Diagnosis, Treatment Family Education/Counseling: No Family Present Departure 1 Departure Time of Disposition: 01:00 Impression: Primary Impression: Acute radial nerve palsy of right upper extremity Additional Impression: Falls Disposition: 01 HOME / SELF CARE / HOMELESS Condition: Stable e-Prescriptions Elastic Bandages & Supports (Hong Wrist Brace) Mis UNIT XX DAILY, #1 3 Refills Prov: VICENTA CARMONA MD 10/18/24 Discharged With: Self Critical Care Note Critical Care Time?: No Stability Stability form required: No Heart Score Heart Score: Heart Score Response (Comments) Value History N/A 0 EKG N/A 0 Age N/A 0 Risk Factors N/A 0 Troponin N/A 0 Total 0 I personally scribed for VICENTA CARMONA MD ([email or web address]) on 10/17/24 at 23:07. Electronically submitted by Joselo San ([email or web address]). I personally scribed for VICENTA CARMONA MD ([email or web address]) on 10/18/24 at 00:48. Electronically submitted by Joselo San ([email or web address]). VICENTA CARMONA MD Oct 17, 2024 23:07
[2024-10-17 23:23] LABS: Basophils # (auto) 0 10 ^3/uL (0-0.2); Basophils % (auto) 0.8 % (0.0-2.0); Eosinophils # (auto) 0.2 10 ^3/uL (0-0.8); Eosinophils % (auto) 3.3 % (0.0-7.0); Hematocrit 37.3 % (36.0-46.0); Hemoglobin 12.3 g/dL (12.2-16.2); Lymphocytes # (auto) 1.1 10 ^3/uL (0.4-5.4); Lymphocytes % (auto) 22.8 % (10.0-50.0); Mean Corpuscular Hemoglobin 29.6 pg (28.0-32.0); Mean Corpuscular Volume 89.7 fL (80.0-100.0); Monocytes # (auto) 0.5 10 ^3/uL (0-1.3); Monocytes % (auto) 10.6 % (0.0-12.0); Neutrophils % (auto) 62.5 % (37.0-80.0); Nucleated Red Blood Cells % 0.1 %; Platelet Count (auto) 123 10^3/uL (140-450); Red Blood Cells 4.15 10^6/uL (4.0-5.20); White Blood Cell 4.8 10^3/uL (4.4-10.8)
[2024-10-17 23:45] LABS: Alanine Aminotransferase 19 U/L (7-40); Albumin 4.5 g/dL (3.2-4.8); Alkaline Phosphatase 84 U/L (46-116); Anion Gap 8 (5-15); Aspartate Aminotransferase 30 U/L (13-40); BUN/Creatinine Ratio 10.7 (10.0-20.0); Bilirubin, Total 0.4 mg/dL (0.2-1.0); Blood Urea Nitrogen 15 mg/dL (9-23); Calcium 9.7 mg/dL (8.7-10.4); Carbon Dioxide 26 mmol/L (20-31); Glucose 84 mg/dL (74-106); Magnesium 1.9 mg/dL (1.6-2.6); Potassium 3.9 mmol/L (3.5-5.1); Sodium 142 mmol/L (136-145)
[2024-10-18] LABS: Chloride 108 mmol/L (98-107)
[2024-10-18 00:01] LABS: Blood Alcohol < 3.0 mg/dL (<10)
--- NOTE | 2024-10-18 00:01 | DVH ---
EXAM: CT HEAD WITHOUT CONTRAST INDICATION: syncope, right hand weakness TECHNIQUE: CT of the head without intravenous contrast. Radiation Dose : 1. Head: CT Dose: CTDI volume is 57.01 mGy. Dose-length product is 1123.41 mGy*cm The dose indicators for CT are the volume Computed Tomography (CT) Dose Index (CTDIvol) and the Dose Length Product (DLP), and are measured in units of mGy and mGy-cm, respectively. These indicators are not patient dose, but values generated from the CT scanner acquisition factors. The report includes radiation exposure data for exposures received during this examination. COMPARISON: CT HEAD WITHOUT CONTRAST on DOS: 02/16/24 FINDINGS: There is no evidence of acute intracranial hemorrhage, extra-axial collection, mass effect, midline s hift, herniation or hydrocephalus. The ventricles, sulci and cisterns are age appropriate. The orr-white differentiation is intact. The visualized paranasal sinuses and mastoid air cells are clear. The surrounding soft tissues and osseous structures are unremarkable. IMPRESSION: 1. No acute intracranial abnormality. Radiation optimization: All CT scans at this facility use at least one of these dose optimization radha hniques: automated exposure control mA and/or kV adjustment per patient size (includes targeted exam s where dose is matched to clinical indication) or iterative reconstruction.
[2024-10-18] MEDS ORDERED: [UNRECOGNIZED DRUG - CODE] XX (01:05)
== END 2024-10-18 01:06 | disposition home or self-care (01) ==
LOC: ER 22:27
DX: G56.31 Lesion of radial nerve, right upper limb (principal); I10 Essential (primary) hypertension; F41.9 Anxiety disorder, unspecified; Z79.899 Other long term (current) drug therapy; Z98.890 Other specified postprocedural states
CPT/HCPCS: 36415; 70450; 80053; 80320; 83735; 85025

== ENCOUNTER 2024-11-02 19:32 | Emergency (ER) | payer MEDICARE, OTHER ==
[~2024-11-02] VITALS: Ht 165.1 cm; Wt 66.6 kg
[~2024-11-02 19:32] MED LIST changes: +[UNRECOGNIZED DRUG - CODE] XX
[2024-11-02 21:30] LABS: Alanine Aminotransferase 20 U/L (7-40); Albumin 4.6 g/dL (3.2-4.8); Alkaline Phosphatase 70 U/L (46-116); Anion Gap 8 (5-15); Aspartate Aminotransferase 28 U/L (<34); BUN/Creatinine Ratio 11.3 (10.0-20.0); Blood Urea Nitrogen 16 mg/dL (9-23); Calcium 9.1 mg/dL (8.7-10.4); Carbon Dioxide 27 mmol/L (20-31); Chloride 102 mmol/L (98-107); Lipase 21 U/L (12-53); Potassium 4.9 mmol/L (3.5-5.1); Sodium 137 mmol/L (136-145); Total Protein 7.2 g/dL (5.7-8.2)
--- NOTE | 2024-11-02 21:33 | DVH ---
CT SCAN ABDOMEN AND PELVIS WITHOUT CONTRAST CLINICAL HISTORY: abd pain TECHNIQUE: Helical axial images are obtained from the lung bases through the pelvis without oral cont rast. No intravenous contrast was administered. Coronal and sagittal reformatted images were generate d from thin section reconstructions. One or more of the following radiation dose reduction techniques were used for this examination: automated exposure control, adjustment of the mA and/or kV according to patient size, use of iterative reconstruction technique. COMPARISON: CT CT AB PEL WO CON-NO ORAL OR IV on DOS: 05/11/24, CT CT AB PEL WO CON-NO ORAL OR IV on DOS: 02/17/24, CT CT AB PEL WO CON-NO ORAL OR IV on DOS: 04/03/23 FINDINGS: LOWER THORAX: Scattered scarring/reticulation again noted within the imaged lung bases. ABDOMEN AND PELVIS: Evaluation of visceral and vascular structures is limited due to lack of contrast administration. As visualized, the unenhanced liver and adrenals appears grossly unremarkable. Spleen is again mildly enlarged. Small, dependent gallbladder calculi/calcification again noted. No other CT evidence of c holecystitis at this time. Relatively stable appearing cyst in the pancreatic tail measuring approximately 2.2 cm in diameter. N o peripancreatic inflammatory changes noted at this time. No hydroureteronephrosis or sizable, obstructing urinary tract calculi identified. Scattered aortoiliac atherosclerotic calcifications. No evidence of abdominal aortic aneurysm. No evidence of small-bowel obstruction. Normal caliber appendix. Moderate to large volume stool throu ghout the colon rectum. No free intraperitoneal air or fluid identified. No sizable bladder calculus. No destructive osseous lesions identified. IMPRESSION: No bowel obstruction, free intraperitoneal air/fluid or sizable inflammatory collections identified o n this noncontrast examination. Moderate to large volume colorectal stool may indicate constipation. Please correlate clinically. Other relatively chronic appearing findings as above.
[2024-11-02 21:41] LABS: Bilirubin, Total 0.3 mg/dL (0.2-1.0); Glucose 138 mg/dL (74-106)
[2024-11-02 21:47] LABS: Urine Bacteria MOD /hpf (None Seen); Urine Blood 2+ /uL (Negative); Urine Clarity Ex.Turbid (Clear); Urine Color Colorless (Yellow); Urine Protein, UAD Negative (Negative); Urine Specific Gravity 1.011 (1.001-1.035); Urine Squamous Epithelial Cell MANY /hpf (<5); Urine Urobilinogen Normal (Negative); Urine WBC 12 /HPF (0-5); Urine WBC Clumps PRESENT /hpf (None Seen); Urine pH 6.5 (5.0-9.0)
[2024-11-02 21:54] LABS: Basophils # (auto) 0 10 ^3/uL (0-0.2); Basophils % (auto) 0.3 % (0.0-2.0); Eosinophils # (auto) 0 10 ^3/uL (0-0.8); Eosinophils % (auto) 0.5 % (0.0-7.0); Hematocrit 40.7 % (36.0-46.0); Hemoglobin 13.4 g/dL (12.2-16.2); Lymphocytes # (auto) 0.7 10 ^3/uL (0.4-5.4); Lymphocytes % (auto) 10.1 % (10.0-50.0); Monocytes # (auto) 0.3 10 ^3/uL (0-1.3); Monocytes % (auto) 3.8 % (0.0-12.0); Neutrophils % (auto) 85.3 % (37.0-80.0); Platelet Count (auto) 149 10^3/uL (140-450); Red Blood Cells 4.62 10^6/uL (4.0-5.20); Red Cell Distribution Width 14.6 % (11.8-14.3)
--- NOTE | 2024-11-02 22:33 | ED.PDOC ---
GI ASSESSMENT HPI Comments 44-year-old female complaining of epigastric abdominal pain which started two days ago. Reports 9/10 pain. Reports a history of pancreatitis. States last flare-up of pancreatitis was over a year ago. Nothing makes it better, nothing makes it worse. No urinary symptoms. No fever no chills. Patient denies any alcohol use denies any eating or red meats. Chief Complaint: Abdominal Pain Time Seen by MD: 19:35 Primary Care Provider: [facility] Reviewed Notes: Nurses Notes Allergies: Coded Allergies: NO KNOWN ALLERGIES (Unverified , 03/10/16) Home Meds Active Scripts Elastic Bandages & Supports (Hong Wrist Brace) Mis, UNIT XX DAILY, #1 3 Refills Prov:VICENTA CARMONA MD 10/18/24 Nitrofurantoin Monohydrate Mac (Macrobid) 100 Mg Cap, 100 MG PO BID for 7 Days, #14 CAP Prov:LUPE BROWNE [facility] SERVICES MANAGER 05/11/24 Cyanocobalamin (B12) 1,000 Mcg Cap, 1000 MCG PO DAILY for 30 Days, #30 CAP Prov:JAQUELIN BLANCHARD RESIDENT 02/18/24 Gabapentin (Gabapentin) 100 Mg Cap, 100 MG PO BID for 30 Days, #60 CAP Prov:JAQUELIN BLANCHARD 02/18/24 Ergocalciferol (VITAMIN D 23287 UNIT) 50,000 [place], [address] UNIT PO Q7D for 90 Days, #12 CAP Prov:JAQUELIN BLANCHARD 02/18/24 Cephalexin (KEFLEX CAPSULE) 250 Mg Cp, 2 CAP PO BID for 4 Days, #28 CAP Prov:JAQUELIN BLANCHARD 02/18/24 Azithromycin (Zithromax Z-Rafiq) 250 Mg Tab, 250 MG PO DAILY for 4 Days, #4 TAB Prov:JAQUELIN BLANCHARD 02/18/24 Tramadol Hcl (Tramadol Hcl) 50 Mg Tab, 50 MG PO Q8HP PRN for 5 Days, #15 TAB Prov:YOANA LANDA MD 04/07/23 Acetaminophen (Acetaminophen) 500 Mg Tab, 500 MG PO Q4HP PRN, #30 TAB Prov:WENCESLAO MCCLOUD PAC 04/03/23 Information Source: Patient Mode of Arrival: Ambulatory Past Medical History PAST MEDICAL HISTORY: Anxiety, HTN, Liver Surgical History: 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 REPAIRER History: No Pertinent JEWELRY REPAIRER History Family History Family History: Unknown Social History Smoker: Non-Smoker Alcohol: Sober Drugs: Denies Drug Use Lives In: Home Constitutional: denies: chills, diaphoresis, fatigue, fever, malaise, sweats, weakness, others EENTM: denies: blurred vision, double vision, ear bleeding, ear discharge, ear drainage, ear pain, ear ringing, eye pain, eye redness, hearing loss, mouth pain, mouth swelling, nasal discharge, nose bleeding, nose congestion, nose pain, photophobia, tearing, throat pain, throat swelling, voice changes, others Respiratory: denies: cough, hemoptysis, orthopnea, SOB at rest, shortness of breath, SOB with excertion, stridor, wheezing, others Cardiovascular: denies: chest pain, dizzy spells, diaphoresis, Dyspnea on exertion, edema, irregular heart beat, left arm pain, lightheadedness, palpitations, PND, syncope, others Gastrointestinal: reports: abdominal pain, nausea, vomiting; denies: abdomen distended, blood streaked bowels, constipated, diarrhea, dysphagia, difficulty swallowing, hematemesis, melena, poor appetite, poor fluid intake, rectal bleeding, rectal pain, others Genitourinary: denies: abnormal vagina bleeding, burning, dyspareunia, dysuria, flank pain, frequency, hematuria, incontinence, pain, , vagina discharge, urgency, others Neurological: denies: dizziness, fainting, headache, left sided numbness, left sided weakness, numbness, paresthesia, pre-existing deficit, right sided numbness, right sided weakness, seizure, speech problems, tingling, tremors, weakness, others Musculoskeletal: denies: back pain, gout, joint pain, joint swelling, muscle pain, muscle stiffness, neck pain, others Integumetry: denies: bruises, change in color, change in hair/nails, dryness, laceration, lesions, lumps, rash, wounds, others Allergic/Immunocompromised: denies: Difficulty Healing, Frequent Infections, Hives, Itching, others Hematologic/Lymphatic: denies: anemia, blood clots, easy bleeding, easy bruising, swollen glands, others Physical Exam General Appearance: Moderate Distress, Normal HEENT: Normal ENT Inspection, Pharynx Normal, TMs Normal Neck: Full Range of Motion, Non-Tender, Normal, Normal Inspection Respiratory: Chest Non-Tender, Lungs Clear, No Accessory Muscle Use, No Respiratory Distress, Normal Breath Sounds Cardiovascular: No Edema, No JVD, No Murmur, No Gallop, Normal Peripheral Pulses, Regular Rate/Rhythm Breast Exam: Deferred Gastrointestinal: Epigastric (Epigastric tenderness), No Organomegaly, No Pulsatile Mass, Normal Bowel Sounds, Soft Genitalia: Deferred Pelvic: Deferred Rectal: Deferred Extremities: No calf tenderness, Normal capillary refill, Normal inspection, Normal range of motion, Non-tender, No pedal edema Musculoskeletal : Apperance: Normal Neurologic: Alert, surface room shop optician II-XII nml as Tested, No Motor Deficits, Normal Affect, Normal Mood, No Sensory Deficits Cerebellar Function: Normal Reflexes: Normal Skin: Dry, Normal Color, Warm Lymphatic: No Adenopathy Was a procedure done? Was a procedure done?: No GI differential Dx Differential Diagnosis: Gastritis/PUD, Gastroenteritis, GI hemorrhage, Ovarian cyst/torsion, Pancreatitis, Urinary Obstruction, UTI X-Ray, Labs, Meds, VS Vital Signs Date Time Temp Pulse Resp B/P (MAP) Pulse Ox O2 Delivery O2 Flow Rate FiO2 11/02/24 19:53 97.8 83 20 136/73 (94) 97 97.8 Lab Test 11/02/24 21:00 11/02/24 20:00 Range/Units White Blood Count 7.0 4.4-10.8 10^3/uL Red Blood Count 4.62 4.0-5.20 10^6/uL Hemoglobin 13.4 12.2-16.2 g/dL Hematocrit 40.7 36.0-46.0 % Mean Corpuscular Volume 88.0 80.0-100.0 fL Mean Corpuscular Hemoglobin 29.0 28.0-32.0 pg Mean Corpuscular Hemoglobin Concent 33.0 32.0-36.0 g/dL Red Cell Distribution Width 14.6 H 11.8-14.3 % Platelet Count 149 140-450 10^3/uL Mean Platelet Volume 9.9 6.9-10.8 fL Neutrophils (%) (Auto) 85.3 H 37.0-80.0 % Lymphocytes (%) (Auto) 10.1 10.0-50.0 % Monocytes (%) (Auto) 3.8 0.0-12.0 % Eosinophils (%) (Auto) 0.5 0.0-7.0 % Basophils (%) (Auto) 0.3 0.0-2.0 % Neutrophils # (Auto) 6.0 1.6-8.6 10 ^3/uL Lymphocytes # (Auto) 0.7 0.4-5.4 10 ^3/uL Monocytes # (Auto) 0.3 0-1.3 10 ^3/uL Eosinophils # (Auto) 0 0-0.8 10 ^3/uL Basophils # (Auto) 0 0-0.2 10 ^3/uL Nucleated Red Blood Cells 0.0 % Sodium Level 137 136-145 mmol/L Potassium Level 4.9 3.5-5.1 mmol/L Chloride Level 102 98-107 mmol/L Carbon Dioxide Level 27 20-31 mmol/L Anion Gap 8 5-15 Blood Urea Nitrogen 16 9-23 mg/dL Creatinine 1.42 H 0.550-1.02 mg/dL Glomerular Filtration Rate Calc 47 >90 mL/min BUN/Creatinine Ratio 11.3 10.0-20.0 Serum Glucose 138 H 74-106 mg/dL Calcium Level 9.1 8.7-10.4 mg/dL Total Bilirubin 0.3 0.2-1.0 mg/dL Aspartate Amino Transferase (AST) 28 <34 U/L Alanine Aminotransferase (ALT) 20 7-40 U/L Alkaline Phosphatase 70 46-116 U/L Total Protein 7.2 5.7-8.2 g/dL Albumin 4.6 3.2-4.8 g/dL Lipase 21 12-53 U/L Urine Color Colorless Yellow Urine Clarity Ex.turbid Clear Urine pH 6.5 5.0-9.0 Urine Specific [place] 1.011 1.001-1.035 Urine Protein Negative Negative Urine Ketones Negative Negative Urine Blood 2+ H Negative /uL Urine Nitrite Negative Negative Urine Bilirubin Negative Negative Urine Urobilinogen Normal Negative mg/dL Urine Leukocyte Esterase 3+ Negative /uL Urine RBC 2 0 - 4 /hpf Urine WBC Clumps Present None Seen /hpf Urine Microscopic WBC 12 H 0-5 /HPF Urine Squamous Epithelial Cells Many <5 /hpf Urine Bacteria Mod H None Seen /hpf Urine Glucose Normal Normal mg/dL X-Ray, Labs, Meds, VS Comment Imaging: X-rays and CT scans were reviewed and interpreted by this provider, imaging shows no fractures and no pathological disease. Pending radiology review. Laboratory: Labs reviewed and interpreted by this provider. No significant abnormalities noted. Patient has prior medical visits reviewed. Med reconciliation performed Vital signs reviewed Time of 1ST Reevaluation: 22:32 Reevaluation 1ST: Improved Patient Education/Counseling: Diagnosis, Treatment, Need For Follow Up (Follow up with PCP in the next 2-4 days. Return to the emergency department the next 24 hours if symptoms worsen.) Family Education/Counseling: No Family Present SEPSIS Sepsis Screen Date sepsis recognized/suspect: Nov 02, 2024 Time Sepsis recognized/suspect: 1945 Recent Procedure: No On Antibiotic Therapy: No Respiratory Rate >20: No Heart Rate >90: No Temp<36 C (96.8 F) or >38.3 C: No SBP <90 or MAP <65 mmHG: No New Acute Mental Status Change: No Is the patient on CPAP, BIPAP,: No Physician Orders Ct Ab Pel Wo Con-No Oral Or Iv (11/02/24 20:37) Vital Signs Date Time Temp Pulse Resp B/P (MAP) Pulse Ox O2 Delivery O2 Flow Rate FiO2 11/02/24 19:53 97.8 83 20 136/73 (94) 97 97.8 Laboratory Tests Test 11/02/24 21:00 White Blood Count 7.0 10^3/uL (4.4-10.8) Departure 1 Departure Time of Disposition: 22:31 Impression: Primary Impression: Urinary tract infection Qualified Codes: N30.01 - Acute cystitis with hematuria Additional Impression: Gastritis Qualified Codes: K29.00 - Acute gastritis without bleeding Disposition: 01 HOME / SELF CARE / HOMELESS Condition: Fair e-Prescriptions Nitrofurantoin Monohydrate Mac (Macrobid) 100 Mg Cap 100 MG PO BID for 7 Days, #14 CAP Prov: LUPE BROWNE 11/02/24 Discharged With: Self Critical Care Note Critical Care Time?: No Stability Stability form required: No Heart Score Heart Score: Heart Score Response (Comments) Value History N/A 0 EKG N/A 0 Age N/A 0 Risk Factors N/A 0 Troponin N/A 0 Total 0 LUPE BROWNE Nov 02, 2024 22:33
[2024-11-02] MEDS: KETOROLAC TROMETH 30 MG/ML 1ML VIAL IM ONE (23:02)
[2024-11-02] MEDS: cefTRIAXone SOD 1,000 MG VL IM ONE (23:02)
[2024-11-02 23:05] VITALS: BP 136/82; PULSE 86; RESP 16; TEMP 97.9; O2SAT 96
== END 2024-11-02 23:24 | disposition home or self-care (01) ==
LOC: ER 19:32
DX: N39.0 Urinary tract infection, site not specified (principal); K29.00 Acute gastritis without bleeding; F41.9 Anxiety disorder, unspecified; I10 Essential (primary) hypertension; Z98.890 Other specified postprocedural states; Z87.19 Personal history of other diseases of the digestive system; Z79.899 Other long term (current) drug therapy
CPT/HCPCS: 36415; 74176; 80053; 81001; 83690; 85025

== ENCOUNTER 2024-11-28 21:11 | Inpatient (IN) | payer MEDICARE, OTHER ==
[~2024-11-28] VITALS: Ht 165.1 cm; Wt 82.3 kg
[2024-11-28 22:02] LABS: Hematocrit 38.0 % (36.0-46.0); Hemoglobin 12.3 g/dL (12.2-16.2); Mean Corpuscular Hemoglobin 28.6 pg (28.0-32.0); Mean Corpuscular Volume 88.8 fL (80.0-100.0); Nucleated Red Blood Cells % 0.0 %
[2024-11-28 22:17] LABS: Alanine Aminotransferase 17 U/L (7-40); Albumin 4.1 g/dL (3.2-4.8); Alkaline Phosphatase 68 U/L (46-116); Anion Gap 4 (5-15); BUN/Creatinine Ratio 14.6 (10.0-20.0); Blood Urea Nitrogen 18 mg/dL (9-23); Calcium 9.2 mg/dL (8.7-10.4); Carbon Dioxide 28 mmol/L (20-31); Glucose 95 mg/dL (74-106); INR 0.97 (0.9-1.15); Partial Thromboplastin Time 28.2 SEC (24.5-34.5); Potassium 4.9 mmol/L (3.5-5.1); Prothrombin Time 10.3 sec (9.3-11.8); Sodium 140 mmol/L (136-145); Total Protein 6.5 g/dL (5.7-8.2)
[2024-11-28 22:19] LABS: Chloride 108 mmol/L (98-107)
[2024-11-28 22:32] LABS: Bilirubin, Total < 0.2 mg/dL (0.2-1.0)
--- NOTE | 2024-11-28 23:19 | ED.PDOC ---
History of Present Illness HPI Comments 44 y/o F presents with c/c shortness of breath, wheezing, cough, chest and bilateral arm pain. Patient endorses on having respiratory symptoms, due to a chronic pneumonia infection, for over the past year but reports on symptoms getting, progressively, worse along with additional onset of pain symptoms over the past 2x weeks. Patient denies having any fever, chills, nausea, vomiting, or further associated symptoms. Chief Complaint: Shortness of Breath Time Seen by MD: 21:30 Primary Care Provider: [facility] Reviewed Notes: Nurses Notes, Medications, Allergies Allergies: Coded Allergies: NO KNOWN ALLERGIES (Unverified , 03/10/16) Home Meds Active Scripts Nitrofurantoin Monohydrate Mac (Macrobid) 100 Mg Cap, 100 MG PO BID for 7 Days, #14 CAP Prov:LUPE BROWNEP 11/02/24 Elastic Bandages & Supports (Hong Wrist Brace) Mis, UNIT XX DAILY, #1 3 Refills Prov:VICENTA CARMONA MD 10/18/24 Nitrofurantoin Monohydrate Mac (Macrobid) 100 Mg Cap, 100 MG PO BID for 7 Days, #14 CAP Prov:LUPE BROWNE 05/11/24 Cyanocobalamin (B12) 1,000 Mcg Cap, 1000 MCG PO DAILY for 30 Days, #30 CAP Prov:JAQUELIN BLANCHARD [facility] 02/18/24 Gabapentin (Gabapentin) 100 Mg Cap, 100 MG PO BID for 30 Days, #60 CAP Prov:JAQUELIN BLANCHARD [facility] 02/18/24 Ergocalciferol (VITAMIN D 02615 UNIT) 50,000 [place], [address] UNIT PO Q7D for 90 Days, #12 CAP Prov:JAQUELIN BLANCHARD [facility] 02/18/24 Cephalexin (KEFLEX CAPSULE) 250 Mg Cp, 2 CAP PO BID for 4 Days, #28 CAP Prov:JAQUELIN BLANCHARD 02/18/24 Azithromycin (Zithromax Z-Rafiq) 250 Mg Tab, 250 MG PO DAILY for 4 Days, #4 TAB Prov:JAQUELIN BLANCHARD 02/18/24 Tramadol Hcl (Tramadol Hcl) 50 Mg Tab, 50 MG PO Q8HP PRN for 5 Days, #15 TAB Prov:YOANA LANDA MD 04/07/23 Acetaminophen (Acetaminophen) 500 Mg Tab, 500 MG PO Q4HP PRN, #30 TAB Prov:WENCESLAO MCCLOUD PAC 04/03/23 Information Source: Patient Mode of Arrival: Ambulatory Severity: Moderate Timing: Hours Duration: Since onset Prehospital treatment: None Past Medical History PAST MEDICAL HISTORY: Anxiety, HTN, Liver 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: No Pertinent TOOLING INSPECTOR History Family History Family History: Unknown Social History Smoker: Non-Smoker Alcohol: Sober Drugs: Denies Drug Use Lives In: Home All Other Systems: Reviewed and Negative (As per HPI) Physical Exam General Appearance: Mild Distress, Normal HEENT: Normal ENT Inspection, Pharynx Normal, TMs Normal Neck: Full Range of Motion, Non-Tender, Normal, Normal Inspection Respiratory: Chest Non-Tender, Lungs Clear, No Accessory Muscle Use, No Respiratory Distress, Normal Breath Sounds Cardiovascular: No Edema, No JVD, No Murmur, No Gallop, Normal Peripheral Pulses, Regular Rate/Rhythm Breast Exam: Deferred Gastrointestinal: No Organomegaly, Non Tender, No Pulsatile Mass, Normal Bowel Sounds, Soft Genitalia: Deferred Pelvic: Deferred Rectal: Deferred Extremities: No calf tenderness, Normal capillary refill, Normal inspection, Normal range of motion, Non-tender, No pedal edema Musculoskeletal : Apperance: Normal Neurologic: Alert, prepress stripper II-XII nml as Tested, No Motor Deficits, Normal Affect, Normal Mood, No Sensory Deficits Cerebellar Function: Normal Reflexes: Normal Skin: Dry, Normal Color, Warm Lymphatic: No Adenopathy Was a procedure done? Was a procedure done?: No Differential Dx Considerations may include: PNA, URI, viral syndrome, MT, PE, ACS, Angina, among others X-Ray, Labs, Meds, VS Vital Signs Date Time Temp Pulse Resp B/P (MAP) Pulse Ox O2 Delivery O2 Flow Rate FiO2 11/28/24 23:45 60 20 98 Nasal Cannula 3.0 11/28/24 23:45 97.3 76 20 113/75 (88) 98 97.3 11/28/24 21:45 99.5 79 12 117/76 (90) 95 99.5 11/28/24 21:44 71 Lab Test 11/29/24 00:19 11/28/24 21:46 Range/Units Troponin I High Sensitivity Pending < 3 L </=34 ng/L White Blood Count 7.3 4.4-10.8 10^3/uL Red Blood Count 4.28 4.0-5.20 10^6/uL Hemoglobin 12.3 12.2-16.2 g/dL Hematocrit 38.0 36.0-46.0 % Mean Corpuscular Volume 88.8 80.0-100.0 fL Mean Corpuscular Hemoglobin 28.6 28.0-32.0 pg Mean Corpuscular Hemoglobin Concent 32.3 32.0-36.0 g/dL Red Cell Distribution Width 15.2 H 11.8-14.3 % Platelet Count 132 L 140-450 10^3/uL Mean Platelet Volume 9.1 6.9-10.8 fL Neutrophils (%) (Auto) 71.1 37.0-80.0 % Lymphocytes (%) (Auto) 16.3 10.0-50.0 % Monocytes (%) (Auto) 9.2 0.0-12.0 % Eosinophils (%) (Auto) 2.8 0.0-7.0 % Basophils (%) (Auto) 0.6 0.0-2.0 % Neutrophils # (Auto) 5.2 1.6-8.6 10 ^3/uL Lymphocytes # (Auto) 1.2 0.4-5.4 10 ^3/uL Monocytes # (Auto) 0.7 0-1.3 10 ^3/uL Eosinophils # (Auto) 0.2 0-0.8 10 ^3/uL Basophils # (Auto) 0 0-0.2 10 ^3/uL Nucleated Red Blood Cells 0.0 % Prothrombin Time 10.3 9.3-11.8 sec Prothrombin Time INR 0.97 0.9-1.15 Activated Partial Thromboplast Time 28.2 24.5-34.5 SEC Sodium Level 140 136-145 mmol/L Potassium Level 4.9 3.5-5.1 mmol/L Chloride Level 108 H 98-107 mmol/L Carbon Dioxide Level 28 20-31 mmol/L Anion Gap 4 L 5-15 Blood Urea Nitrogen 18 9-23 mg/dL Creatinine 1.23 H 0.550-1.02 mg/dL Glomerular Filtration Rate Calc 56 >90 mL/min BUN/Creatinine Ratio 14.6 10.0-20.0 Serum Glucose 95 74-106 mg/dL Lactic Acid Level 0.6 0.4-2.0 mmol/L Calcium Level 9.2 8.7-10.4 mg/dL Total Bilirubin < 0.2 L 0.2-1.0 mg/dL Aspartate Amino Transferase (AST) 24 13-40 U/L Alanine Aminotransferase (ALT) 17 7-40 U/L Alkaline Phosphatase 68 46-116 U/L Total Protein 6.5 5.7-8.2 g/dL Albumin 4.1 3.2-4.8 g/dL PATIENT: SAMIR KIRKLAND ACCT: [id number] UNIT: [id number] : 1980 LOC: ER ROOM / BED: / AGE / SEX: 44 / F ADM STATUS: REG ER SERVICE 34 ORDERING PHYSICIAN: VICENTA CARMONA MD PROCEDURE(s): CXRP - CHEST PORTABLE REASON: SOB ORDER NUMBER(s): [id number], ACCESSION NUMBER(s): [id number] CHEST RADIOGRAPH REASON FOR EXAM: SOB COMPARISON: XY CHEST XRAY 1 VIEW on DOS: 02/17/24 TECHNIQUE: One view of the chest is provided FINDINGS: The cardiomediastinal silhouette is within normal limits for technique. There is persistent mild elevation of the right hemidiaphragm. There is no focal airspace disease. There is no significant pleural effusion. No acute bony abnormality is identified. IMPRESSION: No radiographic evidence of acute cardiopulmonary process. Time of 1ST Reevaluation: 22:00 Reevaluation 1ST: Unchanged Patient Education/Counseling: Diagnosis, Treatment, Need For Follow Up Family Education/Counseling: No Family Present SEPSIS Sepsis Screen Date sepsis recognized/suspect: Nov 28, 2024 Time Sepsis recognized/suspect: 2144 Recent Procedure: No On Antibiotic Therapy: No Respiratory Rate >20: No Heart Rate >90: No Temp<36 C (96.8 F) or >38.3 C: No SBP <90 or MAP <65 mmHG: No New Acute Mental Status Change: No Is the patient on CPAP, BIPAP,: No Physician Orders Troponin-I Hs (11/29/24 00:00) Blood Culture (11/28/24 21:35) Chest Portable (11/28/24 21:35) Electrocardigram (11/28/24 21:35) Covid19 Antigen Yesenia (11/28/24 ) Rapid Influenza A&B (11/28/24 21:35) Ceftriaxone 1gm/50ml D5w (Rocephin) (11/29/24 01:00) Azithromycin 500mg/ 250ml (Zithromax 50 (11/29/24 01:00) Vital Signs Date Time Temp Pulse Resp B/P (MAP) Pulse Ox O2 Delivery O2 Flow Rate FiO2 11/28/24 23:45 60 20 98 Nasal Cannula 3.0 11/28/24 23:45 97.3 76 20 113/75 (88) 98 97.3 11/28/24 21:45 99.5 79 12 117/76 (90) 95 99.5 11/28/24 21:44 71 Laboratory Tests Test 11/28/24 21:46 Lactic Acid Level 0.6 mmol/L (0.4-2.0) White Blood Count 7.3 10^3/uL (4.4-10.8) Departure 1 Departure Time of Disposition: 01:04 Impression: Primary Impression: Respiratory failure with hypoxia Additional Impressions: Pneumonia Acute renal injury Disposition: ADMITTED INPATIENT Condition: Guarded Discharged With: Self Comments Shortness of Breath with Hypoxia Chief Complaint: Shortness of breath with cough and wheezing History of Present Illness: Patient is a 44-year-old female presenting to the Emergency Department with complaints of shortness of breath, cough, and wheezing that has been ongoing for the past three weeks. She reports that symptoms worsen with exertion. The patient states she was hospitalized for pneumonia approximately three weeks ago, but her symptoms have not improved since discharge. On presentation, her oxygen saturation was noted to be 89% on room air, requiring supplemental oxygen via nasal cannula. She has no reported fever, chest pain, or hemoptysis. The patient appears to be in mild respiratory distress with evidence of hypoxia. Review of Systems: Respiratory: Positive for shortness of breath, cough, and wheezing. Worse with exertion. Vital Signs: O2 Saturation: 89% on room air, improved with supplemental oxygen Other vital signs not reported in brush washer Physical Exam: General: 44-year-old female in mild respiratory distress. HEENT: Not reported. Cardiovascular: Not reported. Respiratory: Mild Diminished breath sounds at the bases bilaterally. Abdomen: Not reported. Extremities: Not reported. Neurological: Not reported. Lab Results: BUN: 18 mg/dL (normal) Creatinine: 1.23 mg/dL (mildly elevated) Troponin: <3 ng/L (normal) WBC: 7.3 x 10^3/?L (normal) Platelets: 132 x 10^3/?L (slightly low) Imaging and Other Relevant Results: Chest X-ray: No acute pathology. No clear infiltrate visualized. Medical Decision Making: Summary Statement: 44-year-old female with history of recent pneumonia presenting with persistent shortness of breath, cough, wheezing, and hypoxia requiring supplemental oxygen. Labs show mild acute kidney injury and mild thrombocytopenia. Problem List: 1. Respiratory failure with hypoxia 2. Partially treated pneumonia 3. Acute kidney injury 4. Dehydration 5. Mild thrombocytopenia Differential Diagnosis: Partially treated pneumonia, community-acquired pneumonia with resistant organism, viral pneumonia, pulmonary embolism, exacerbation of undiagnosed asthma or COPD, interstitial lung disease, heart failure, atypical pneumonia, COVID-19 pneumonia. ED Course: Patient was placed on supplemental oxygen via nasal cannula for hyp oxia. Administered IV Rocephin and IV azithromycin for empiric antibiotic coverage. Bronchodilator nebulizer treatment provided for wheezing. Laboratory studies revealed mild acute kidney injury and mild thrombocytopenia. Chest X-ray showed no acute pathology or clear infiltrate. Assessment and Plan: 1. Respiratory Failure with Hypoxia: - Continue supplemental oxygen to maintain O2 saturation >92% - Admit to medical floor for continued respiratory support and monitoring - Continue bronchodilator treatments as needed for wheezing - Consider pulmonary consultation if no improvement 2. Partially Treated Pneumonia: - Continue IV antibiotics with Rocephin and azithromycin - Consider respiratory cultures to identify potential resistant organisms - Monitor for clinical improvement 3. Acute Kidney Injury with Dehydration: - Initiate IV fluid resuscitation - Monitor renal function with serial creatinine measurements - Adjust medication dosing as appropriate for renal function 4. Mild Thrombocytopenia: - Monitor platelet count - Consider hematology consultation if platelets continue to decrease 5. Disposition: Admit to medical floor for management of respiratory failure, continued antibiotic therapy, and monitoring of renal function. Additional Notes: Patient admitted for respiratory failure with hypoxia, partially treated pneumonia, and acute kidney injury Billing Information: ICD-10: J96.01 - Acute respiratory failure with hypoxia ICD-10: J18.9 - Pneumonia, unspecified organism ICD-10: N17.9 - Acute kidney injury, unspecified ICD-10: E86.0 - Dehydration Critical Care Note Critical Care Time?: No Stability Stability form required: No Heart Score Heart Score: Heart Score Response (Comments) Value History Slightly Suspicious 0 EKG Normal 0 Age <45 0 Risk Factors 1 or 2 risk factors 1 Troponin Normal limit 0 Total 1 I personally scribed for VICENTA CARMONA MD ([email or web address]) on 11/28/24 at 23:19. Electronically submitted by Howard Keller ([email or web address]). I personally scribed for VICENTA CARMONA MD ([email or web address]) on 11/29/24 at 00:56. Electronically submitted by Tim Scott ([email or web address]). VICENTA CARMONA MD Nov 28, 2024 23:19
--- NOTE | 2024-11-28 23:56 | DVH ---
CHEST RADIOGRAPH REASON FOR EXAM: SOB COMPARISON: XY CHEST XRAY 1 VIEW on DOS: 02/17/24 TECHNIQUE: One view of the chest is provided FINDINGS: The cardiomediastinal silhouette is within normal limits for technique. There is persistent mild elevation of the right hemidiaphragm. There is no focal airspace disease. There is no significa nt pleural effusion. No acute bony abnormality is identified. IMPRESSION: No radiographic evidence of acute cardiopulmonary process.
[2024-11-29] MEDS ORDERED: ALBUTEROL SULF 2.5 MG/0.5ML(0.5%) NEB SOLN NEB ONE (01:15)
[2024-11-29] MEDS: LEVALBUTEROL HCL 1.25 MG/3 ML NEB NEB ONE (01:29)
[2024-11-29] MEDS ORDERED: ONDANSETRON HCL 4 MG/2 ML VIAL IV PRN (04:15)
[2024-11-29] MEDS ORDERED: DOCUSATE SOD 100 MG CAP PO PRN (04:15)
[2024-11-29] MEDS ORDERED: ALBUTEROL SULF 2.5 MG/0.5ML(0.5%) NEB SOLN NEB PRN (04:15)
[2024-11-29] MEDS ORDERED: ACETAMINOPHEN 325 MG TAB PO PRN (04:15)
[2024-11-29] MEDS ORDERED: IPRATROPIUM BROM 0.5 MG/2.5ML INH SOL NEB PRN (04:15)
[2024-11-29 04:23] VITALS: BP 117/74; PULSE 79; RESP 18; O2SAT 98
[2024-11-29] MEDS ORDERED: MORPHINE SULFATE INJ 2 MG/ml SYRG IV PRN (04:45)
[2024-11-29] MEDS: methylPREDNISolone SOD SUCC 125 MG/2 ML VL IV ONE (04:45)
[2024-11-29] MEDS ORDERED: NITROGLYCERIN 0.4 MG SL TAB SL PRN (04:45)
--- NOTE | 2024-11-29 04:55 | DVHHP2 ---
History of Present Illness Reason for Visit: Respiratory failure with hypoxia History of Present Illness The patient is a 44-year-old female with past medical history of anxiety, liver disease, and hypertension who presented to [facility] ED with complaint of shortness of breaths. Patient reports symptoms progressively get worse with wheezing, hypoxia, cough with greenish sputum, chest pain, bilateral arm pain, getting worse that prompted this visit. Patient reports that she has been experiencing symptoms of chronic pneumonia infection for over the past year, but reports symptoms getting worse along with new onset of pain for the past 2 weeks. Patient was seen and evaluated in the ED, laboratory data shows WBC 7.3, platelets 132, sodium 140, potassium 4.9, BUN 18, creatinine 1.23, glucose 95, calcium 9.2, troponin < 3, blood pressure 113/75, heart rate 76, temperature 97.6 F, O2 saturation 99% on oxygen. Chest x-ray showed no radiographic evidence of acute cardiopulmonary disease. Patient was started on IV antibiotic regimen azithromycin, please see medication orders section in the computer. On my assessment, patient denied chest pain at this moment, no headache, no dizziness, currently on oxygen, no nausea, no vomiting, no fever, no chills. Patient was admitted for further evaluation and medical management. Past Medical History Anxiety, HTN, Liver Past Surgical History Family History Reviewed, noncontributory to the management of this case. Past Social History The patient lives at home, denies smoking, alcohol or illicit drugs abuse. Review of Systems Constitutional: Yes: Weakness; No: Fever, Chills, Sweats, Malaise, Other Eyes: No: Pain, Vision change, Conjunctivae inflammation, Eyelid inflammation, Other, Redness ENT: No: Ear pain, Ear discharge, Nose pain, Nose discharge, Nose congestion, Mouth pain, Mouth swelling, Throat pain, Throat swelling, Other Respiratory: Cough, Shortness of breath, SOB with excertion, Wheezing, Other (SOB at rest); No: Dry, Hemoptysis, Pleuritic Pain, Sputum, Wheezing Cardiovascular: No: Chest Pain, Palpitations, Orthopnea, Paroxysmal Noc. Dyspnea, Edema, Lt Headedness, Other Gastrointestinal: No: Nausea, Vomiting, Abdominal Pain, Diarrhea, Constipation, Melena, Hematochezia, Other Genitourinary: No Dysuria, No Frequency, No Incontinence, No Hematuria, No Retention, No Other Musculoskeletal: No: other, neck pain, shoulder pain, arm pain, back pain, hand pain, leg pain, foot pain Skin: No: Rash, Lesions, Jaundice, Bruising, Other Neurological: No: Weakness, Numbness, Incoordination, Change in speech, Confusion, Seizures, Other Allergies: Coded Allergies: NO KNOWN ALLERGIES (Unverified , 03/10/16) Medications Current Medications Medications Dose Ordered Sig/Juancarlos Route Start Time Stop Time Status Last Admin Dose Admin Albuterol 2.5 mg Q4HPRN PRN NEB 11/29/24 04:15 Ipratropium [place] 0.5 mg Q4HPRN PRN NEB 11/29/24 04:15 Sodium Chloride 10 ml Q8HR IV 11/29/24 06:00 Acetaminophen/ Hydrocodone Bitart 1 tab Q4HP PRN PO 11/29/24 04:15 Ondansetron HCl 4 mg Q4HP PRN IV 11/29/24 04:15 Docusate Sodium 100 mg BIDPRN PRN PO 11/29/24 04:15 Acetaminophen 650 mg Q6HP PRN PO 11/29/24 04:15 Exam Vital Signs Vital Signs Date Time Temp Pulse Resp B/P (MAP) Pulse Ox O2 Delivery O2 Flow Rate FiO2 11/29/24 04:23 79 18 117/74 98 3.0 11/29/24 01:29 Nasal Cannula* 32 11/28/24 23:45 97.3 97.3 General Appearance: Alert, Oriented X3, Cooperative, No acute distress HEENT: Atraumatic, PERRLA, EOMI, Mucous membr. moist/pink Respiratory: Normal air movement, Other (Diminished breath sounds) Cardiovascular: Regular rate, Normal S1, Normal S2, No murmurs Abdominal: Normal bowel sounds, Soft, No tenderness, No hepatospenomegaly, No masses Extremities: No clubbing, No cyanosis, No edema, Normal pulses, No tenderness/swelling Skin: No rashes, No breakdown, No significant lesion Neuro: Normal speech, Normal tone, Sensation intact, Cranial nerves 3-12 NL, Reflexes 2+, Other (Generalized weakness) Psych/Mental Status: Mental status NL, Mood NL Labs/Xrays Labs Test 11/29/24 00:19 11/28/24 21:46 Range/Units Troponin I High Sensitivity < 3 L </=34 ng/L White Blood Count 7.3 4.4-10.8 10^3/uL Red Blood Count 4.28 4.0-5.20 10^6/uL Hemoglobin 12.3 12.2-16.2 g/dL Hematocrit 38.0 36.0-46.0 % Mean Corpuscular Volume 88.8 80.0-100.0 fL Mean Corpuscular Hemoglobin 28.6 28.0-32.0 pg Mean Corpuscular Hemoglobin Concent 32.3 32.0-36.0 g/dL Red Cell Distribution Width 15.2 H 11.8-14.3 % Platelet Count 132 L 140-450 10^3/uL Mean Platelet Volume 9.1 6.9-10.8 fL Neutrophils (%) (Auto) 71.1 37.0-80.0 % Lymphocytes (%) (Auto) 16.3 10.0-50.0 % Monocytes (%) (Auto) 9.2 0.0-12.0 % Eosinophils (%) (Auto) 2.8 0.0-7.0 % Basophils (%) (Auto) 0.6 0.0-2.0 % Neutrophils # (Auto) 5.2 1.6-8.6 10 ^3/uL Lymphocytes # (Auto) 1.2 0.4-5.4 10 ^3/uL Monocytes # (Auto) 0.7 0-1.3 10 ^3/uL Eosinophils # (Auto) 0.2 0-0.8 10 ^3/uL Basophils # (Auto) 0 0-0.2 10 ^3/uL Nucleated Red Blood Cells 0.0 % Prothrombin Time 10.3 9.3-11.8 sec Prothrombin Time INR 0.97 0.9-1.15 Activated Partial Thromboplast Time 28.2 24.5-34.5 SEC Sodium Level 140 136-145 mmol/L Potassium Level 4.9 3.5-5.1 mmol/L Chloride Level 108 H 98-107 mmol/L Carbon Dioxide Level 28 20-31 mmol/L Anion Gap 4 L 5-15 Blood Urea Nitrogen 18 9-23 mg/dL Creatinine 1.23 H 0.550-1.02 mg/dL Glomerular Filtration Rate Calc 56 >90 mL/min BUN/Creatinine Ratio 14.6 10.0-20.0 Serum Glucose 95 74-106 mg/dL Lactic Acid Level 0.6 0.4-2.0 mmol/L Calcium Level 9.2 8.7-10.4 mg/dL Total Bilirubin < 0.2 L 0.2-1.0 mg/dL Aspartate Amino Transferase (AST) 24 13-40 U/L Alanine Aminotransferase (ALT) 17 7-40 U/L Alkaline Phosphatase 68 46-116 U/L Total Protein 6.5 5.7-8.2 g/dL Albumin 4.1 3.2-4.8 g/dL PATIENT: SAMIR KIRKLAND ACCT: [id number] UNIT: [id number] : 1980 LOC: ER ROOM / BED: / AGE / SEX: 44 / F ADM STATUS: REG ER SERVICE 34 ORDERING PHYSICIAN: VICENTA CARMONA MD PROCEDURE(s): CXRP - CHEST PORTABLE REASON: SOB ORDER NUMBER(s): [id number], ACCESSION NUMBER(s): [id number] CHEST RADIOGRAPH REASON FOR EXAM: SOB COMPARISON: XY CHEST XRAY 1 VIEW on DOS: 02/17/24 TECHNIQUE: One view of the chest is provided FINDINGS: The cardiomediastinal silhouette is within normal limits for technique. There is persistent mild elevation of the right hemidiaphragm. There is no focal airspace disease. There is no significant pleural effusion. No acute bony abnormality is identified. IMPRESSION: No radiographic evidence of acute cardiopulmonary process. SEPSIS Sepsis Screen Date sepsis recognized/suspect: Nov 28, 2024 Time Sepsis recognized/suspect: 2144 Recent Procedure: No On Antibiotic Therapy: No Respiratory Rate >20: No Heart Rate >90: No Temp<36 C (96.8 F) or >38.3 C: No SBP <90 or MAP <65 mmHG: No New Acute Mental Status Change: No Is the patient on CPAP, BIPAP,: No Physician Orders Blood Culture (11/28/24 21:35) Chest Portable (11/28/24 21:35) Electrocardigram (11/28/24 21:35) Covid19 Antigen Yesenia (11/28/24 ) Rapid Influenza A&B (11/28/24 21:35) Complete Blood Count (11/29/24 04:07) Comprehensive Metabolic Panel (11/29/24 04:07) Albuterol Medneb (Ventolin Medneb) (11/29/24 04:15) Ipratropium Medneb (Atrovent Medneb) (11/29/24 04:15) Allergies (11/29/24 04:07) Code Status (11/29/24 04:07) Sodium Chloride Lock (Saline Lock Ns) (11/29/24 06:00) Oxygen Per Hour (11/29/24 04:07) Hydrocodone-Acet 5/325mg Tab (Pala 5/32 (11/29/24 04:15) Ondansetron Hcl (Zofran) (11/29/24 04:15) Docusate Sodium Capsule (Colace Capsule) (11/29/24 04:15) Complete Blood Count (11/30/24 04:00) Comprehensive Metabolic Panel (11/30/24 04:00) Cardiac Diet-2gna,Lofat,Lochol (11/29/24 Breakfast) Condition: Serious (11/29/24 04:07) Acetaminophen Tablet (Tylenol Tablet) (11/29/24 04:15) Bedrest With Bathroom Privileg (11/29/24 04:07) Sequential Compression Device (11/29/24 ) Vital Signs Date Time Temp Pulse Resp B/P (MAP) Pulse Ox O2 Delivery O2 Flow Rate FiO2 11/29/24 04:23 79 18 117/74 98 3.0 11/29/24 01:29 20 99 Nasal Cannula* 3 32 11/28/24 23:45 60 20 98 Nasal Cannula 3.0 11/28/24 23:45 97.3 76 20 113/75 (88) 98 97.3 11/28/24 21:45 99.5 79 12 117/76 (90) 95 99.5 11/28/24 21:44 71 Laboratory Tests Test 11/28/24 21:46 Lactic Acid Level 0.6 mmol/L (0.4-2.0) White Blood Count 7.3 10^3/uL (4.4-10.8) Medications Medications Dose Ordered Sig/Juancarlos Route Start Time Stop Time Status Last Admin Dose Admin Levalbuterol HCl 1.25 mg STAT ONCE NEB 11/29/24 01:30 11/29/24 01:31 DC 11/29/24 01:29 1.25 MG Assessment/Plan Assessment/Plan Respiratory failure with hypoxia Acute renal injury Pneumonia, unspecified organism Generalized weakness Plan 1. Admit to telemetry unit 2. Breathing treatment 3. Pain control management 4. IV antibiotic management 5. Management of fluids and electrolytes 6. Consultation for hospitalist 7. Diagnostic test chest x-ray 8. DVT prophylaxis-on SCDs 9. Repeat labs CBC, CMP in a.m. 10. Home medication reviewed and reconciled 11. Continue with current medical management 12. Treatment plan discussed with patient and RN. Patient verbalized understanding. Plan discussed with: Patient, Other (RN) My Orders Orders - GABRIELLA GUZMAN DNP Procedure Category Date Status Time Complete Blood Count LAB 11/29/24 Logged 04:07 Comprehensive LAB 11/29/24 Logged Metabolic Panel 04:07 Albuterol Medneb PHA 11/29/24 In Process (Ventolin Medneb) 04:15 Ipratropium Medneb PHA 11/29/24 In Process (Atrovent Medneb) 04:15 Allergies LUCERO 11/29/24 In Process 04:07 Code Status CODE 11/29/24 Transmitted 04:07 Sodium Chloride Lock PHA 11/29/24 In Process (Saline Lock Ns) 06:00 Oxygen Per Hour RT 11/29/24 Transmitted 04:07 Hydrocodone-Acet PHA 11/29/24 In Process 5/325mg Tab (Pala 04:15 Ondansetron Hcl PHA 11/29/24 In Process (Zofran) 04:15 Docusate Sodium PHA 11/29/24 In Process Capsule (Colace 04:15 Complete Blood Count LAB 11/30/24 Verified 04:00 Comprehensive LAB 11/30/24 Verified Metabolic Panel 04:00 Cardiac DIET 11/29/24 Transmitted Diet-2gna,Lofat,Lochol Breakfast Condition: Serious LUCERO 11/29/24 In Process 04:07 Acetaminophen Tablet PHA 11/29/24 In Process (Tylenol Tablet) 04:15 Bedrest With Bathroom LUCERO 11/29/24 In Process Privileg 04:07 Sequential LUCERO 11/29/24 In Process Compression Device Problem List: (1) Respiratory failure with hypoxia (2) Acute renal injury (3) Pneumonia, unspecified organism (4) Generalized weakness Date of Service: Nov 29, 2024 Billing Provider: GABRIELLA GUZMAN DNP Common Visit Codes: [id number] INP/OBS CARE (HIGH) GABRIELLA GUZMAN DNP Nov 29, 2024 04:55
[2024-11-29 05:00] LABS: Hematocrit 39.3 % (36.0-46.0); Hemoglobin 12.5 g/dL (12.2-16.2); Mean Corpuscular Hemoglobin 28.7 pg (28.0-32.0); Mean Corpuscular Volume 90.5 fL (80.0-100.0); Nucleated Red Blood Cells % 0.1 %
[2024-11-29] MEDS: cefTRIAXone 1GM/50ML D5W 50 ML IV ONE (05:03)
[2024-11-29] MEDS: SODIUM CHLORIDE 0.9% 1,000 ML IVB ONE (05:03)
[2024-11-29 05:18] LABS: Alanine Aminotransferase 15 U/L (7-40); Albumin 4.2 g/dL (3.2-4.8); Alkaline Phosphatase 71 U/L (46-116); Anion Gap 5 (5-15); BUN/Creatinine Ratio 13.2 (10.0-20.0); Blood Urea Nitrogen 15 mg/dL (9-23); Calcium 9.3 mg/dL (8.7-10.4); Carbon Dioxide 28 mmol/L (20-31); Chloride 105 mmol/L (98-107); Glucose 90 mg/dL (74-106); Potassium 4.1 mmol/L (3.5-5.1); Sodium 138 mmol/L (136-145); Total Protein 6.7 g/dL (5.7-8.2)
[2024-11-29 05:19] LABS: Bilirubin, Total 0.3 mg/dL (0.2-1.0)
[2024-11-29] MEDS: SODIUM CHLOR 0.9% PF (SALINE LOCK) 10ML VIAL/SYR IV SCH (06:00)
[2024-11-29 07:00] LABS: COVID19 ANTIGEN SOFIA FIA NEGATIVE (NEGATIVE)
[2024-11-29] MEDS: AZITHROMYCIN 500MG/ 250ML 250 ML IV ONE (07:18)
[2024-11-29 07:20] VITALS: PULSE 61; RESP 16; O2SAT 95
[2024-11-29] MEDS: HYDROcodone-ACET 5/325MG TAB PO PRN ×2 (08:38→23:12)
[2024-11-29] MEDS: FAMOTIDINE (10MG/ML) 2ML VL IV SCH (10:18)
--- NOTE | 2024-11-29 13:26 | DVHINCON2 ---
Date of service: Nov 29, 2024 Referring Physician Cristóbal Torres Np Reason for Consultation Acute respiratory failure History of Present Illness History Source: Patient Exam Limitations: No limitations HPI Patient is a 44-year old gentleman with a history of liver disease and COVID in 2019 who presented with cough and mucus production. Was seen in the emergency room where she required supplemental oxygen and was admitted for further workup. Chest x-ray demonstrated bilateral hilar lymphadenopathy and pulmonology was consulted to assist in management. Home Meds Active Scripts Nitrofurantoin Monohydrate Mac (Macrobid) 100 Mg Cap, 100 MG PO BID for 7 Days, #14 CAP Prov:LUEP [place]SH[place] 11/02/24 Elastic Bandages & Supports (Hong Wrist Brace) Mis, UNIT XX DAILY, #1 3 Refills Prov:VICENTA CARMONA MD 10/18/24 Nitrofurantoin Monohydrate Mac (Macrobid) 100 Mg Cap, 100 MG PO BID for 7 Days, #14 CAP Prov:LUPE BROWNEP 05/11/24 Cyanocobalamin (B12) 1,000 Mcg Cap, 1000 MCG PO DAILY for 30 Days, #30 CAP Prov:JAQUELIN BLANCHARD 02/18/24 Gabapentin (Gabapentin) 100 Mg Cap, 100 MG PO BID for 30 Days, #60 CAP Prov:JAQUELIN BLANCHARD 02/18/24 Ergocalciferol (VITAMIN D 07575 UNIT) 50,000 [place], [address] UNIT PO Q7D for 90 Days, #12 CAP Prov:JAQUELIN BLANCHARD 02/18/24 Cephalexin (KEFLEX CAPSULE) 250 Mg Cp, 2 CAP PO BID for 4 Days, #28 CAP Prov:JAQUELIN BLANCHARD 02/18/24 Azithromycin (Zithromax Z-Rafiq) 250 Mg Tab, 250 MG PO DAILY for 4 Days, #4 TAB Prov:JAQUELIN BLANCHARD 02/18/24 Tramadol Hcl (Tramadol Hcl) 50 Mg Tab, 50 MG PO Q8HP PRN for 5 Days, #15 TAB Prov:YOANA LANDA MD 04/07/23 Acetaminophen (Acetaminophen) 500 Mg Tab, 500 MG PO Q4HP PRN, #30 TAB Prov:WENCESLAO MCCLOUD PAC 04/03/23 Past Medical History Cardiac: No pertinent Hx Pulmonary: Other (COVID) Central Nervous System: No pertinent Hx GI: No pertinent Hx Hemotology/Oncology: No pertinent Hx Hepatobiliary: ETOH liver disease Psychiatric: No pertinent Hx Musculoskeletal: No pertinent Hx Rheumotologic: No pertinent Hx Infectious Disease: No peritnent Hx ENT: No pertinent Hx Renal/: No pertinent Hx Endocrine: No pertinent Hx Dermatology: No pertinent Hx Past Surgical History: No pertinent Hx Family History: No pertinent Hx Patient Family History: Patient reports no known family medical history. Smoker: No Hx (Negative) Alocohol: None Drugs: None Lives with: With family Domestic Violence: Neg Review of Systems Constitutional: No symptom reported Ears, Nose, & Throat: No symptom reported Eyes: No symptom reported Pulmonary/Respiratory: Cough Cardiovascular: No symptom reported Gastrointestinal: No symptom reported Genitourinary: No symptom reported Musculoskeletal: No symptom reported Skin: No symptom reported Psychiatric: No symptom reported Endocrine: No symptom reported Hemotologic/Lymphatic: No symptom reported H&P Exam Vital Signs Vital Signs Date Time Temp Pulse Resp B/P (MAP) Pulse Ox O2 Delivery O2 Flow Rate FiO2 11/29/24 11:43 59 11/29/24 08:29 98.6 13 103/70 (81) 95 98.6 11/29/24 07:20 Room Air* 0 21 General Appeara: Well developed, Well nourished, Normal Appearance Head Exam: Normal inspection Neck Exam: Normal inspection, Non-tender, Normal alignment Eye Exam: bilateral eye Normal inspection, bilateral eye PERRL, bilateral eye EOMI Ear Exam: bilateral ear Auricle normal, bilateral ear Canal normal, bilateral ear TM normal Nasal Exam: Normal inspection Mouth: Normal Inspection Pulmonary/Respiratory: Decreased breath sounds Cardiovascular/Chest: Normal inspection Peripheral Pulses: 4+ Radial (R), 4+ Radial (L), 4+ Brachial (R), 4+ Brachial (L) Abdominal Exam: Normal bowel sounds Labs/Xrays Labs Test 11/29/24 05:51 11/29/24 04:38 11/29/24 00:19 11/28/24 21:46 Range/Units Influenza Type A Antigen Negative Negative Influenza Type B Antigen Negative Negative SARS-CoV-2 Antigen (Rapid) Negative NEGATIVE White Blood Count 8.2 4.4-10.8 10^3/uL Red Blood Count 4.34 4.0-5.20 10^6/uL Hemoglobin 12.5 12.2-16.2 g/dL Hematocrit 39.3 36.0-46.0 % Mean Corpuscular Volume 90.5 80.0-100.0 fL Mean Corpuscular Hemoglobin 28.7 28.0-32.0 pg Mean Corpuscular Hemoglobin Concent 31.7 L 32.0-36.0 g/dL Red Cell Distribution Width 15.5 H 11.8-14.3 % Platelet Count 139 L 140-450 10^3/uL Mean Platelet Volume 9.1 6.9-10.8 fL Neutrophils (%) (Auto) 67.9 37.0-80.0 % Lymphocytes (%) (Auto) 20.2 10.0-50.0 % Monocytes (%) (Auto) 8.9 0.0-12.0 % Eosinophils (%) (Auto) 2.5 0.0-7.0 % Basophils (%) (Auto) 0.5 0.0-2.0 % Neutrophils # (Auto) 5.6 1.6-8.6 10 ^3/uL Lymphocytes # (Auto) 1.7 0.4-5.4 10 ^3/uL Monocytes # (Auto) 0.7 0-1.3 10 ^3/uL Eosinophils # (Auto) 0.2 0-0.8 10 ^3/uL Basophils # (Auto) 0 0-0.2 10 ^3/uL Nucleated Red Blood Cells 0.1 % Sodium Level 138 136-145 mmol/L Potassium Level 4.1 3.5-5.1 mmol/L Chloride Level 105 98-107 mmol/L Carbon Dioxide Level 28 20-31 mmol/L Anion Gap 5 5-15 Blood Urea Nitrogen 15 9-23 mg/dL Creatinine 1.14 H 0.550-1.02 mg/dL Glomerular Filtration Rate Calc 61 >90 mL/min BUN/Creatinine Ratio 13.2 10.0-20.0 Serum Glucose 90 74-106 mg/dL Calcium Level 9.3 8.7-10.4 mg/dL Total Bilirubin 0.3 0.2-1.0 mg/dL Aspartate Amino Transferase (AST) 22 13-40 U/L Alanine Aminotransferase (ALT) 15 7-40 U/L Alkaline Phosphatase 71 46-116 U/L Total Protein 6.7 5.7-8.2 g/dL Albumin 4.2 3.2-4.8 g/dL Troponin I High Sensitivity < 3 L </=34 ng/L Prothrombin Time 10.3 9.3-11.8 sec Prothrombin Time INR 0.97 0.9-1.15 Activated Partial Thromboplast Time 28.2 24.5-34.5 SEC Lactic Acid Level 0.6 0.4-2.0 mmol/L Assessment/Plan Plan Impression Acute hypoxemic respiratory failure Bilateral hilar lymphadenopathy Acute bronchitis/pneumonia Hx of COVID Patient seen and examined Events Low oxygen requirements On 2 liters nasal cannula Desaturations reported Labs and imaging reviewed Chest x-ray shows bilateral hilar lymphadenopathy Management Supplemental oxygen Titrate to maintain sats 90% or above Incentive spirometry Antibiotics Bronchodilators Monitor renal function Monitor electrolytes Supplement as needed Obtain UDS and D-dimer Obtain CT of the chest without contrast to better characterize lung parenchyma DVT prophylaxis Plan discussed with: Patient CORY SOL MD Nov 29, 2024 13:26
[2024-11-29] MEDS: methylPREDNISolone SOD SUCC 40 MG/ML VL IV SCH (14:22)
[2024-11-29 15:39] LABS: Benzodiazephine Screen, Urine Neg (NEGATIVE)
[2024-11-29 15:40] LABS: Opiate Scree,Urine Neg (NEGATIVE); Phencyclidine Screen, Urine Neg (NEGATIVE)
[2024-11-29 15:50] LABS: Amphetamine Screen, Urine Neg (NEGATIVE); Barbiturate Scree,Urine Neg (NEGATIVE); Cannabinoid Screen, Urine Neg (NEGATIVE); Cocaine Screen, Urine Neg (NEGATIVE)
[2024-11-29 16:30] VITALS: BP 129/86; PULSE 77; RESP 20; TEMP 98.2; O2SAT 95
[2024-11-29 16:32] VITALS: PULSE 77; RESP 20; O2SAT 95
--- NOTE | 2024-11-29 17:07 | DVH ---
Procedure: CT CHEST WITHOUT CONTRAST Reason for study/Clinical History: bilateral hilar lymphadenopathy Comparison Study: Chest radiograph performed same date. Exam Date: 11/29/2024 02:00 PM TECHNIQUE: Multidetector CT of the chest was performed from the lung apices to the upper abdomen with out the use of intravenous contract. Coronal and sagittal multiplanar reformats were performed. Radiation Dose Information: CT Dose: CTDI volume is 8.4 mGy. Dose-length product is 309.4 mGy*cm The dose indicators for CT are the volume Computed Tomography (CT) Dose Index (CTDIvol) and the Dose Length Product (DLP), and are measured in units of mGy and mGy-cm, respectively. These indicators are not patient dose, but values generated from the CT scanner acquisition factors. The report includes radiation exposure data for exposures received during this examination. FINDINGS: Lower neck: Normal thyroid. Lungs: Linear scarring present in the bilateral upper lobes. There is left lower lobe atelectasis. No suspicious pulmonary nodule. Central airways: Patent. Pleura: No pleural effusion or pneumothorax. Heart/Vascular Structures: Normal heart size. No pericardial effusion. Normal caliber thoracic aorta. Enlarged main pulmonary artery measuring 4.7 cm. Lymph Nodes: Limited evaluation for hilar lymphadenopathy without intravenous contrast. Within this l imitation there does appear to be an enlarged right hilar lymph nodes measuring up to 2.6 cm in short axis. No significant axillary or mediastinal lymph nodes. Musculoskeletal: No acute osseous abnormality. Soft tissues: Normal. Upper abdomen: Limited portions of the upper abdomen show gallstones and enlarged spleen and liver IMPRESSION: 1. Right hilar lymphadenopathy. Findings could be related to sequelae of a recent lung infection alte rnatively can be seen in setting such as sarcoidosis. 2. Scarring in the lungs which could be related to previous infection. No suspicious lung nodule or c onfluence airspace disease however clinical correlation for any ongoing infection is recommended. 3. Enlarged main pulmonary artery measuring 4.7 cm which can be seen in pulmonary arterial hypertensi on. Correlation with echocardiogram recommended. 4. Enlarged liver and spleen. Correlation for underlying systemic process recommended. 5. Gallstones. HS:Y Radiation optimization: All CT scans at this facility use at least one of these dose optimization radha hniques: automated exposure control mA and/or kV adjustment per patient size (includes targeted exam s where dose is matched to clinical indication) or iterative reconstruction.
[2024-11-29 20:00] VITALS: PULSE 56; PULSE 60; RESP 18; O2SAT 98
[2024-11-29 21:00] VITALS: BP 128/88; PULSE 60; RESP 18; TEMP 98.1; O2SAT 98
[2024-11-30] VITALS (10 sets, daily range): BP systolic 101–147; BP diastolic 54–104; PULSE 57–70; RESP 15–19; TEMP 98.1–98.6; O2SAT 91–100
[2024-11-30 07:40] LABS: Hematocrit 36.9 % (36.0-46.0); Hemoglobin 12.2 g/dL (12.2-16.2); Mean Corpuscular Hemoglobin 30.5 pg (28.0-32.0); Mean Corpuscular Volume 92.2 fL (80.0-100.0); Nucleated Red Blood Cells % 0.0 %
[2024-11-30 07:54] LABS: Alanine Aminotransferase 13 U/L (7-40); Alkaline Phosphatase 66 U/L (46-116); Anion Gap 9 (5-15); BUN/Creatinine Ratio 14.4 (10.0-20.0); Blood Urea Nitrogen 18 mg/dL (9-23); Calcium 9.6 mg/dL (8.7-10.4); Carbon Dioxide 22 mmol/L (20-31); Potassium 4.8 mmol/L (3.5-5.1); Sodium 138 mmol/L (136-145); Total Protein 6.4 g/dL (5.7-8.2)
[2024-11-30 07:55] LABS: Albumin 3.9 g/dL (3.2-4.8)
[2024-11-30 07:56] LABS: Bilirubin, Total 0.2 mg/dL (0.2-1.0); Chloride 107 mmol/L (98-107); Glucose 146 mg/dL (74-106)
[2024-11-30 08:56] LABS: Urine Protein, UAD Negative (Negative)
[2024-11-30] MEDS: cefTRIAXone 1GM/50ML D5W 50 ML IV SCH (11:06)
[2024-11-30] MEDS: AZITHROMYCIN 500MG/ 250ML 250 ML IV SCH (12:22)
--- NOTE | 2024-11-30 12:54 | DVHPN2 ---
Progress Note - Dictate Date Seen: Nov 30, 2024 Has the PT tested + for MRSA If YES, has PT been informed?: No Medical Necessity Reason Pt with a Central, PICC or Fol: No vital signs Vital Sign Date Time Temp Pulse Resp B/P (MAP) Pulse Ox O2 Delivery O2 Flow Rate FiO2 11/30/24 09:43 96 Nasal Cannula* 1 24 11/30/24 09:00 98.1 66 19 136/93 (107) 98.1 Total Intake and Output 11/29/24 11/29/24 11/30/24 15:00 23:00 07:00 Intake Total 250 ml 100 ml 950 ml Balance 250 ml 100 ml 950 ml medications Current Medications Medications Dose Ordered Sig/Juancarlos Route Start Time Stop Time Status Last Admin Dose Admin Albuterol 2.5 mg Q4HPRN PRN NEB 11/29/24 04:15 Ipratropium [place] 0.5 mg Q4HPRN PRN NEB 11/29/24 04:15 Sodium Chloride 10 ml Q8HR IV 11/29/24 06:00 11/30/24 05:10 10 ML Acetaminophen/ Hydrocodone Bitart 1 tab Q4HP PRN PO 11/29/24 04:15 11/29/24 17:42 1 TAB Ondansetron HCl 4 mg Q4HP PRN IV 11/29/24 04:15 Docusate Sodium 100 mg BIDPRN PRN PO 11/29/24 04:15 Acetaminophen 650 mg Q6HP PRN PO 11/29/24 04:15 Ceftriaxone Sodium 50 ml @ 100 mls/hr DAILY@09 IV 11/30/24 09:00 11/30/24 11:06 100 MLS/HR Azithromycin 250 ml @ 125 mls/hr DAILY IV 11/30/24 10:00 11/30/24 12:22 125 MLS/HR Methylprednisolone Sodium Succinate 40 mg Q8HR IV 11/29/24 14:00 11/30/24 05:10 40 MG Famotidine 20 mg Q12HR IV 11/29/24 10:00 11/30/24 11:06 20 MG Nitroglycerin 0.4 mg Q5MINP PRN SL 11/29/24 04:45 Morphine Sulfate 2 mg Q30M PRN IV 11/29/24 04:45 Acetaminophen/ Hydrocodone Bitart 2 tab Q4HPRN PRN PO 11/29/24 23:00 11/30/24 11:24 2 TAB laboratory and microbiology Laboratory Tests 11/30/24 06:54 Test 11/30/24 06:54 Range/Units Serum Glucose 146 H 74-106 mg/dL Assessment/Plan Acute hypoxemic respiratory failure Bilateral hilar lymphadenopathy Acute bronchitis/pneumonia Hx of COVID Patient seen and examined Events none CT chest reviewed 1. Right hilar lymphadenopathy. 2. Scarring in the lungs which could be related to previous infection. No suspicious lung nodule or confluence airspace disease however clinical correlation for any ongoing infection is recommended. 3. Enlarged main pulmonary artery measuring 4.7 cm which can be seen in pulmonary arterial hypertension. Correlation with echocardiogram recommended. 4. Enlarged liver and spleen. Correlation for underlying systemic process recommended. 5. Gallstones. Management Supplemental oxygen Titrate to maintain sats 90% or above Incentive spirometry Antibiotics Bronchodilators Monitor renal function Monitor electrolytes Supplement as needed DVT prophylaxis Plan discussed with: Patient CORY SOL MD Nov 30, 2024 12:54
--- NOTE | 2024-11-30 15:51 | DVHPNRES ---
Progress Note Date Seen: Nov 30, 2024 Resident Creating Document: NIKI THOMAS RESIDENT Has the PT tested + for MRSA If YES, has PT been informed?: No Medical Necessity Reason Pt with a Central, PICC or Fol: No Subjective Review of Systems 44-year-old female with past medical history of anxiety, liver disease and hypertension presented to the emergency department with complaints of shortness of Breath. Patient reports she has been having it for The past 2 weeks, but symptoms increased in the past 2 days were she had wheezing, hypoxia, cough with greenish sputum chest pain which was about 5/ 10 in intensity, right arm pain radiating to her hands, which prompted her to this visit. She complains that it is associated with dizziness, disorientation, blurred vision and her child has told her on several occasions that which he says is making no sense. Patient gives history that she has had chronic pneumonia infections over the past year. she reports that she was given home oxygen before and had not required it until 2 days ago when she needed 1-2 L of oxygen that she had at home to feel better. patient denies any recent travel or sick contacts. 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 PMH: Anxiety, hypertension, liver disease, gallstone PSH: Family history: Reviewed, noncontributory to the management of this case Past social history: The patient lives at home, denies smoking, reports she took alcohol before but quit in 2021 and does not take it anymore and denies any drug abuse. Allergies: None ROS: The patient was seen and examined by me in the bedside. Overnight events were reviewed. Today the patient is hypersomnolent during history taking and examination. She reports feeling better than yesterday. she sees nasal cannula oxygen helps her feel better. She does report feeling drowsy and slightly confused today. Rest of the ROS is negative Objective vital signs Vital Sign Date Time Temp Pulse Resp B/P (MAP) Pulse Ox O2 Delivery O2 Flow Rate FiO2 11/30/24 13:00 98.6 57 19 147/104 (118) 100 98.6 11/30/24 09:43 Nasal Cannula* 1 24 Total Intake and Output 11/29/24 11/29/24 11/30/24 15:00 23:00 07:00 Intake Total 250 ml 100 ml 950 ml Balance 250 ml 100 ml 950 ml medications Current Medications Medications Dose Ordered Sig/Juancarlos Route Start Time Stop Time Status Last Admin Dose Admin Albuterol 2.5 mg Q4HPRN PRN NEB 11/29/24 04:15 Ipratropium [place] 0.5 mg Q4HPRN PRN NEB 11/29/24 04:15 Sodium Chloride 10 ml Q8HR IV 11/29/24 06:00 11/30/24 14:00 10 ML Acetaminophen/ Hydrocodone Bitart 1 tab Q4HP PRN PO 11/29/24 04:15 11/29/24 17:42 1 TAB Ondansetron HCl 4 mg Q4HP PRN IV 11/29/24 04:15 Docusate Sodium 100 mg BIDPRN PRN PO 11/29/24 04:15 Acetaminophen 650 mg Q6HP PRN PO 11/29/24 04:15 Ceftriaxone Sodium 50 ml @ 100 mls/hr DAILY@09 IV 11/30/24 09:00 11/30/24 11:06 100 MLS/HR Azithromycin 250 ml @ 125 mls/hr DAILY IV 11/30/24 10:00 11/30/24 12:22 125 MLS/HR Methylprednisolone Sodium Succinate 40 mg Q8HR IV 11/29/24 14:00 11/30/24 15:35 40 MG Famotidine 20 mg Q12HR IV 11/29/24 10:00 11/30/24 11:06 20 MG Nitroglycerin 0.4 mg Q5MINP PRN SL 11/29/24 04:45 Morphine Sulfate 2 mg Q30M PRN IV 11/29/24 04:45 Acetaminophen/ Hydrocodone Bitart 2 tab Q4HPRN PRN PO 11/29/24 23:00 11/30/24 11:24 2 TAB Examination Pt is lying on bed General Appearance: Alert, Oriented X3, Cooperative, Not in acute distress HEENT: Atraumatic, Mucous membranes moist/pink; patient has nasal cannula, on 1 L of oxygen Respiratory: Clear to auscultation, Normal air movement, No added sounds Cardiovascular: Regular rate, Normal S1, Normal S2, No murmurs Abdominal: Active bowel sounds, Soft, no distention, no tenderness Extremities: No edema, Normal pulses, No tenderness/swelling Skin: No Significant rash, except past surgical scars Neuro: Normal speech, sensorimotor deficits none Psych/Mental Status: Mental status NL, Mood NL Nurse was there as a/c tech during examination laboratory and microbiology Laboratory Tests 11/30/24 06:54 Test 11/30/24 06:54 Range/Units Serum Glucose 146 H 74-106 mg/dL Microbiology Date/Time Source Procedure Growth Status 11/28/24 21:46 Blood Blood Culture - Preliminary NO GROWTH AFTER 24 HOURS OF INCUBATION. Resulted Labs and/or images reviewed: Labs reviewed by me, Image(s) reviewed by me Problem List/Assessment/Plan Problem List/Assessment/Plan # acute Gram- positive/ Gram-negative pneumonia # acute on chronic hypoxic respiratory failure likely due to above # Lymphadenopathy likely reactive/ malignancy to be ruled out outpatient basis -Rapid influenza and COVID test negative -patient is currently on oxygen NC - Nebulization Albuterol 2.5 mg q.4 PRN - Nebulization ipratropium bromide 0.5 mg q.4 PRN - methylprednisolone 40 mg IV Q 8 - azithromycin and ceftriaxone has been started - chest x-ray normal - CT shows right hilar lymphadenopathy; Scarring in the lungs which could be related to previous infection # PAH -CT chest: Enlarged main pulmonary artery measuring 4.7 cm which can be seen in pulmonary arterial hypertension -echo, pending # Mild YOKO likely VMN - monitor lab # cholelithiasis -As seen in CT chest -Outpatient follow-up # hx of chronic pancreatitis/ pseudocyst -monitor labs -outpatient followup GI prophylaxis: Not indicated DVT prophylaxis: Lovenox 40 mg sc Diet: Regular Goals of care discussed with the patient for more than 27 minutes: Full code status Case discussed with Dr. Landa patient and nurse. Plan discussed with: Patient, Other (rn) Date of Service: Nov 30, 2024 Billing Provider: ADILIA LANDA MD Common Visit Codes: [id number] INP/OBS CARE(HIGH) NIKI THOMAS RESIDENT Nov 30, 2024 15:50 DEISY HINTON RESIDENT Nov 30, 2024 16:26 ADILIA LANDA MD Nov 30, 2024 19:47
[2024-11-30] MEDS: ENOXAPARIN SOD 40 MG/0.4 ML SYRINGE SC ONE (16:00)
[2024-11-30] MEDS: LORazepam 0.5 MG TAB PO PRN (17:19)
[2024-12-01] VITALS (10 sets, daily range): BP systolic 130–154; BP diastolic 72–102; PULSE 55–82; RESP 14–18; TEMP 97.5–98.8; O2SAT 94–100
[2024-12-01 07:24] LABS: Calcium 9.9 mg/dL (8.7-10.4); Chloride 103 mmol/L (98-107); Potassium 4.7 mmol/L (3.5-5.1); Sodium 141 mmol/L (136-145)
[2024-12-01 07:25] LABS: Anion Gap 9 (5-15); Carbon Dioxide 29 mmol/L (20-31)
[2024-12-01 07:31] LABS: BUN/Creatinine Ratio 21.1 (10.0-20.0); Blood Urea Nitrogen 26 mg/dL (9-23); Glucose 110 mg/dL (74-106)
[2024-12-01] MEDS: ENOXAPARIN SOD 40 MG/0.4 ML SYRINGE SC SCH (09:58)
[2024-12-01 11:41] LABS: Free T4 (Free Thyroxine) 0.63 ng/dL (0.89-1.76)
--- NOTE | 2024-12-01 13:21 | DVHPN2 ---
Progress Note - Dictate Date Seen: Dec 01, 2024 Has the PT tested + for MRSA If YES, has PT been informed?: No Medical Necessity Reason Pt with a Central, PICC or Fol: No vital signs Vital Sign Date Time Temp Pulse Resp B/P (MAP) Pulse Ox O2 Delivery O2 Flow Rate FiO2 12/01/24 08:38 98.8 60 16 154/102 (119) 99 98.8 12/01/24 06:17 Room Air 12/01/24 06:17 0 N/A Total Intake and Output 11/30/24 11/30/24 12/01/24 15:00 23:00 07:00 Intake Total 300 ml 1000 ml 600 ml Balance 300 ml 1000 ml 600 ml medications Current Medications Medications Dose Ordered Sig/Juancarlos Route Start Time Stop Time Status Last Admin Dose Admin Albuterol 2.5 mg Q4HPRN PRN NEB 11/29/24 04:15 Ipratropium [place] 0.5 mg Q4HPRN PRN NEB 11/29/24 04:15 Sodium Chloride 10 ml Q8HR IV 11/29/24 06:00 12/01/24 05:31 10 ML Acetaminophen/ Hydrocodone Bitart 1 tab Q4HP PRN PO 11/29/24 04:15 11/29/24 17:42 1 TAB Ondansetron HCl 4 mg Q4HP PRN IV 11/29/24 04:15 Docusate Sodium 100 mg BIDPRN PRN PO 11/29/24 04:15 Acetaminophen 650 mg Q6HP PRN PO 11/29/24 04:15 Ceftriaxone Sodium 50 ml @ 100 mls/hr DAILY@09 IV 11/30/24 09:00 12/01/24 09:00 100 MLS/HR Azithromycin 250 ml @ 125 mls/hr DAILY IV 11/30/24 10:00 11/30/24 12:22 125 MLS/HR Methylprednisolone Sodium Succinate 40 mg Q8HR IV 11/29/24 14:00 12/01/24 05:31 40 MG Famotidine 20 mg Q12HR IV 11/29/24 10:00 12/01/24 09:58 20 MG Nitroglycerin 0.4 mg Q5MINP PRN SL 11/29/24 04:45 Morphine Sulfate 2 mg Q30M PRN IV 11/29/24 04:45 Acetaminophen/ Hydrocodone Bitart 2 tab Q4HPRN PRN PO 11/29/24 23:00 12/01/24 00:39 2 TAB Enoxaparin Sodium 40 mg DAILY SC 12/01/24 10:00 12/01/24 09:58 40 MG Lorazepam 0.5 mg Q6HP PRN PO 11/30/24 16:30 11/30/24 17:19 0.5 MG Levothyroxine Sodium 25 mcg QAM@0600 PO 12/02/24 06:00 laboratory and microbiology Laboratory Tests 12/01/24 05:50 11/30/24 06:54 Test 12/01/24 05:50 Range/Units Serum Glucose 110 H 74-106 mg/dL Assessment/Plan Acute hypoxemic respiratory failure Bilateral hilar lymphadenopathy Acute bronchitis/pneumonia Hx of COVID Patient seen and examined Events Low oxygen requirements On room air No distress CT chest reviewed 1. Right hilar lymphadenopathy. 2. Scarring in the lungs which could be related to previous infection. No suspicious lung nodule or confluence airspace disease however clinical correlation for any ongoing infection is recommended. 3. Enlarged main pulmonary artery measuring 4.7 cm which can be seen in pulmonary arterial hypertension. Correlation with echocardiogram recommended. 4. Enlarged liver and spleen. Correlation for underlying systemic process recommended. 5. Gallstones. Management Supplemental oxygen as needed Titrate to maintain sats 90% or above Incentive spirometry Continue antibiotics F/u cultures Bronchodilators Monitor renal function Monitor electrolytes Supplement as needed Patient would benefit from outpatient pulmonary follow up DVT prophylaxis Plan discussed with: Patient CORY SOL MD Dec 01, 2024 13:21
[2024-12-01] MEDS: LEVOTHYROXINE SODIUM 25 MCG TAB PO ONE (13:25)
--- NOTE | 2024-12-01 14:14 | DVHPNRES ---
Progress Note Date Seen: Dec 01, 2024 Resident Creating Document: NIKI THOMAS RESIDENT Has the PT tested + for MRSA If YES, has PT been informed?: No Medical Necessity Reason Pt with a Central, PICC or Fol: No Subjective Review of Systems 44-year-old female with past medical history of anxiety, liver disease and hypertension presented to the emergency department with complaints of shortness of Breath. Patient reports she has been having it for the past 2 weeks, but symptoms increased in the past 2 days were she had wheezing, hypoxia, cough with greenish sputum chest pain which was about 5/ 10 in intensity, right arm pain radiating to her hands, which prompted her to this visit. She complains that it is associated with dizziness, disorientation, blurred vision and her child has told her on several occasions that which he says is making no sense. Patient gives history that she has had chronic pneumonia infections over the past year. she reports that she was given home oxygen before and had not required it until 2 days ago when she needed 1-2 L of oxygen that she had at home to feel better. patient denies any recent travel or sick contacts. 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 PMH: Anxiety, hypertension, liver disease, gallstone PSH: Family history: Reviewed, noncontributory to the management of this case Past social history: The patient lives at home, denies smoking, reports she took alcohol before but quit in 2021 and does not take it anymore and denies any drug abuse. Allergies: None ROS: The patient was seen and examined by me in the bedside. Overnight events were reviewed. Today the patient seems anxious would say she is feeling much better than she did yesterday. Today the patient is hypersomnolent during history taking and examination. She reports feeling better than yesterday. she sees nasal cannula oxygen helps her feel better. She does report feeling drowsy and slightly confused today. Rest of the ROS is negative Objective vital signs Vital Sign Date Time Temp Pulse Resp B/P (MAP) Pulse Ox O2 Delivery O2 Flow Rate FiO2 12/01/24 13:00 97.6 72 14 145/99 (114) 98 97.6 12/01/24 06:17 Room Air 12/01/24 06:17 0 N/A Total Intake and Output 11/30/24 11/30/24 12/01/24 15:00 23:00 07:00 Intake Total 300 ml 1000 ml 600 ml Balance 300 ml 1000 ml 600 ml medications Current Medications Medications Dose Ordered Sig/Juancarlos Route Start Time Stop Time Status Last Admin Dose Admin Albuterol 2.5 mg Q4HPRN PRN NEB 11/29/24 04:15 Ipratropium [place] 0.5 mg Q4HPRN PRN NEB 11/29/24 04:15 Sodium Chloride 10 ml Q8HR IV 11/29/24 06:00 12/01/24 05:31 10 ML Acetaminophen/ Hydrocodone Bitart 1 tab Q4HP PRN PO 11/29/24 04:15 11/29/24 17:42 1 TAB Ondansetron HCl 4 mg Q4HP PRN IV 11/29/24 04:15 Docusate Sodium 100 mg BIDPRN PRN PO 11/29/24 04:15 Acetaminophen 650 mg Q6HP PRN PO 11/29/24 04:15 Ceftriaxone Sodium 50 ml @ 100 mls/hr DAILY@09 IV 11/30/24 09:00 12/01/24 09:00 100 MLS/HR Azithromycin 250 ml @ 125 mls/hr DAILY IV 11/30/24 10:00 12/01/24 13:25 125 MLS/HR Methylprednisolone Sodium Succinate 40 mg Q8HR IV 11/29/24 14:00 12/01/24 05:31 40 MG Famotidine 20 mg Q12HR IV 11/29/24 10:00 12/01/24 09:58 20 MG Nitroglycerin 0.4 mg Q5MINP PRN SL 11/29/24 04:45 Morphine Sulfate 2 mg Q30M PRN IV 11/29/24 04:45 Acetaminophen/ Hydrocodone Bitart 2 tab Q4HPRN PRN PO 11/29/24 23:00 12/01/24 00:39 2 TAB Enoxaparin Sodium 40 mg DAILY SC 12/01/24 10:00 12/01/24 09:58 40 MG Lorazepam 0.5 mg Q6HP PRN PO 11/30/24 16:30 12/01/24 13:35 0.5 MG Levothyroxine Sodium 25 mcg QAM@0600 PO 12/02/24 06:00 Examination Pt is lying on bed General Appearance: Alert, Oriented X3, Cooperative, Not in acute distress HEENT: Atraumatic, Mucous membranes moist/pink; patient has nasal cannula, on 2 L of oxygen Respiratory: Clear to auscultation, Normal air movement, No added sounds Cardiovascular: Regular rate, Normal S1, Normal S2, No murmurs Abdominal: Active bowel sounds, Soft, no distention, no tenderness Extremities: No edema, Normal pulses, No tenderness/swelling Skin: No Significant rash, except past surgical scars Neuro: Normal speech, sensorimotor deficits none Psych/Mental Status: Mental status NL, Mood NL Nurse was there as sales utility representative during examination laboratory and microbiology Laboratory Tests 12/01/24 05:50 11/30/24 06:54 Test 12/01/24 05:50 Range/Units Serum Glucose 110 H 74-106 mg/dL Microbiology Date/Time Source Procedure Growth Status 11/28/24 21:46 Blood Blood Culture - Preliminary NO GROWTH AFTER 48 HOURS OF INCUBATION. Resulted Labs and/or images reviewed: Labs reviewed by me, Image(s) reviewed by me Problem List/Assessment/Plan Problem List/Assessment/Plan # Acute Gram- positive/ Gram-negative pneumonia # Acute on chronic hypoxic respiratory failure likely due to above # Lymphadenopathy likely reactive/ malignancy to be ruled out outpatient basis -Rapid influenza and COVID test negative -patient is currently on oxygen [place] - Nebulization Albuterol 2.5 mg q.4 PRN - Nebulization ipratropium bromide 0.5 mg q.4 PRN - methylprednisolone 40 mg IV Q 8 changed to prednisolone 40 mg OD - azithromycin and ceftriaxone has been started - chest x-ray normal - blood and sputum culture, pending - CT shows right hilar lymphadenopathy; Scarring in the lungs which could be related to previous infection - Pulmonary consult suggest: Supplemental oxygen as needed, Titrate to maintain sats 90% or above # PAH -CT chest: Enlarged main pulmonary artery measuring 4.7 cm which can be seen in pulmonary arterial hypertension -echo, pending # Mild YOKO likely VMN - monitor lab # cholelithiasis -As seen in CT chest -Outpatient follow-up # hx of chronic pancreatitis/ pseudocyst -monitor labs -outpatient followup GI prophylaxis: Not indicated DVT prophylaxis: Lovenox 40 mg sc Diet: Regular Goals of care discussed with the patient for more than 27 minutes: Full code status Case discussed with Dr. Landa, patient and nurse. Plan discussed with: Patient, Other (rn) My Orders My Orders Orders - NIKI THOMAS Procedure Category Date Status Time Enoxaparin Sodium PHA 12/01/24 In Process (Lovenox) 10:00 Date of Service: Dec 01, 2024 Billing Provider: ADILIA LANDA MD Common Visit Codes: [id number] INP/OBS CARE(HIGH) NIKI THOMAS Dec 01, 2024 14:14 ADILIA LANDA MD Dec 01, 2024 18:22
[2024-12-01] MEDS: predniSONE 20 MG TAB PO ONE (16:00)
--- NOTE | 2024-12-01 17:35 | ECG ---
[facility] Test Date: 2024-11-28 Test Time: 21:44:39 Pat Name: SAMIR KIRKLAND Department: ER Room: [facility] Gender: F [employer]: : 1980 Requested By: VICENTA CARMONA Order Number: [id number] Reading MD: Edenilson Hoover Measurements Intervals Miles Rate: 71 P: 48 TX: 155 QRS: 67 QRSD: 104 T: 47 QT: 394 QTc: 429 Interpretive Statements Sinus rhythm Electronically Signed On 12-02-2024 15:52:31 PDT by Edenilson Hoover Please click the below link to view image of tracing.
[2024-12-01] MEDS: diphenhdrAMINE HCL 50 MG/1 ML VL IV PRN (18:03)
[2024-12-02] VITALS (10 sets, daily range): BP systolic 126–139; BP diastolic 91–102; PULSE 54–69; RESP 14–18; TEMP 97.9–98.4; O2SAT 94–97
[2024-12-02] MEDS: LEVOTHYROXINE SODIUM 25 MCG TAB PO SCH (05:21)
[2024-12-02] MEDS: predniSONE 20 MG TAB PO SCH (09:26)
--- NOTE | 2024-12-02 09:26 | DVHSR ---
APPROVED REPORT EXAM: Two-dimensional and M-mode echocardiogram with Doppler, color Doppler and Bubble Study. Blood Pressure: 130/72 mmHg INDICATION ? PAH RISK FACTORS Height: 5'5", Weight: 165 DIMENSIONS LVDd5.2 (3.8-5.7cm)LA (2D)3.8 (1.9-4.0cm)Aortic Root3.2 (2.0-3.7cm) LVDs3.1 (2.5-4.0cm)LA (MM) (1.9-4.0cm)Aortic Cusp Exc2.1 (1.5-2.0cm) EF (%) 70.0 (55-70%)Rt. Atrium5.2 (1.9-4.0cm)Asc. Aorta2.9 cm IVSd0.9 (0.7-1.1cm)RV (D)4.8 (1.8-2.4cm) PWd0.6 (0.7-1.1cm) Mitral Valve MitralMitral Stenosis E wave0.92m/sMV Mean GR.mmHg A wave0.61m/sMV Peak GR.mmHg E/A ratio1.52D MVAcm2 DECEL [id number] 1/2 Timems Aortic Valve Aortic ValveAortic Stenosis V11.04m/Marcelo Mean GR.4mmHg V21.28m/Marcelo Peak GR.7mmHg LVOT Diameter2.2 (1.8-2.4cm)Doppler AVA3.09cm2 Pulmonic Valve V20.92m/s Tricuspid Valve TR Velocity2.60m/s [id number] ATRIA Injection of bubbles documented no interatrial shunt. Other Information Quality : Technically LimitedRhythm : Technically limited study due to body habitus. Conclusion LV EF IS 70% AND IS NORMAL SLIGHTLY DILATED RV NORMAL VALVES NO EFFUSION NORMAL RVSP
[2024-12-02 10:10] LABS: Base Excess 1.4 mmol/L (-2.0-3.0)
[2024-12-02 13:07] LABS: Anti-Centromere B Antibody <0.2 AI (0.0-0.9); Anti-Jo-1 Antibody <0.2 AI (0.0-0.9); Anti-dsDNA Antibody <1 IU/mL (0-9); Antichromatin Antibody <0.2 AI (0.0-0.9); Antiscleroderma-70 Antibody <0.2 AI (0.0-0.9); Sjogren's Anti-SS-A Antibody <0.2 AI (0.0-0.9); Sjogren's Anti-SS-B Antibody <0.2 AI (0.0-0.9)
--- NOTE | 2024-12-02 14:25 | DVHPN2 ---
Progress Note - Dictate Date Seen: Dec 02, 2024 Has the PT tested + for MRSA If YES, has PT been informed?: No Medical Necessity Reason Pt with a Central, PICC or Fol: No vital signs Vital Sign Date Time Temp Pulse Resp B/P (MAP) Pulse Ox O2 Delivery O2 Flow Rate FiO2 12/02/24 13:00 98.4 69 18 134/95 (108) 97 98.4 12/02/24 08:51 Nasal Cannula* 2 28 Total Intake and Output 12/01/24 12/01/24 12/02/24 15:00 23:00 07:00 Intake Total 50 ml 800 ml 450 ml Balance 50 ml 800 ml 450 ml medications Current Medications Medications Dose Ordered Sig/Juancarlos Route Start Time Stop Time Status Last Admin Dose Admin Albuterol 2.5 mg Q4HPRN PRN NEB 11/29/24 04:15 Ipratropium [place] 0.5 mg Q4HPRN PRN NEB 11/29/24 04:15 Sodium Chloride 10 ml Q8HR IV 11/29/24 06:00 12/02/24 05:23 10 ML Acetaminophen/ Hydrocodone Bitart 1 tab Q4HP PRN PO 11/29/24 04:15 11/29/24 17:42 1 TAB Ondansetron HCl 4 mg Q4HP PRN IV 11/29/24 04:15 Docusate Sodium 100 mg BIDPRN PRN PO 11/29/24 04:15 Acetaminophen 650 mg Q6HP PRN PO 11/29/24 04:15 Ceftriaxone Sodium 50 ml @ 100 mls/hr DAILY@09 IV 11/30/24 09:00 12/02/24 09:00 100 MLS/HR Azithromycin 250 ml @ 125 mls/hr DAILY IV 11/30/24 10:00 Hold 12/01/24 13:25 125 MLS/HR Famotidine 20 mg Q12HR IV 11/29/24 10:00 12/02/24 10:24 20 MG Nitroglycerin 0.4 mg Q5MINP PRN SL 11/29/24 04:45 Morphine Sulfate 2 mg Q30M PRN IV 11/29/24 04:45 Acetaminophen/ Hydrocodone Bitart 2 tab Q4HPRN PRN PO 11/29/24 23:00 12/02/24 00:57 2 TAB Enoxaparin Sodium 40 mg DAILY SC 12/01/24 10:00 12/02/24 09:26 40 MG Lorazepam 0.5 mg Q6HP PRN PO 11/30/24 16:30 12/01/24 21:50 0.5 MG Levothyroxine Sodium 25 mcg QAM@0600 PO 12/02/24 06:00 12/02/24 05:21 25 MCG Prednisone 40 mg DAILY PO 12/02/24 10:00 12/02/24 09:26 40 MG Diphenhydramine HCl 25 mg Q4HP PRN IV 12/01/24 17:30 12/02/24 07:49 25 MG laboratory and microbiology Laboratory Tests 12/01/24 05:50 11/30/24 06:54 Test 12/01/24 05:50 Range/Units Serum Glucose 110 H 74-106 mg/dL Assessment/Plan Acute hypoxemic respiratory failure Bilateral hilar lymphadenopathy Acute bronchitis/pneumonia Hx of COVID Patient seen and examined Events Low oxygen requirements On room air No acute events CT chest reviewed 1. Right hilar lymphadenopathy. 2. Scarring in the lungs which could be related to previous infection. No suspicious lung nodule or confluence airspace disease however clinical correlation for any ongoing infection is recommended. 3. Enlarged main pulmonary artery measuring 4.7 cm which can be seen in pulmonary arterial hypertension. Correlation with echocardiogram recommended. 4. Enlarged liver and spleen. Correlation for underlying systemic process recommended. 5. Gallstones. Management Supplemental oxygen as needed Titrate to maintain sats 90% or above Incentive spirometry Continue antibiotics F/u cultures Bronchodilators Monitor renal function Monitor electrolytes Supplement as needed Patient would benefit from outpatient pulmonary follow up DVT prophylaxis Plan discussed with: Patient CORY SOL MD Dec 02, 2024 14:25
--- NOTE | 2024-12-02 15:15 | DVHDSRES ---
Discharge Summary Date of Admission Resident Creating Document: NIKI THOMAS RESIDENT Nov 29, 2024 at 04:36 Date of Discharge: Dec 02, 2024 Admitting Diagnosis # Acute on chronic hypoxic respiratory failure likely due to Acute Gram- positive/ Gram-negative pneumonia Labs/Diagnostic Data: Laboratory Results Test 12/02/24 10:02 12/01/24 10:51 12/01/24 05:50 11/30/24 08:34 Blood Gas Specimen Type Arterial Blood Gas Sample Site Right radial Blood Gas Patient Temperature 37.0 Arterial Blood Date Drawn [id number] Arterial Blood pH 7.427 (7.350-7.450) Arterial Blood Partial Pressure CO2 40.0 mmHg (32.0-45.0) Arterial Blood Partial Pressure O2 59.6 mmHg (83.0-108.0) Arterial Blood HCO3 25.8 mmol/L (21.0-28.0) Arterial Blood Oxygen Saturation 90.6 % (94.0-98.0) Arterial Blood Base Excess 1.4 mmol/L (-2.0-3.0) Arterial Blood Oxyhemoglobin 89.9 % (94.0-98.0) Arterial Blood Carboxyhemoglobin 0.7 % (0.5-1.5) Arterial Blood Methemoglobin 0.1 % (0.0-1.5) Evan Test Yes Blood Gas Total Hemoglobin 12.60 g/dL (12.0-16.0) Blood Gas Liter Flow 0.00 Blood Gas Modality Room air FiO2 % 21.0 Free Thyroxine (T4) Calculated 0.63 ng/dL (0.89-1.76) Total Triiodothyronine (TT3) 0.41 ng/mL (0.60-1.81) Anti-Nuclear Antibody Comment Comment (.) GRETCHEN-1 Antibody <0.2 AI (0.0-0.9) SS-A/Ro Antibody <0.2 AI (0.0-0.9) SS-B/La Antibody <0.2 AI (0.0-0.9) Sm Antibody <0.2 AI (0.0-0.9) FRAME AND SCRAP CRUSHER Antibody <0.2 AI (0.0-0.9) Scl-70 (Scleroderma) Antibody <0.2 AI (0.0-0.9) Anti-Double Strand DNA Antibody <1 IU/mL (0-9) Chromatin Antibody <0.2 AI (0.0-0.9) Centromere B Antibody <0.2 AI (0.0-0.9) HIV (1&2) Antibody Negative (Negative) Sodium Level 141 mmol/L (136-145) Potassium Level 4.7 mmol/L (3.5-5.1) Chloride Level 103 mmol/L (98-107) Carbon Dioxide Level 29 mmol/L (20-31) Anion Gap 9 (5-15) Blood Urea Nitrogen 26 mg/dL (9-23) Creatinine 1.23 mg/dL (0.550-1.02) Glomerular Filtration Rate Calc 56 mL/min (>90) BUN/Creatinine Ratio 21.1 (10.0-20.0) Serum Glucose 110 mg/dL (74-106) Calcium Level 9.9 mg/dL (8.7-10.4) Urine Test Negative (Negative) Test 11/30/24 08:27 11/30/24 06:54 11/29/24 14:25 11/29/24 11:00 Urine Color Light-yellow (Yellow) Urine Clarity Turbid (Clear) Urine pH 6.0 (5.0-9.0) Urine Specific [place] 1.019 (1.001-1.035) Urine Protein Negative (Negative) Urine Ketones Negative (Negative) Urine Blood 2+ /uL (Negative) Urine Nitrite Negative (Negative) Urine Bilirubin Negative (Negative) Urine Urobilinogen Normal mg/dL (Negative) Urine Leukocyte Esterase Negative /uL (Negative) Urine RBC 1 /hpf (0 - 4) Urine Microscopic WBC 1 /HPF (0-5) Urine Squamous Epithelial Cells Mod /hpf (<5) Urine Bacteria Few /hpf (None Seen) Urine Mucus Few (None Seen) Urine Glucose Normal mg/dL (Normal) B-Type Natriuretic Peptide 241.75 pg/mL (0-100) Thyroid Stimulating Hormone (TSH) 0.61 uIU/mL (0.55-4.78) White Blood Count 7.5 10^3/uL (4.4-10.8) Red Blood Count 4.00 10^6/uL (4.0-5.20) Hemoglobin 12.2 g/dL (12.2-16.2) Hematocrit 36.9 % (36.0-46.0) Mean Corpuscular Volume 92.2 fL (80.0-100.0) Mean Corpuscular Hemoglobin 30.5 pg (28.0-32.0) Mean Corpuscular Hemoglobin Concent 33.1 g/dL (32.0-36.0) Red Cell Distribution Width 15.2 % (11.8-14.3) Platelet Count 118 10^3/uL (140-450) Mean Platelet Volume 9.1 fL (6.9-10.8) Neutrophils (%) (Auto) 91.4 % (37.0-80.0) Lymphocytes (%) (Auto) 5.7 % (10.0-50.0) Monocytes (%) (Auto) 2.8 % (0.0-12.0) Eosinophils (%) (Auto) 0.0 % (0.0-7.0) Basophils (%) (Auto) 0.1 % (0.0-2.0) Neutrophils # (Auto) 6.8 10 ^3/uL (1.6-8.6) Lymphocytes # (Auto) 0.4 10 ^3/uL (0.4-5.4) Monocytes # (Auto) 0.2 10 ^3/uL (0-1.3) Eosinophils # (Auto) 0 10 ^3/uL (0-0.8) Basophils # (Auto) 0 10 ^3/uL (0-0.2) Nucleated Red Blood Cells 0.0 % Total Bilirubin 0.2 mg/dL (0.2-1.0) Aspartate Amino Transferase (AST) 19 U/L (13-40) Alanine Aminotransferase (ALT) 13 U/L (7-40) Alkaline Phosphatase 66 U/L (46-116) Total Protein 6.4 g/dL (5.7-8.2) Albumin 3.9 g/dL (3.2-4.8) D-Dimer, Quantitative 0.35 mg/L FEU (0.0-0.49) Urine Opiates Screen Neg (NEGATIVE) Urine Fentanyl Screen Neg (NEGATIVE) Urine Barbiturates Screen Neg (NEGATIVE) Urine Phencyclidine Screen Neg (NEGATIVE) Urine Amphetamines Screen Neg (NEGATIVE) Urine Benzodiazepines Screen Neg (NEGATIVE) Urine Cocaine Screen Neg (NEGATIVE) Urine Cannabinoids Screen Neg (NEGATIVE) Test 11/29/24 05:51 11/29/24 00:19 11/28/24 21:46 Influenza Type A Antigen Negative (Negative) Influenza Type B Antigen Negative (Negative) SARS-CoV-2 Antigen (Rapid) Negative (NEGATIVE) Troponin I High Sensitivity < 3 ng/L (</=34) Prothrombin Time 10.3 sec (9.3-11.8) Prothrombin Time INR 0.97 (0.9-1.15) Activated Partial Thromboplast Time 28.2 SEC (24.5-34.5) Lactic Acid Level 0.6 mmol/L (0.4-2.0) Other Laboratory Tests 12/01/24 05:50 11/30/24 06:54 Brief Hx & Hospital Course: 44-year-old female with past medical history of anxiety, liver disease and hypertension presented to the emergency department with complaints of shortness of Breath. Patient reports she has been having it for the past 2 weeks, but symptoms increased in the past 2 days were she had wheezing, hypoxia, cough with greenish sputum chest pain which was about 5/ 10 in intensity, right arm pain radiating to her hands, which prompted her to this visit. She complains that it is associated with dizziness, disorientation, blurred vision and her child has told her on several occasions that which he says is making no sense. Patient gives history that she has had chronic pneumonia infections over the past year. she reports that she was given home oxygen before and had not required it until 2 days ago when she needed 1-2 L of oxygen that she had at home to feel better. patient denies any recent travel or sick contacts. 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 brief history of hospitalization Patient had acute on chronic hypoxic respiratory failure likely due to Gram- positive /Gram-negative pneumonia. she has hilar lymphadenopathy likely reactive/malignancy to be ruled out it on outpatient basis. The rapid influenza and COVID test came back negative. chest x-ray was normal and CT showed right hilar lymphadenopathy, scarring in the lungs which could be related to previous infection. We administered oxygen 2 L by nasal cannula to the patient and gave her nebulization albuterol 2.5 mg q.4 PRN, nebulization ipratropium bromide 0.5 mg q.4 PRN, methylprednisolone 40 mg IV q.8 which was later changed to prednisolone 40 mg OD, azithromycin and ceftriaxone. A pulmonary consult was done and they suggested supplemental oxygen as needed and to titrate to maintain saturation over 90%. For patient's pH was chest CT showed enlarged main pulmonary artery measuring 4.7 cm which can be seen in pulmonary arterial hypertension. We ordered an echo which showed normal valves, no effusion, left ventricular ejection fraction of 70% and slightly dilated right ventricle. lab showed a normal TSH of 0.61, but her free T4 was 0.63 and total T3 was 0.41, both of which was low. we are discharging her on levothyroxine 25 mcg in counseled her regarding her diagnosis and asked her to follow up with her PCP. For patient's mild YOKO likely VMN, we monitored her labs and for cholelithiasis which was also seen in CT chest we have asked the patient to follow up outpatient full. History of chronic pancreatitis / pseudocyst for which we monitored labs and have asked her to follow up outpatient. Patient has now stable for discharge. We did an ABG on her and results were normal with PO2 59.6. We have counseled the patient that she will not be needing home oxygen for which she was concerned. She has communicated understanding regarding it. Patient has also been counseled regarding the need of continuation of antibiotics and the need for a repeat CT in 6 months for her hilar mass to rule out cancer. Patient has made a note to repeat the CT in 6 months and communicated understanding as well. We are discharging her on Augmentin and doxycycline as well as levothyroxine. Side effects of the medicines have been told to her and I have asked her follow up with her PCP and discharge clinic on Saturday with Dr. Sifuentes. She has also been counseled to continue home medications. Patient communicates understanding. Pt is lying on bed General Appearance: Alert, Oriented X3, Cooperative, Not in acute distress HEENT: Atraumatic, Mucous membranes moist/pink Respiratory: Clear to auscultation, Normal air movement, No added sounds Cardiovascular: Regular rate, Normal S1, Normal S2, No murmurs Abdominal: Active bowel sounds, Soft, no distention, no tenderness Extremities: No edema, Normal pulses, No tenderness/swelling Skin: No Significant rash, except past surgical scars Neuro: Normal speech, sensorimotor deficits none Psych/Mental Status: Mental status NL, Mood NL Nurse was there as ward attendant during examination Operations or Procedures CHEST RADIOGRAPH IMPRESSION: No radiographic evidence of acute cardiopulmonary process. Procedure: CT CHEST WITHOUT CONTRAST IMPRESSION: 1. Right hilar lymphadenopathy. Findings could be related to sequelae of a recent lung infection alternatively can be seen in setting such as sarcoidosis. 2. Scarring in the lungs which could be related to previous infection. No suspicious lung nodule or confluence airspace disease however clinical correlation for any ongoing infection is recommended. 3. Enlarged main pulmonary artery measuring 4.7 cm which can be seen in pulmonary arterial hypertension. Correlation with echocardiogram recommended. 4. Enlarged liver and spleen. Correlation for underlying systemic process recommended. 5. Gallstones. HS:Y Radiation optimization: All CT scans at this facility use at least one of these dose optimization techniques: automated exposure control mA and/or kV adjustment per patient size (includes targeted exams where dose is matched to clinical indication) or iterative reconstruction. 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 Sifuentes Medications: Augmentin 875 mg and doxycycline 100 mg p.o. b.i.d. for 7 days Levothyroxine 25 mg p.o. 6:00 a.m. daily Hydroxyzine HCl 25 mg 1 tab PRN for 15 days Scheduled Amoxicillin & Pot Clavulanate (Augmentin Tablet), 875 MG PO BID Azithromycin (Zithromax Z-Rafiq), 250 MG PO DAILY Cephalexin (Keflex Capsule), 2 CAP PO BID Cyanocobalamin (B12), 1,000 MCG PO DAILY Doxycycline (Monohydrate) (Doxycycline), 100 MG PO BID Ergocalciferol (Vitamin D 61555 Unit), 50,000 UNIT PO Q7D Gabapentin (Gabapentin), 100 MG PO BID Levothyroxine Sodium (Levothyroxine Sodium), 25 MCG PO QAM Nitrofurantoin Monohydrate Mac (Macrobid), 100 MG PO BID Nitrofurantoin Monohydrate Mac (Macrobid), 100 MG PO BID Scheduled PRN Acetaminophen (Acetaminophen), 500 MG PO Q4HP PRN Hydroxyzine Hcl (Hydroxyzine Hcl), 1 TAB PO HSPRN PRN Tramadol Hcl (Tramadol Hcl), 50 MG PO Q8HP PRN Durable Medical Equipment Elastic Bandages & Supports (Hong Wrist Brace), UNIT XX DAILY, (DME) Discharge Statement: "Patient was advised to return to the ER or call 911 if any headaches, dizziness, shortness of breath, chest pain, abdominal pain, bleeding, fevers, or worsening of medical condition. Patient was counseled about treatment plan, medications, possible side effects, patientverbalized understanding. All questions were answered to the best of my ability. This discharge took greater then 30 minutes in planning, reviewing documentation, counseling the patient, and discussing with other team members." ASSESSMENT ASSESSMENT Assessment Date of Service: Dec 02, 2024 Billing Provider: ADILIA PARADA MD Common Visit Codes: 39121-CXB/OBS DISCH DAY >30min NIKI THOMAS RESIDENT Dec 02, 2024 15:15 ADILIA PARADA MD Dec 04, 2024 23:43
[2024-12-02] MEDS ORDERED: HYDR-3682 PO (15:29)
[2024-12-02] MEDS ORDERED: AUG875T PO (15:29)
[2024-12-02] MEDS ORDERED: DOXY1CAP58 PO (15:29)
[2024-12-02] MEDS ORDERED: LEVO25TA6 PO (15:36)
== END 2024-12-02 16:40 | disposition home or self-care (01) | DRG 177 ==
LOC: ER 21:11 → OVERFLOW 11-29 04:36 → TELE-WESTW 11-29 15:41 → WEST WING 12-02 07:40
PROVIDERS: ADMIT Internal Medicine; ATTEND Internal Medicine
DX: J15.69 Pneumonia due to other Gram-negative bacteria (principal); J96.21 Acute and chronic respiratory failure with hypoxia; N17.0 Acute kidney failure with tubular necrosis; J15.9 Unspecified bacterial pneumonia; J20.9 Acute bronchitis, unspecified; D69.6 Thrombocytopenia, unspecified; I27.21 Secondary pulmonary arterial hypertension; I10 Essential (primary) hypertension; Z20.822 Contact with and (suspected) exposure to COVID-19; K80.20 Calculus of gallbladder without cholecystitis without obstruction; F41.9 Anxiety disorder, unspecified; M79.602 Pain in left arm; M79.601 Pain in right arm; R59.0 Localized enlarged lymph nodes; Z79.899 Other long term (current) drug therapy; Z86.16 Personal history of COVID-19
CPT/HCPCS: 36415; 36600; 71045; 71250; 80048; 80053; 80307; 81001; 81025; 82805; 83516; 83520; 83605; 83880; 84439; 84443; 84480; 84484; 85025; 85379; 85610; 85730; 86225; 86235; 86256; 86703; 87040; 87426; 87804; 93005; 93306; 94640; G0378; J3490

== ENCOUNTER 2024-12-22 16:18 | Emergency (ER) | payer MEDICARE, OTHER ==
[~2024-12-22] VITALS: Ht 167.6 cm; Wt 71.0 kg
[~2024-12-22 16:18] MED LIST changes: +AUG875T PO; +DOXY1CAP58 PO; +HYDR-3682 PO; +LEVO25TA6 PO
--- NOTE | 2024-12-22 17:30 | ED.PDOC ---
HPI Comments 44 y/o F, with PMHx of anxiety, HTN, and liver disease presents to the ED for CC of chest pain. Patient initially checked into the ED for c/o animal bite to the 4th right finger x2days ago however, upon evaluation patient c/o new onset chest pain. Patient reports, chest pain to be substernal non-radiating and pressure like in nature. Patient comments, that she was previously seen for SS at [facility] approximately [id number] ago. Patient denies nausea, vomiting, headache, shortness of breath or palpitations. No other symptoms or modifiers are present at this time. Chief Complaint: Animal Bite Time Seen by MD: 17:20 Primary Care Provider: [facility] Reviewed Notes: Nurses Notes, Medications, Allergies Allergies: Coded Allergies: Azithromycin (Verified Allergy, Intermediate, swelling, flushed, tingly, 12/01/24) Home Meds Active Scripts Levothyroxine Sodium (Levothyroxine Sodium) 25 Mcg Tab, 25 MCG PO QAM for 30 Days, #30 TAB Prov:DEISY HINTON 12/02/24 Hydroxyzine Hcl (Hydroxyzine Hcl) 25 Mg Tab, 1 TAB PO HSPRN PRN for 15 Days, #15 TAB Prov:DEISY HINTON RESIDENT 12/02/24 Doxycycline (Monohydrate) (Doxycycline) 100 Mg Cap, 100 MG PO BID for 7 Days, #14 CAP Prov:DEISY HINTON RESIDENT 12/02/24 Amoxicillin & Pot Clavulanate (AUGMENTIN TABLET) 875 Mg Tb, 875 MG PO BID for 7 Days, #14 TAB Prov:DEISY HINTON 12/02/24 Nitrofurantoin Monohydrate Mac (Macrobid) 100 Mg Cap, 100 MG PO BID for 7 Days, #14 CAP Prov:LUPE BROWNEP 11/02/24 Elastic Bandages & Supports (Hong Wrist Brace) Mis, UNIT XX DAILY, #1 3 Refills Prov:VICENTA CARMONA MD 10/18/24 Nitrofurantoin Monohydrate Mac (Macrobid) 100 Mg Cap, 100 MG PO BID for 7 Days, #14 CAP Prov:LUPE BROWNE [employer] LICENSEE 05/11/24 Cyanocobalamin (B12) 1,000 Mcg Cap, 1000 MCG PO DAILY for 30 Days, #30 CAP Prov:JAQUELIN BLANCHARD [facility] [place] 02/18/24 Gabapentin (Gabapentin) 100 Mg Cap, 100 MG PO BID for 30 Days, #60 CAP Prov:JAQUELIN BLANCHARD [facility] [place] 02/18/24 Ergocalciferol (VITAMIN D 41054 UNIT) 50,000 [place], [address] UNIT PO Q7D for 90 Days, #12 CAP Prov:JAQUELIN BLANCHARD [facility] [place] 02/18/24 Cephalexin (KEFLEX CAPSULE) 250 Mg Cp, 2 CAP PO BID for 4 Days, #28 CAP Prov:JAQUELIN BLANCHARD [facility] [place] 02/18/24 Azithromycin (Zithromax Z-Rafiq) 250 Mg Tab, 250 MG PO DAILY for 4 Days, #4 TAB Prov:JAQUELIN BLANCHARD [facility] [place] 02/18/24 Tramadol Hcl (Tramadol Hcl) 50 Mg Tab, 50 MG PO Q8HP PRN for 5 Days, #15 TAB Prov:YOANA LANDA MD 04/07/23 Acetaminophen (Acetaminophen) 500 Mg Tab, 500 MG PO Q4HP PRN, #30 TAB Prov:WENCESLAO MCCLOUD PAC 04/03/23 Information Source: Patient Mode of Arrival: Ambulatory Severity: Moderate Timing: Minutes Duration: Since onset Location: Substernal Radiation: No Radiation Quality: Heavy Onset: At Rest Cardiac Risk Factors: HTN PE Risk Factors: None History of: None Modifying Factors: Nothing Associated Signs and Symptoms: None Past Medical History PAST MEDICAL HISTORY: Anxiety, HTN, Liver Surgical History: ELECTRONICS INSTRUCTOR History: No Pertinent ELECTRONICS INSTRUCTOR History Family History Family History: Unknown Social History Smoker: Non-Smoker Alcohol: Sober Drugs: Denies Drug Use Lives In: Home Constitutional: denies: chills, diaphoresis, fatigue, fever, malaise, sweats, weakness, others EENTM: denies: blurred vision, double vision, ear bleeding, ear discharge, ear drainage, ear pain, ear ringing, eye pain, eye redness, hearing loss, mouth pain, mouth swelling, nasal discharge, nose bleeding, nose congestion, nose pain, photophobia, tearing, throat pain, throat swelling, voice changes, others Respiratory: denies: cough, hemoptysis, orthopnea, SOB at rest, shortness of breath, SOB with excertion, stridor, wheezing, others Cardiovascular: reports: chest pain; denies: dizzy spells, diaphoresis, Dyspnea on exertion, edema, irregular heart beat, left arm pain, lightheadedness, palpitations, PND, syncope, others Gastrointestinal: denies: abdomen distended, abdominal pain, blood streaked bowels, constipated, diarrhea, dysphagia, difficulty swallowing, hematemesis, melena, nausea, poor appetite, poor fluid intake, rectal bleeding, rectal pain, vomiting, others Genitourinary: denies: abnormal vagina bleeding, burning, dyspareunia, dysuria, flank pain, frequency, hematuria, incontinence, pain, , vagina discharge, urgency, others Neurological: denies: dizziness, fainting, headache, left sided numbness, left sided weakness, numbness, paresthesia, pre-existing deficit, right sided numbness, right sided weakness, seizure, speech problems, tingling, tremors, weakness, others Musculoskeletal: denies: back pain, gout, joint pain, joint swelling, muscle pain, muscle stiffness, neck pain, others Integumetry: denies: bruises, change in color, change in hair/nails, dryness, laceration, lesions, lumps, rash, wounds, others Allergic/Immunocompromised: denies: Difficulty Healing, Frequent Infections, Hives, Itching, others Hematologic/Lymphatic: denies: anemia, blood clots, easy bleeding, easy bruising, swollen glands, others Endocrine: denies: excessive hunger, excessive sweating, excessive thirst, excessive urination, flushing, intolerance to cold, intolerance to heat, unexplained weight gain, unexplained weight loss, others Psychiatric: denies: anxiety, bipolar disorder, depression, hopeless, panic disorder, schizophrenia, sleepless, suicidal, others All Other Systems: Reviewed and Negative Physical Exam General Appearance: No Apparent Distress, Normal HEENT: Normal ENT Inspection, Pharynx Normal Neck: Full Range of Motion, Non-Tender, Normal, Normal Inspection Respiratory: Chest Non-Tender, Lungs Clear, No Accessory Muscle Use, No Respiratory Distress, Normal Breath Sounds Cardiovascular: No Edema, No Murmur, No Gallop, Normal Peripheral Pulses, Regular Rate/Rhythm Breast Exam: Deferred Gastrointestinal: No Organomegaly, Non Tender, No Pulsatile Mass, Normal Bowel Sounds, Soft Genitalia: Deferred Pelvic: Deferred Rectal: Deferred Extremities: No calf tenderness, Normal capillary refill, Normal inspection, Normal range of motion, Non-tender, No pedal edema Musculoskeletal : Apperance: Normal Neurologic: Alert, athletic gear custodian II-XII nml as Tested, No Motor Deficits, Normal Affect, Normal Mood, No Sensory Deficits Cerebellar Function: Normal Reflexes: Normal Skin: Dry, Normal Color, Warm Lymphatic: No Adenopathy Was a procedure done? Was a procedure done?: No CP Differential Dx Differential Diagnosis: Anxiety / Panic Attack Differential Diagnosis: Chest Wall Pain, Costochondritis, Esophageal reflux/spa sm, Gastritis X-Ray, Labs, Meds, VS Vital Signs Date Time Temp Pulse Resp B/P (MAP) Pulse Ox O2 Delivery O2 Flow Rate FiO2 12/22/24 16:19 97.8 72 13 141/96 98 97.8 Lab Test 12/22/24 18:06 Range/Units White Blood Count 6.4 4.4-10.8 10^3/uL Red Blood Count 4.13 4.0-5.20 10^6/uL Hemoglobin 11.9 L 12.2-16.2 g/dL Hematocrit 36.3 36.0-46.0 % Mean Corpuscular Volume 88.0 80.0-100.0 fL Mean Corpuscular Hemoglobin 28.7 28.0-32.0 pg Mean Corpuscular Hemoglobin Concent 32.6 32.0-36.0 g/dL Red Cell Distribution Width 15.1 H 11.8-14.3 % Platelet Count 176 140-450 10^3/uL Mean Platelet Volume 9.1 6.9-10.8 fL Neutrophils (%) (Auto) 66.4 37.0-80.0 % Lymphocytes (%) (Auto) 23.2 10.0-50.0 % Monocytes (%) (Auto) 8.4 0.0-12.0 % Eosinophils (%) (Auto) 1.1 0.0-7.0 % Basophils (%) (Auto) 0.9 0.0-2.0 % Neutrophils # (Auto) 4.2 1.6-8.6 10 ^3/uL Lymphocytes # (Auto) 1.5 0.4-5.4 10 ^3/uL Monocytes # (Auto) 0.5 0-1.3 10 ^3/uL Eosinophils # (Auto) 0.1 0-0.8 10 ^3/uL Basophils # (Auto) 0.1 0-0.2 10 ^3/uL Nucleated Red Blood Cells 0.0 % Sodium Level 137 136-145 mmol/L Potassium Level 4.2 3.5-5.1 mmol/L Chloride Level 108 H 98-107 mmol/L Carbon Dioxide Level 25 20-31 mmol/L Anion Gap 4 L 5-15 Blood Urea Nitrogen 13 9-23 mg/dL Creatinine 1.27 H 0.550-1.02 mg/dL Glomerular Filtration Rate Calc 54 >90 mL/min BUN/Creatinine Ratio 10.2 10.0-20.0 Serum Glucose 133 H 74-106 mg/dL Calcium Level 9.0 8.7-10.4 mg/dL Troponin I High Sensitivity < 3 L </=34 ng/L B-Type Natriuretic Peptide 119.23 0-100 pg/mL [place] [id number] Ph: [phone] DIAGNOSTIC IMAGING Diagnostic Imaging Report : [id number] Signed PATIENT: SAMIR KIRKLAND ACCT: [id number] UNIT: [id number] : 1980 LOC: ER ROOM / BED: / AGE / SEX: 44 / F ADM STATUS: REG ER SERVICE [id number] ORDERING PHYSICIAN: LUPE BROWNE PROCEDURE(s): CXR1 - CHEST XRAY 1 VIEW REASON: cp ORDER NUMBER(s): [id number], ACCESSION NUMBER(s): [id number] CHEST RADIOGRAPH REASON FOR EXAM: Chest pain COMPARISON: XY CHEST PORTABLE on DOS: 11/28/24, XY CHEST XRAY 1 VIEW on DOS: 02/17/24, XY CHEST TWO VIEWS ROUTINE on DOS: 04/03/23 TECHNIQUE: One view of the chest is provided FINDINGS: The cardiomediastinal silhouette is stable. There are low inspiratory volumes causing crowding and exaggeration of the interstitial markings. There is no lobar consolidation. There is no significant pleural effusion. There is no pneumothorax. No acute osseous abnormality is identified. IMPRESSION: Low inspiratory volumes causing crowding and exaggeration of the pulmonary markings. No lobar consolidation. ATED BY: DEONDRE ERWIN MD DICTATED DATE/TIME: 12/22/241813 SIGNED BY: DEONDRE ERWIN MD SIGNED DATE/TIME: 12/22/241813 CC: X-Ray, Labs, Meds, VS Comment Imaging was reviewed by this provider, there is no obvious pathological or acute disease process. Pending radiology review Labs were reviewed by this provider, no abnormalities Vital signs reviewed by this provider, clinically stable Time of 1ST Reevaluation: 17:50 Reevaluation 1ST: Unchanged Patient Education/Counseling: Diagnosis, Treatment, Need For Follow Up (Follow up with PCP at next available appointment. Return to the emergency department if symptoms worsen.) Family Education/Counseling: No Family Present SEPSIS Sepsis Screen Date sepsis recognized/suspect: Dec 22, 2024 Time Sepsis recognized/suspect: 1618 Recent Procedure: No On Antibiotic Therapy: No Respiratory Rate >20: No Heart Rate >90: No Temp<36 C (96.8 F) or >38.3 C: No SBP <90 or MAP <65 mmHG: No New Acute Mental Status Change: No Is the patient on CPAP, BIPAP,: No Physician Orders Urinalysis (12/22/24 17:26) Chest Xray 1 View (12/22/24 17:26) Troponin-I Hs (12/22/24 18:26) Troponin-I Hs (12/22/24 20:26) Vital Signs Date Time Temp Pulse Resp B/P (MAP) Pulse Ox O2 Delivery O2 Flow Rate FiO2 12/22/24 16:19 97.8 72 13 141/96 98 97.8 Laboratory Tests Test 12/22/24 18:06 White Blood Count 6.4 10^3/uL (4.4-10.8) Departure 1 Departure Time of Disposition: 19:20 Impression: Primary Impression: Chest wall pain Additional Impression: Animal bite Disposition: HOME / SELF CARE / HOMELESS Condition: Fair e-Prescriptions Albuterol Sulfate (Albuterol Sulfate Hfa) 108 Mcg/Act Aer 108 MCG IN TID PRN, #1 AER Prov: LUPE BROWNEP 12/22/24 Amoxicillin & Pot Clavulanate (AUGMENTIN TABLET) 875 Mg Tb 875 MG PO BID for 7 Days, #14 TAB Prov: LUPE BROWNE 12/22/24 Discharged With: Self Critical Care Note Critical Care Time?: No Stability Stability form required: No Heart Score Heart Score: Heart Score Response (Comments) Value History N/A 0 EKG N/A 0 Age N/A 0 Risk Factors N/A 0 Troponin N/A 0 Total 0 I personally scribed for LUPE BROWNE [employer]STATE AG[employer]Y LICENSEE ([email or web address]) on 12/22/24 at 17:29. Electronically submitted by Kusum Roa ([email or web address]). I personally scribed for LUPE BROWNE [employer]STATE AGENCY LICENSEE ([place]) on 12/22/24 at 17:30. Electronically submitted by Kusum Roa ([email or web address]). I personally scribed for LUPE BROWNE [employer]STATE AGENCY LICENSEE ([place]) on 12/22/24 at 18:24. Electronically submitted by Kusum Roa ([email or web address]). LUPE BROWNE [employer]STATE AG[employer]Y LICENSEE Dec 22, 2024 17:29
--- NOTE | 2024-12-22 18:16 | DVH ---
CHEST RADIOGRAPH REASON FOR EXAM: Chest pain COMPARISON: XY CHEST PORTABLE on DOS: 11/28/24, XY CHEST XRAY 1 VIEW on DOS: 02/17/24, XY CHEST TWO VIE WS ROUTINE on DOS: 04/03/23 TECHNIQUE: One view of the chest is provided FINDINGS: The cardiomediastinal silhouette is stable. There are low inspiratory volumes causing crowd ing and exaggeration of the interstitial markings. There is no lobar consolidation. There is no signi ficant pleural effusion. There is no pneumothorax. No acute osseous abnormality is identified. IMPRESSION: Low inspiratory volumes causing crowding and exaggeration of the pulmonary markings. No lobar consol idation.
[2024-12-22 18:20] LABS: Hematocrit 36.3 % (36.0-46.0); Hemoglobin 11.9 g/dL (12.2-16.2); Mean Corpuscular Hemoglobin 28.7 pg (28.0-32.0); Mean Corpuscular Volume 88.0 fL (80.0-100.0); Nucleated Red Blood Cells % 0.0 %
[2024-12-22 18:27] LABS: Potassium 4.2 mmol/L (3.5-5.1); Sodium 137 mmol/L (136-145)
[2024-12-22 18:28] LABS: Anion Gap 4 (5-15); Carbon Dioxide 25 mmol/L (20-31)
[2024-12-22 18:29] LABS: Calcium 9.0 mg/dL (8.7-10.4)
[2024-12-22 18:33] LABS: BUN/Creatinine Ratio 10.2 (10.0-20.0); Blood Urea Nitrogen 13 mg/dL (9-23)
[2024-12-22 18:47] LABS: Chloride 108 mmol/L (98-107); Glucose 133 mg/dL (74-106)
[2024-12-22] MEDS ORDERED: ALBU108A5 IN (19:22)
[2024-12-22] MEDS ORDERED: AUG875T PO (19:22)
[2024-12-22 22:20] VITALS: BP 123/75; PULSE 61; RESP 16; TEMP 98; O2SAT 99
== END 2024-12-22 22:30 | disposition home or self-care (01) ==
LOC: ER 16:18
DX: S61.254A Open bite of right ring finger without damage to nail, initial encounter (principal); R07.89 Other chest pain; F41.9 Anxiety disorder, unspecified; I10 Essential (primary) hypertension; Z88.1 Allergy status to other antibiotic agents; Z79.890 Hormone replacement therapy; Z79.899 Other long term (current) drug therapy; W64.XXXA Exposure to other animate mechanical forces, initial encounter; Y93.89 Activity, other specified; Y92.89 Other specified places as the place of occurrence of the external cause; Y99.8 Other external cause status
CPT/HCPCS: 36415; 71045; 80048; 83880; 84484; 85025

== ENCOUNTER 2025-02-06 10:34 | Emergency (ER) | payer MEDICARE, OTHER ==
[~2025-02-06] VITALS: Ht 167.6 cm; Wt 72.7 kg
[~2025-02-06 10:34] MED LIST changes: +ALBU108A5 IN
--- NOTE | 2025-02-06 11:36 | DVH ---
CT brain without contrast CLINICAL INDICATION: head injury/fall FINDINGS: The study was performed in a multidetector scanner. This study performed taking axial image s from the skull base up to the vertex. Both brain and bone windows are photographed. Dose lowering techniques have been used including automated exposure control and adjustment of mA and /or KV according to patient size. Normal and symmetrical shape and density of brain parenchyma above and below the tentorium is seen. T here is no mass, midline shift or hydrocephalus. No intra/extra-axial collections demonstrated. There is no intracranial hemorrhage. The calvarium is intact. Soft tissue scalp injury right posterior par ietal region IMPRESSION: 1. Right posterior parietal scalp injury. No acute intracranial pathology. No skull fracture. Computed Tomographic Radiation Dosimetry Report: Total CTDI vol = 60 mGy Total DLP = 953 mGy-cm All C T scans at this medical facility are performed using dose modulation techniques as appropriate to a p erformed exam including the following: Automated exposure control was utilized; adjustment of the MA and/or KvP according to patient size; and use of iterative reconstruction technique.
--- NOTE | 2025-02-06 11:36 | DVH ---
CT cervical spine INDICATION: head injury/fall Technique: Serial axial images were performed through spine and then reformatted in sagital and andres nal planes. FINDINGS: Reversal of the normal cervical lordotic curvature. Cervical vertebral bodies normal in he ight. Disc spaces preserved On transaxial images no narrowing of the central canal and neural foramina. No fracture or dislocatio n. Lung apices clear IMPRESSION: 1. No acute bony trauma. Computed Tomographic Radiation Dosimetry Report: Total CTDI vol = 59.62mGy Total DLP = 59.62mGy-cm All CT scans at this medical facility are performed using dose modulation techniques as appropriate t o a performed exam including the following: Automated exposure control was utilized; adjustment of the MA and/or KvP according to patient size; a nd use of iterative reconstruction technique.
[2025-02-06 12:12] VITALS: BP 130/93; PULSE 79; RESP 20; TEMP 98.4; O2SAT 95
--- NOTE | 2025-02-06 12:13 | ED.PDOC ---
History of Present Illness HPI Comments This is a 44-year-old female that comes in after a fall today in her kitchen. She states she has very bad insomnia that is getting worse. She states sleeps approximately 3 hours a night. She has never followed up with a provider regarding that. Patient states that she got up today and was tired and her leg went out and she fell. No loss of conscious no headache no nausea vomiting just a bad laceration to her head.. She states the falls have been increasing. Chief Complaint: Head Injury Time Seen by MD: 11:44 Primary Care Provider: [facility] Allergies: Coded Allergies: Azithromycin (Verified Allergy, Intermediate, swelling, flushed, tingly, 12/01/24) Home Meds Active Scripts Albuterol Sulfate (Albuterol Sulfate Hfa) 108 Mcg/Act Aer, 108 MCG IN TID PRN, #1 AER Prov:LUPE BROWNE 12/22/24 Amoxicillin & Pot Clavulanate (AUGMENTIN TABLET) 875 Mg Tb, 875 MG PO BID for 7 Days, #14 TAB Prov:LUPE BROWNE 12/22/24 Levothyroxine Sodium (Levothyroxine Sodium) 25 Mcg Tab, 25 MCG PO QAM for 30 Days, #30 TAB [facility] 12/02/24 Hydroxyzine Hcl (Hydroxyzine Hcl) 25 Mg Tab, 1 TAB PO HSPRN PRN for 15 Days, #15 TAB Prov[facility] 12/02/24 Doxycycline (Monohydrate) (Doxycycline) 100 Mg Cap, 100 MG PO BID for 7 Days, #14 CAP Prov:MARVIN HINTONNildaRAMAN [facility] 12/02/24 Amoxicillin & Pot Clavulanate (AUGMENTIN TABLET) 875 Mg Tb, 875 MG PO BID for 7 Days, #14 TAB Prov[facility] 12/02/24 Nitrofurantoin Monohydrate Mac (Macrobid) 100 Mg Cap, 100 MG PO BID for 7 Days, #14 CAP Prov:LUPE BROWNEP 11/02/24 Elastic Bandages & Supports (Hong Wrist Brace) Mis, UNIT XX DAILY, #1 3 Refills Prov:VICENTA CARMONA MD 10/18/24 Nitrofurantoin Monohydrate Mac (Macrobid) 100 Mg Cap, 100 MG PO BID for 7 Days, #14 CAP Prov:LUPE BROWNE [employer] 05/11/24 Cyanocobalamin (B12) 1,000 Mcg Cap, 1000 MCG PO DAILY for 30 Days, #30 CAP Prov:JAQUELIN BLANCHARD [facility] 02/18/24 Gabapentin (Gabapentin) 100 Mg Cap, 100 MG PO BID for 30 Days, #60 CAP [facility] 02/18/24 Ergocalciferol (VITAMIN D 08412 UNIT) 50,000 [place], [address] UNIT PO Q7D for 90 Days, #12 CAP [facility] 02/18/24 Cephalexin (KEFLEX CAPSULE) 250 Mg Cp, 2 CAP PO BID for 4 Days, #28 CAP Prov:LINA SUDHAJAQUELIN 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 History: No Pertinent BELT LOOP CUTTER History Family History Family History: Unknown Social History Smoker: Non-Smoker Alcohol: Sober Drugs: Denies Drug Use Lives In: Home Neurological: reports: dizziness, headache Integumetry: reports: laceration Psychiatric: reports: sleepless All Other Systems: Reviewed and Negative Physical Exam General Appearance: No Apparent Distress, Normal HEENT: Normal ENT Inspection, PERRL/EOMI, Pharynx Normal, TMs Normal Neck: Non-Tender, Normal Inspection, Supple Respiratory: Lungs Clear, Normal Breath Sounds Cardiovascular: Regular Rate/Rhythm Breast Exam: Deferred Gastrointestinal: Non Tender, Normal Bowel Sounds Genitalia: Deferred Pelvic: Deferred Rectal: Deferred Extremities: Normal inspection, Normal range of motion Neurologic: Alert, Motor Weakness, No Motor Deficits, Normal Mood Cerebellar Function: Normal Reflexes: Normal Skin: Lacerations, Rash (Dry scaly rash consistent with either contact dermatitis or psoriasis), Other (Cap laceration approximately 4 cm length) Lymphatic: No Adenopathy Was a procedure done? Was a procedure done?: Yes Sedation Sedation?: No Informed consent obtained: Yes Laceration Repair : Location Right posterior parietal scalp Length 4 cm Anesthetic: Lidocaine, Without epi Laceration Repair Prep: Saline, by Irrigation, Manual Scrub Laceration Repair Wound Comple: epidermis/dermis repair Laceration Repair: Anna Informed consent obtained: Yes Risks, benefits, and alternati: Yes Notes The wound was cleaned lidocaine 1% was injected into the wound. Hair was and closed with approximately seven anna. Patient tolerated p rocedure well. Differential Dx Considerations may include: Subarachnoid hemorrhage skull fracture X-Ray, Labs, Meds, VS Vital Signs Date Time Temp Pulse Resp B/P (MAP) Pulse Ox O2 Delivery O2 Flow Rate FiO2 02/06/25 10:40 98.9 84 18 144/115 98 98.9 X-Ray, Labs, Meds, VS Comment Patient seen and examined by me. Patient is starting to have frequent falls we will need to see Neurology as follow-up. Patient's CT of the neck and head were done. Patient then had a laceration repair done by me with anna. I have reinforced importance of following up Neurology.. Patient also request medication for a rash on her arms that I will give. She will need at least 24 hours of specific head injury instructions to watch plus keep the wound dry for the next two days after that she can let it get wet dry carefully in put topical antibiotic ointment on. [place] come out day 10. CT brain without contrast CLINICAL INDICATION: head injury/fall FINDINGS: The study was performed in a multidetector scanner. This study performed taking axial images from the skull base up to the vertex. Both brain and bone windows are photographed. Dose lowering techniques have been used including automated exposure control and adjustment of mA and/or KV according to patient size. Normal and symmetrical shape and density of brain parenchyma above and below the tentorium is seen. There is no mass, midline shift or hydrocephalus. No intra/extra-axial collections demonstrated. There is no intracranial hemorrhage. The calvarium is intact. Soft tissue scalp injury right posterior parietal region IMPRESSION: 1. Right posterior parietal scalp injury. No acute intracranial pathology. No skull fracture. Computed Tomographic Radiation Dosimetry Report: Total CTDI vol = 60 mGy Total DLP = 953 mGy-cm All CT scans at this medical facility are performed using dose modulation techniques as appropriate to a performed exam including the following: Automated exposure control was utilized; adjustment of the MA and/or KvP according to patient size; and use of iterative reconstruction technique. RING PHYSICIAN: ISSA BRUNSON DO PROCEDURE(s): CS2 - CERVICAL WITHOUT CONTRAST REASON: head injury/fall ORDER NUMBER(s): [id number], ACCESSION NUMBER(s): [id number] CT cervical spine INDICATION: head injury/fall Technique: Serial axial images were performed through spine and then reformatted in sagital and coronal planes. FINDINGS: Reversal of the normal cervical lordotic curvature. Cervical vertebral bodies normal in height. Disc spaces preserved On transaxial images no narrowing of the central canal and neural foramina. No fracture or dislocation. Lung apices clear IMPRESSION: 1. No acute bony trauma. Computed Tomographic Radiation Dosimetry Report: Total CTDI vol = 59.62mGy Total DLP = 59.62mGy-cm All CT scans at this medical facility are performed using dose modulation techniques as appropriate to a performed exam including the following: Automated exposure control was utilized; adjustment of the MA and/or KvP according to patient size; and use of iterative reconstruction technique. ATED BY: DILMA JAMESON MD Time of 1ST Reevaluation: 12:17 Reevaluation 1ST: Improved Patient Education/Counseling: Diagnosis, Treatment, Prognosis, Need For Follow Up Family Education/Counseling: Diagnosis, Treatment, Prognosis, Need For Follow Up SEPSIS Sepsis Screen Date sepsis recognized/suspect: Feb 06, 2025 Time Sepsis recognized/suspect: 1040 Recent Procedure: No On Antibiotic Therapy: No Respiratory Rate >20: No Heart Rate >90: No Temp<36 C (96.8 F) or >38.3 C: No SBP <90 or MAP <65 mmHG: No New Acute Mental Status Change: No Is the patient on CPAP, BIPAP,: No Physician Orders Cervical Without Contrast (02/06/25 10:53) Head Without Contrast (02/06/25 10:53) Vital Signs Date Time Temp Pulse Resp B/P (MAP) Pulse Ox O2 Delivery O2 Flow Rate FiO2 02/06/25 10:40 98.9 84 18 144/115 98 98.9 Departure 1 Departure Time of Disposition: 12:18 Impression: Primary Impression: Head contusion Additional Impressions: Scalp laceration Fall Dermatitis Disposition: HOME / SELF CARE / HOMELESS Condition: Good Additional Instructions: Watch for head injury instructions for the next 24 hours, please wake her up every 2 hours to make sure she knows where she is and not confused If you notice increased nausea vomiting or confusion return to the ER immediately Keep the wound on her head dry for the next 48 hours, after that you may wash her hair dry carefully in apply topical antibiotic ointment on it [place] were removed day 10 Please continue to make follow-up appointment with neurologist e-Prescriptions Triamcinolone Acetonide (Triamcinolone Acetonide) 0.1 % Oin 1 APPLIC TOP BID for 14 Days, #454 GRAMS Prov: LAURI JAFFE 02/06/25 Discharged With: Self, Spouse Critical Care Note Critical Care Time?: No Stability Stability form required: No LAURI JAFFE Feb 06, 2025 12:13
[2025-02-06] MEDS ORDERED: TRIA0.1O TOP (12:21)
[2025-02-06] MEDS: ACETAMINOPHEN 325 MG TAB PO ONE (12:32)
== END 2025-02-06 12:36 | disposition home or self-care (01) ==
LOC: ER 10:34
DX: S01.01XA Laceration without foreign body of scalp, initial encounter (principal); L30.9 Dermatitis, unspecified; G47.00 Insomnia, unspecified; F41.9 Anxiety disorder, unspecified; I10 Essential (primary) hypertension; Z79.899 Other long term (current) drug therapy; Z88.1 Allergy status to other antibiotic agents; W18.39XA Other fall on same level, initial encounter; Y93.89 Activity, other specified; Y92.000 Kitchen of unspecified non-institutional (private) residence as the place of occurrence of the external cause; Y99.8 Other external cause status
CPT/HCPCS: 12002; 70450; 72125